=== PATIENT | male | born 1980 | race Caucasian/White ===

== ENCOUNTER → 2017-04-20 | Outpatient (CLI) | payer BC ==
--- NOTE | 2017-04-20 17:31 | ECHOCARDIOGRAM REPORT ---
*NOTICE TO RECEIVING [employer] This information is strictly Confidential and protected under [place] law. [place] law prohibits you from making any further disclosure of this information unless further disclosure is expressly permitted by the written consent of the person to whom it pertains or is authorized by law. A general authorization for the release of medical or other information is not sufficient for this purpose. Hospital accepts no responsibility if the information is made available to any other person, INCLUDING THE PATIENT. Interpretation Summary * Name: JOEL BLACKWELL Study Date: 04/20/2017 03:22 PM BP: 151/68 mmHg * Patient Location: [facility] HR: 88 * : 1980 (M/d/yyyy) Gender: Male Height: 72 in * Age: 37 yrs Ethnicity: CA Weight: 220 lb * Ordering Physician: Dawood Jones * Referring Physician: Dawood Jones * Performed By: Sirisha Brandon RCS * * Reason For Study: Chest Pain * BSA: 2.2 m2 * Normal biventricular systolic function. * Mild concentric left ventricular hypertrophy. * Left ventricular diastolic dysfunction. * Trace tricuspid regurgitation. Procedure Details * A complete two-dimensional transthoracic echocardiogram was performed (2D, M-mode, Doppler and color flow Doppler). Left Ventricle * The left ventricle is normal in size. * There is mild concentric left ventricular hypertrophy. * Left ventricular systolic function is normal. * Ejection Fraction = 65-70%. * Diastolic dysfunction, Grade II (pseudonormalization pattern). * No regional wall motion abnormalities noted. Right Ventricle * The right ventricle is normal in size and function. * The right ventricular systolic function is normal as assessed by tricuspid annular plane systolic excursion (TAPSE) (normal >1.5 cm). Atria * The left atrial size is normal. * Right atrial size is normal. * No ASD detected; PFO is not assessed. Mitral Valve * The mitral valve is normal. * There is no mitral valve stenosis. * There is no mitral regurgitation noted. Tricuspid Valve * The tricuspid valve is normal. * There is no tricuspid stenosis. * There is trace tricuspid regurgitation. * Right ventricular systolic pressure is normal. Aortic Valve * The aortic valve is trileaflet. * The aortic valve opens well. * Aortic stenosis is absent. * No aortic regurgitation is present. Pulmonic Valve * The pulmonic valve is not well visualized. * The pulmonary valve is inadequately visualized, but the Doppler data is adequate for interpretation. * There is no pulmonic valvular stenosis. * There is no pulmonic valvular regurgitation. Great Vessels * The aortic root is normal size. Pericardium/Pleural * There is no pericardial effusion. Great Vessels * Normal inferior vena cava diameter and respiratory variation suggests normal central venous pressure. MMode 2D Measurements and Calculations IVSd 1.4 cm IVSs 1.5 cm LVIDd 5.6 cm LVIDs 2.8 cm LVPWd 1.4 cm LVPWs 1.5 cm IVS/LVPW 0.96 FS 50.2 % EDV(Teich) 153.8 ml ESV(Teich) 29.3 ml EF(Teich) 81.0 % EDV(cubed) 175.8 ml ESV(cubed) 21.7 ml EF(cubed) 87.7 % % IVS thick 9.5 % % LVPW thick 5.6 % LV mass(C)d 346.1 grams LV mass(C)dI 156.0 grams/m\S\2 LV mass(C)s 143.9 grams LV mass(C)sI 64.9 grams/m\S\2 CO(Teich) 10.8 l/min CI(Teich) 4.9 l/min/m\S\2 SV(Teich) 124.5 ml SI(Teich) 56.1 ml/m\S\2 CO(cubed) 13.4 l/min CI(cubed) 6.0 l/min/m\S\2 SV(cubed) 154.1 ml SI(cubed) 69.5 ml/m\S\2 Ao root diam 3.7 cm Ao root area 10.7 cm\S\2 ACS 2.1 cm LA dimension 3.6 cm asc Aorta Diam 3.3 cm LA/Ao 0.97 LVAd ap4 40.5 cm\S\2 LVLd ap4 9.0 cm EDV(MOD-sp4) 151.0 ml LVAs ap4 22.5 cm\S\2 LVLs ap4 7.5 cm ESV(MOD-sp4) 56.0 ml EF(MOD-sp4) 62.9 % LVAd ap2 38.9 cm\S\2 LVLd ap2 9.5 cm EDV(MOD-sp2) 132.0 ml LVAs ap2 21.0 cm\S\2 LVLs ap2 7.4 cm ESV(MOD-sp2) 52.0 ml EF(MOD-sp2) 60.6 % CO(MOD-sp4) 8.3 l/min CI(MOD-sp4) 3.7 l/min/m\S\2 SV(MOD-sp4) 95.0 ml SI(MOD-sp4) 42.8 ml/m\S\2 CO(MOD-sp2) 7.0 l/min CI(MOD-sp2) 3.1 l/min/m\S\2 SV(MOD-sp2) 80.0 ml SI(MOD-sp2) 36.1 ml/m\S\2 Doppler Measurements and Calculations MV E max shoaib 92.2 cm/sec MV A max shoaib 74.0 cm/sec MV E/A 1.2 MV P1/2t max shoaib 111.0 cm/sec MV P1/2t 75.5 msec MVA(P1/2t) 2.9 cm\S\2 MV dec slope 430.5 cm/sec\S\2 MV dec time 0.22 sec Ao V2 max 143.5 cm/sec Ao max PG 8.2 mmHg Ao max PG (full) 0.64 mmHg LV V1 max PG 7.6 mmHg LV V1 max 137.8 cm/sec PA V2 max 118.8 cm/sec PA max PG 5.7 mmHg TR max shoaib 242.9 cm/sec
== END | disposition home or self-care (01) ==
LOC: C.CPL 14:58
PROVIDERS: ATTEND Family Medicine
DX: R07.9 Chest pain, unspecified (principal)

== ENCOUNTER 2020-07-29 10:49 | Inpatient (IN) ==
--- OUTSIDE RECORDS SUMMARY | 2020-07-29 10:52 | External Medical Summary | Continuity of Care Document ---
:1980 Author Name Gopi Bobo, Provider Address Unavailable Unavailable , Care Team Providers Name Role Phone Non[place] Jihan, Provider Unavailable [email or web address] Unavailable Unavailable Unavailable Unavailable Unavailable Problems Apnea, sleep (780.57) (G47.30) Asthma (493.90) (J45.909) Allergies and Adverse Reactions Codeine Derivatives (Allergy) Iodine Solution SOLN (Allergy) Medications PriLOSEC 20 MG CPDR; TAKE 1 CAPSULE TWICE DAILY. Refills: 0 Vyvanse 30 MG Oral Capsule; TAKE 1 CAPSULE DAILY IN THE MORN ING. Refills: 0 Qvar 80 MCG/ACT AERS; INHALE 1 PUFF TWICE DAILY. Refills: 0 Testosterone Cypionate 100 MG/ML OIL; INJECT ML WEEKLKY Refills: 0 Procedures Procedures not documented Immunizations Immunizations not documented Social History - Smoking Status Never smoked tobacco Plan of Treatment Planned Observations Planned Goals not documented Results No Known Results Results not documented
--- OUTSIDE RECORDS SUMMARY | 2020-07-29 10:52 | External Medical Summary | Continuity of Care Document ---
:1980 Author Name Gopi Bobo, Provider Address Unavailable Unavailable , Care Team Providers Name Role Phone Non[place] Jihan, Provider Unavailable [email or web address] Unavailable Unavailable Unavailable Unavailable Unavailable Problems Asthma (493.90) (J45.909) Apnea, sleep (780.57) (G47.30) Allergies and Adverse Reactions Codeine Derivatives (Allergy) Iodine Solution SOLN (Allergy) Medications Qvar 80 MCG/ACT AERS; INHALE 1 PUFF TWICE DAILY. Refills: 0 Testosterone Cypionate 100 MG/ML OIL; INJECT ML WEEKLKY Refills: 0 Vyvanse 30 MG Oral Capsule; TAKE 1 CAPSULE DAILY IN THE MORN ING. Refills: 0 PriLOSEC 20 MG CPDR; TAKE 1 CAPSULE TWICE DAILY. Refills: 0 Procedures Procedures not documented Immunizations Immunizations not documented Social History - Smoking Status Never smoked tobacco Plan of Treatment Planned Observations Planned Goals not documented Results No Known Results Results not documented
[2020-07-29] MEDS ORDERED: ACETAMINOPHEN 1,000 MG/100 ML VIAL IV STA (12:06)
[2020-07-29] MEDS ORDERED: SODIUM CHLORIDE 0.9% 1000ML 1,000 ML IV SCH ×2 (12:15→14:45)
--- NOTE | 2020-07-29 12:21 | Emergency Department Note ---
History of Present Illness General Chief complaint: Confusion Stated complaint: CONFUSION,NAUSEA,LETHARGIC Time Seen by Provider: 07/29/20 11:37 History of Present Illness This is a 40-year-old male presenting to the emergency department with multiple complaints. 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 The patient has had worsening confusion and fatigue over the past few days. The patient woke up this morning around 2 AM to look for his car keys, and was crawling around on the floor looking for them for greater than 30 minutes in the bedroom. The patient does assist in much of the story, and she is also a registered nurse. The is concerned as the patient has had some intermittent headaches today as well as difficulty finding appropriate words for things. The patient states that he is having difficulty with typing on his cell phone and text messages, and feels that his fingers and thumbs are not moving the way they should. The patient has had some COVID-19 exposures but no fevers or chills. He is not having neck pain, chest pain, chest tightness, s hortness of breath, or abdominal pain. He does have a history of ADHD and depression, but has not had any significant recent medication changes. He denies drug or alcohol use. He rates his current discomfort a 4/10. Last known well was 10 PM, greater than 12 hours prior to patient's arrival. Home Medications Medication Instructions Recorded Confirmed Type albuterol sulfate 1 puff INHALATION QID PRN 08/09/18 07/29/20 History omeprazole magnesium [Prilosec OTC] 20 mg PO BID 08/09/18 07/29/20 History bupropion HCl 200 mg PO BID 07/29/20 07/29/20 History dextroamphetamine 30 mg PO BID 07/29/20 07/29/20 History Allergies Allergy/AdvReac Type Severity Reaction Status Date / Time iodine Allergy Severe Anaphylaxis Verified 08/22/18 09:30 codeine Allergy Intermediate Rash Verified 08/22/18 09:30 Past Med/Surg History Medical History (Updated 07/29/20 @ 17:20 by Skyla Fitzgerald DO) ADHD Anxiety Asthma Congenital glaucoma Depression GERD (gastroesophageal reflux disease) Obesity (BMI 30.0-34.9) Sleep apnea CPAP Surgical History H/O wisdom tooth extraction History of adenoidectomy History of colonoscopy History of esophagogastroduodenoscopy (EGD) History of tonsillectomy Family History (Updated 07/29/20 @ 17:13 by Skyla Fitzgerald DO) Denies family history of Myocardial infarction Stroke Social History (Updated 07/29/20 @ 17:13 by Skyla Fitzgerald DO) Smoking Status: Never smoker Second Hand Exposure: No; Do You Dip or Chew Tobacco: No; Hx Alcohol Use: Yes Alcohol type: beer Alcohol Intake Frequency Comment: 2-3 beers or drinks a week Hx Substance Use: No Preferred Language: Surinamese Communication Ability: Effective 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 Beliefs That Will Affect Care: None Current Living Situation: Spouse Current Living Situation Comment: and 2 kids Feels Safe at Home: Yes Safety Concerns: Feels Safe At This Time Assistive Devices: CPAP and Glasses Review of Systems A total of 10 systems reviewed and were otherwise negative Physical Exam Vital Signs Vital Signs - 24 hr 07/29/20 10:55 07/29/20 11:37 07/29/20 11:47 Temperature Temperature Source Oral Pulse Rate 95 H 93 H 95 H Pulse Rate [Right Finger] Pulse Rate from SpO2 Sensor Pulse Rhythm Regular Pulse Rhythm [Right Finger] Pulse Strength Normal Pulse Strength [Right Finger] Respiratory Rate 20 Respiratory Effort / Characteristics Non-Labored Spontaneous Respiratory Depth Normal Respiratory Pattern Regular Blood Pressure 160/82 H 147/72 H Blood Pressure Mean 108 98 Blood Pressure Position Sitting Pulse Oximetry 97 Oxygen Delivery Method Room Air Sepsis Recent Fever Within 48 Hours No Sepsis New/Unexplained Change in Mental Status N/A Sepsis Action Taken by Nursing No Action Required 07/29/20 12:00 07/29/20 12:01 07/29/20 12:30 Temperature Temperature Source Pulse Rate 108 H 100 H 96 H Pulse Rate [Right Finger] Pulse Rate from SpO2 Sensor Pulse Rhythm Pulse Rhythm [Right Finger] Pulse Strength Pulse Strength [Right Finger] Respiratory Rate Respiratory Effort / Characteristics Respiratory Depth Respiratory Pattern Blood Pressure 150/80 H 145/78 H Blood Pressure Mean 96 94 Blood Pressure Position Pulse Oximetry Oxygen Delivery Method Sepsis Recent Fever Within 48 Hours Sepsis New/Unexplained Change in Mental Status Sepsis Action Taken by Nursing 07/29/20 12:55 07/29/20 13:00 07/29/20 13:01 Temperature Temperature Source Pulse Rate 95 H 96 H Pulse Rate [Right Finger] Pulse Rate from SpO2 Sensor 96 H 96 H Pulse Rhythm Pulse Rhythm [Right Finger] Pulse Strength Pulse Strength [Right Finger] Respiratory Rate 15 15 Respiratory Effort / Characteristics Respiratory Depth Respiratory Pattern Blood Pressure 145/69 H Blood Pressure Mean 97 Blood Pressure Position Pulse Oximetry 96 96 Oxygen Delivery Method Room Air Sepsis Recent Fever Within 48 Hours Sepsis New/Unexplained Change in Mental Status Sepsis Action Taken by Nursing 07/29/20 13:02 07/29/20 13:30 07/29/20 14:38 Temperature 37.1 C Temperature Source Pulse Rate 96 H 90 Pulse Rate [Right Finger] Pulse Rate from SpO2 Sensor 96 H 90 Pulse Rhythm Pulse Rhythm [Right Finger] Pulse Strength Pulse Strength [Right Finger] Respiratory Rate 18 Respiratory Effort / Characteristics Respiratory Depth Respiratory Pattern Blood Pressure 151/55 H 140/74 Blood Pressure Mean 98 90 Blood Pressure Position Pulse Oximetry 97 97 Oxygen Delivery Method Sepsis Recent Fever Within 48 Hours Sepsis New/Unexplained Change in Mental Status Sepsis Action Taken by Nursing 07/29/20 14:49 07/29/20 16:10 07/29/20 16:11 Temperature Temperature Source Pulse Rate Pulse Rate [Right Finger] 91 H Pulse Rate from SpO2 Sensor 91 H 91 H Pulse Rhythm Pulse Rhythm [Right Finger] Regular Pulse Strength Pulse Strength [Right Finger] Normal Respiratory Rate 18 Respiratory Effort / Characteristics Non-Labored Spontaneous Respiratory Depth Normal Respiratory Pattern Blood Pressure 147/64 H Blood Pressure Mean 91 Blood Pressure Position Pulse Oximetry 98 97 96 Oxygen Delivery Method Room Air Room Air Room Air Sepsis Recent Fever Within 48 Hours Sepsis New/Unexplained Change in Mental Status Sepsis Action Taken by Nursing 07/29/20 16:30 07/29/20 16:31 07/29/20 17:00 Temperature Temperature Source Pulse Rate Pulse Rate [Right Finger] Pulse Rate from SpO2 Sensor 91 H 89 Pulse Rhythm Pulse Rhythm [Right Finger] Pulse Strength Pulse Strength [Right Finger] Respiratory Rate Respiratory Effort / Characteristics Respiratory Depth Respiratory Pattern Blood Pressure 149/86 H 139/64 Blood Pressure Mean 103 83 Blood Pressure Position Pulse Oximetry 98 95 Oxygen Delivery Method Room Air Room Air Sepsis Recent Fever Within 48 Hours Sepsis New/Unexplained Change in Mental Status Sepsis Action Taken by Nursing 07/29/20 17:01 Temperature Temperature Source Pulse Rate Pulse Rate [Right Finger] Pulse Rate from SpO2 Sensor 87 Pulse Rhythm Pulse Rhythm [Right Finger] Pulse Strength Pulse Strength [Right Finger] Respiratory Rate Respiratory Effort / Characteristics Respiratory Depth Respiratory Pattern Blood Pressure Blood Pressure Mean Blood Pressure Position Pulse Oximetry 97 Oxygen Delivery Method Room Air Sepsis Recent Fever Within 48 Hours Sepsis New/Unexplained Change in Mental Status Sepsis Action Taken by Nursing VITALS: Vitals are noted on the nurse's note and reviewed by myself. Vital signs stable. GENERAL: Well-developed, well-nourished, white male who does stutter at baseline. He is diaphoretic and sweating profoundly. Patient is cooperative with the examination. HEAD: Normocephalic atraumatic. EARS: External ear normal. External auditory canals clear, tympanic membranes pearly hunter without erythema or effusion bilaterally. EYES: Pupils equal round and reactive to light and accommodation. Conjunctivae without injection, sclerae without icterus. Extraocular movements intact. NOSE: Patent, turbinates without inflammation or discharge. MOUTH: Mucous membranes moist. Tonsils are not enlarged. Pharynx without eryt bill, blood, or exudate. Uvula midline. Airway patent. NECK: Supple without nuchal rigidity. No lymphadenopathy. No thyromegaly. Cervical spine is nontender. HEART: Regular rate and rhythm without murmurs gallops or rubs. LUNGS: Clear to auscultation bilaterally without wheezes, rales or rhonchi. No retractions or accessory muscle use. ABDOMEN: Positive normal bowel sounds x 4. Soft, nontender, without masses or organomegaly. No guarding or rebound tenderness. MUSCULOSKELETAL: No muscle atrophy, erythema, or edema noted. Full range of motion in all extremities. No tenderness to palpation. Cra Officer strength 5/5. NEURO: Patient was alert and oriented to person place and time. CN II through XII grossly intact. No focal neurological deficits. GCS 15. Patellar reflex intact bilateral. SKIN: The skin was without rashes, erythema, edema, or bruising. Capillary refill less than 2 seconds. Course Administered Medications Bupropion HCl (Bupropion Sr 100 Mg Tabcr) 200 mg PO BID [facility] Stop: 08/28/20 20:59 Last Admin: 07/29/20 20:38 Dose: 200 mg Documented by: [id number] Sodium Chloride (Nss 1000ml) 1,000 mls @ 150 mls/hr IV .Q6H40M MATHEW Stop: 08/28/20 19:23 Last Admin: 07/30/20 03:30 Dose: 150 mls/hr Documented by: [id number] Infusion: 07/30/20 03:16 Dose: 150 mls/hr Documented by: [id number] Admin: 07/29/20 20:35 Dose: 150 mls/hr Documented by: [id number] Pantoprazole Sodium (Pantoprazole 40 Mg Tab) 40 mg PO BID MATHEW Stop: 08/28/20 20:59 Last Admin: 07/29/20 20:39 Dose: 40 mg Documented by: [id number] Discontinued Medications Sodium Chloride (Nss 1000ml) 1,000 mls @ 999 mls/hr IV .Q1H1M MATHEW Stop: 07/29/20 13:15 Last Infusion: 07/29/20 13:51 Dose: 0 mls/hr Documented by: [id number] Admin: 07/29/20 12:50 Dose: 999 mls/hr Documented by: [id number] Acetaminophen (Ofirmev) 1,000 mg in 100 mls @ 400 mls/hr IV NOW STA Stop: 07/29/20 12:20 Last Infusion: 07/29/20 13:05 Dose: 0 mls/hr Documented by: [id number] Admin: 07/29/20 12:50 Dose: 400 mls/hr Documented by: [id number] Sodium Chloride (Nss 1000ml) 1,000 mls @ 999 mls/hr IV .Q1H1M MATHEW Stop: 07/29/20 15:45 Last Infusion: 07/29/20 15:51 Dose: 0 mls/hr Documented by: [id number] Admin: 07/29/20 14:50 Dose: 999 mls/hr Documented by: [id number] Medical Decision Making Differential Diagnosis Differential includes infection, acute coronary syndrome, myocardial infarction, CVA, TIA, anemia, infection, pneumonia, UTI, pyelonephritis, poor nutrition, dehydration, electrolyte disturbance,hypoglycemia. Laboratory Data Result diagrams: 07/29/20 11:25 07/29/20 11:25 Lab Results 07/29/20 07/29/20 07/29/20 Range/Units 11:25 11:25 11:25 WBC 9.24 (4.8-10.8) K/uL RBC 6.71 H (4.7-6.1) M/uL Hgb 19.3 H (14.0-18.0) g/dL Hct 58.4 H (42-52) % MCV 87.0 (80-100) fL MCH 28.8 (25-34) pg MCHC 33.0 (32-36) g/dL RDW Std Deviation 51.8 H (36.4-46.3) fL RDW Coeff of Ron 16.3 H (11.5-14.5) % Plt Count 314 (130-400) K/uL MPV 9.6 (7.4-10.4) fL Immature Gran % (Auto) 0.4 % Neut % (Auto) 55.9 % Lymph % (Auto) 28.1 % [place] % (Auto) 13.6 % Eos % (Auto) 1.7 % Baso % (Auto) 0.3 % Neut # (Auto) 5.15 (1.4-6.5) K/uL Lymph # (Auto) 2.60 (1.2-3.4) K/uL [place] # (Auto) 1.26 H (0.11-0.59) K/uL Eos # (Auto) 0.16 (0-0.5) K/uL Baso # (Auto) 0.03 (0-0.2) K/uL Immature Gran # (Auto) 0.04 H (0.00-0.02) K/uL ESR 3 (0-14) mm/hr PT INR APTT PTT Ratio Sodium 140 (136-145) mmol/L Potassium 4.5 (3.5-5.1) mmol/L Chloride 109 H (98-107) mmol/L Carbon Dioxide 24 (21-32) mmol/L Anion Gap 7.0 (3-11) BUN 21 H (7-18) mg/dl Creatinine 1.44 H (0.6-1.4) mg/dl Est Cr Clr Drug Dosing Not Reportable Est GFR ( Amer) 70.9 Est GFR (Non-Af Amer) 61.2 BUN/Creatinine Ratio 14.2 (10-20) Glucose 107 H (70-99) mg/dl Lactate (0.4-2.0) mmol/L Calcium 9.6 (8.5-10.1) mg/dl Magnesium TNP Total Bilirubin 0.7 (0.2-1) mg/dl AST 40 H (15-37) U/L ALT 32 (12-78) U/L Alkaline Phosphatase 53 (45-117) U/L Total Creatine Kinase CK-MB (CK-2) CK/CKMB % Calc Troponin I < 0.015 (0-0.045) ng/ml C-Reactive Protein < 0.29 (0-0.29) mg/dl Total Protein 7.6 (6.4-8.2) gm/dl Albumin 3.4 (3.4-5.0) gm/dl Globulin 4.2 H (2.5-4.0) gm/dl Albumin/Globulin Ratio 0.8 L (0.9-2) Lipase 315 (73-393) U/L TSH 1.590 (0.300-4.500) uIu/ml Urine Color Urine Appearance (Clear) Urine pH (4.5-7.5) Ur Specific [place] (1.000-1.030) Urine Protein (Negative) Urine Glucose (UA) (Negative) Urine Ketones (Negative) Urine Blood (Negative) Urine Nitrite (Negative) Urine Bilirubin (Negative) Urine Urobilinogen (Negative) Ur Leukocyte Esterase (Negative) Urine WBC (Auto) (0-5) /hpf Urine RBC (Auto) (0-4) /hpf U Hyaline Cast (Auto) (0-5) /lpf U Epithel Cells (Auto) (0-5) /lpf Urine Bacteria (Auto) (Negative) Urine Opiates Screen (Neg) Ur Methadone, Qual (Neg) Urine Barbiturates (Neg) Ur Phencyclidine (PCP) (Neg) U Amphetamin/Meth Scrn (Neg) MDMA (Ecstasy) Screen (Neg) U Benzodiazepines Scrn (Neg) Ur Cocaine Metabolite (Neg) U Marijuana (THC) Screen (Neg) Ethyl Alcohol mg/dL (0-3) mg/dl Lyme Disease IgG Ab (Negative) Lyme Disease IgM Ab (Negative) 07/29/20 07/29/20 07/29/20 Range/Units 11:25 11:25 11:25 WBC (4.8-10.8) K/uL RBC (4.7-6.1) M/uL Hgb (14.0-18.0) g/dL Hct (42-52) % MCV (80-100) fL MCH (25-34) pg MCHC (32-36) g/dL RDW Std Deviation (36.4-46.3) fL RDW Coeff of Ron (11.5-14.5) % Plt Count (130-400) K/uL MPV (7.4-10.4) fL Immature Gran % (Auto) % Neut % (Auto) % Lymph % (Auto) % [place] % (Auto) % Eos % (Auto) % Baso % (Auto) % Neut # (Auto) (1.4-6.5) K/uL Lymph # (Auto) (1.2-3.4) K/uL [place] # (Auto) (0.11-0.59) K/uL Eos # (Auto) (0-0.5) K/uL Baso # (Auto) (0-0.2) K/uL Immature Gran # (Auto) (0.00-0.02) K/uL ESR (0-14) mm/hr PT Cancelled INR Cancelled APTT Cancelled PTT Ratio Cancelled Sodium (136-145) mmol/L Potassium (3.5-5.1) mmol/L Chloride (98-107) mmol/L Carbon Dioxide (21-32) mmol/L Anion Gap (3-11) BUN (7-18) mg/dl Creatinine (0.6-1.4) mg/dl Est Cr Clr Drug Dosing Est GFR ( Amer) Est GFR (Non-Af Amer) BUN/Creatinine Ratio (10-20) Glucose (70-99) mg/dl Lactate (0.4-2.0) mmol/L Calcium (8.5-10.1) mg/dl Magnesium Total Bilirubin (0.2-1) mg/dl AST (15-37) U/L ALT (12-78) U/L Alkaline Phosphatase (45-117) U/L Total Creatine Kinase Cancelled CK-MB (CK-2) Cancelled CK/CKMB % Calc Cancelled Troponin I (0-0.045) ng/ml C-Reactive Protein (0-0.29) mg/dl Total Protein (6.4-8.2) gm/dl Albumin (3.4-5.0) gm/dl Globulin (2.5-4.0) gm/dl Albumin/Globulin Ratio (0.9-2) Lipase (73-393) U/L TSH (0.300-4.500) uIu/ml Urine Color Urine Appearance (Clear) Urine pH (4.5-7.5) Ur Specific [place] (1.000-1.030) Urine Protein (Negative) Urine Glucose (UA) (Negative) Urine Ketones (Negative) Urine Blood (Negative) Urine Nitrite (Negative) Urine Bilirubin (Negative) Urine Urobilinogen (Negative) Ur Leukocyte Esterase (Negative) Urine WBC (Auto) (0-5) /hpf Urine RBC (Auto) (0-4) /hpf U Hyaline Cast (Auto) (0-5) /lpf U Epithel Cells (Auto) (0-5) /lpf Urine Bacteria (Auto) (Negative) Urine Opiates Screen (Neg) Ur Methadone, Qual (Neg) Urine Barbiturates (Neg) Ur Phencyclidine (PCP) (Neg) U Amphetamin/Meth Scrn (Neg) MDMA (Ecstasy) Screen (Neg) U Benzodiazepines Scrn (Neg) Ur Cocaine Metabolite (Neg) U Marijuana (THC) Screen (Neg) Ethyl Alcohol mg/dL (0-3) mg/dl Lyme Disease IgG Ab Negative (Negative) Lyme Disease IgM Ab Negative (Negative) 07/29/20 07/29/20 07/29/20 Range/Units 13:10 13:10 13:24 WBC (4.8-10.8) K/uL RBC (4.7-6.1) M/uL Hgb (14.0-18.0) g/dL Hct (42-52) % MCV (80-100) fL MCH (25-34) pg MCHC (32-36) g/dL RDW Std Deviation (36.4-46.3) fL RDW Coeff of Ron (11.5-14.5) % Plt Count (130-400) K/uL MPV (7.4-10.4) fL Immature Gran % (Auto) % Neut % (Auto) % Lymph % (Auto) % [place] % (Auto) % Eos % (Auto) % Baso % (Auto) % Neut # (Auto) (1.4-6.5) K/uL Lymph # (Auto) (1.2-3.4) K/uL [place] # (Auto) (0.11-0.59) K/uL Eos # (Auto) (0-0.5) K/uL Baso # (Auto) (0-0.2) K/uL Immature Gran # (Auto) (0.00-0.02) K/uL ESR (0-14) mm/hr PT 12.3 H INR 1.2 H APTT 24.2 PTT Ratio 0.9 Sodium (136-145) mmol/L Potassium (3.5-5.1) mmol/L Chloride (98-107) mmol/L Carbon Dioxide (21-32) mmol/L Anion Gap (3-11) BUN (7-18) mg/dl Creatinine (0.6-1.4) mg/dl Est Cr Clr Drug Dosing Est GFR ( Amer) Est GFR (Non-Af Amer) BUN/Creatinine Ratio (10-20) Glucose (70-99) mg/dl Lactate 0.7 (0.4-2.0) mmol/L Calcium (8.5-10.1) mg/dl Magnesium Total Bilirubin (0.2-1) mg/dl AST (15-37) U/L ALT (12-78) U/L Alkaline Phosphatase (45-117) U/L Total Creatine Kinase CK-MB (CK-2) CK/CKMB % Calc Troponin I (0-0.045) ng/ml C-Reactive Protein (0-0.29) mg/dl Total Protein (6.4-8.2) gm/dl Albumin (3.4-5.0) gm/dl Globulin (2.5-4.0) gm/dl Albumin/Globulin Ratio (0.9-2) Lipase (73-393) U/L TSH (0.300-4.500) uIu/ml Urine Color Urine Appearance (Clear) Urine pH (4.5-7.5) Ur Specific [place] (1.000-1.030) Urine Protein (Negative) Urine Glucose (UA) (Negative) Urine Ketones (Negative) Urine Blood (Negative) Urine Nitrite (Negative) Urine Bilirubin (Negative) Urine Urobilinogen (Negative) Ur Leukocyte Esterase (Negative) Urine WBC (Auto) (0-5) /hpf Urine RBC (Auto) (0-4) /hpf U Hyaline Cast (Auto) (0-5) /lpf U Epithel Cells (Auto) (0-5) /lpf Urine Bacteria (Auto) (Negative) Urine Opiates Screen (Neg) Ur Methadone, Qual (Neg) Urine Barbiturates (Neg) Ur Phencyclidine (PCP) (Neg) U Amphetamin/Meth Scrn (Neg) MDMA (Ecstasy) Screen (Neg) U Benzodiazepines Scrn (Neg) Ur Cocaine Metabolite (Neg) U Marijuana (THC) Screen (Neg) Ethyl Alcohol mg/dL < 3.0 (0-3) mg/dl Lyme Disease IgG Ab (Negative) Lyme Disease IgM Ab (Negative) 07/29/20 07/29/20 Range/Units 15:50 15:50 WBC (4.8-10.8) K/uL RBC (4.7-6.1) M/uL Hgb (14.0-18.0) g/dL Hct (42-52) % MCV (80-100) fL MCH (25-34) pg MCHC (32-36) g/dL RDW Std Deviation (36.4-46.3) fL RDW Coeff of Ron (11.5-14.5) % Plt Count (130-400) K/uL MPV (7.4-10.4) fL Immature Gran % (Auto) % Neut % (Auto) % Lymph % (Auto) % [place] % (Auto) % Eos % (Auto) % Baso % (Auto) % Neut # (Auto) (1.4-6.5) K/uL Lymph # (Auto) (1.2-3.4) K/uL [place] # (Auto) (0.11-0.59) K/uL Eos # (Auto) (0-0.5) K/uL Baso # (Auto) (0-0.2) K/uL Immature Gran # (Auto) (0.00-0.02) K/uL ESR (0-14) mm/hr PT INR APTT PTT Ratio Sodium (136-145) mmol/L Potassium (3.5-5.1) mmol/L Chloride (98-107) mmol/L Carbon Dioxide (21-32) mmol/L Anion Gap (3-11) BUN (7-18) mg/dl Creatinine (0.6-1.4) mg/dl Est Cr Clr Drug Dosing Est GFR ( Amer) Est GFR (Non-Af Amer) BUN/Creatinine Ratio (10-20) Glucose (70-99) mg/dl Lactate (0.4-2.0) mmol/L Calcium (8.5-10.1) mg/dl Magnesium Total Bilirubin (0.2-1) mg/dl AST (15-37) U/L ALT (12-78) U/L Alkaline Phosphatase (45-117) U/L Total Creatine Kinase CK-MB (CK-2) CK/CKMB % Calc Troponin I (0-0.045) ng/ml C-Reactive Protein (0-0.29) mg/dl Total Protein (6.4-8.2) gm/dl Albumin (3.4-5.0) gm/dl Globulin (2.5-4.0) gm/dl Albumin/Globulin Ratio (0.9-2) Lipase (73-393) U/L TSH (0.300-4.500) uIu/ml Urine Color Dark Yellow Urine Appearance Clear (Clear) Urine pH 6.5 (4.5-7.5) Ur Specific [place] 1.025 (1.000-1.030) Urine Protein Negative (Negative) Urine Glucose (UA) Negative (Negative) Urine Ketones Negative (Negative) Urine Blood Trace H (Negative) Urine Nitrite Negative (Negative) Urine Bilirubin Negative (Negative) Urine Urobilinogen Negative (Negative) Ur Leukocyte Esterase Negative (Negative) Urine WBC (Auto) 1-5 (0-5) /hpf Urine RBC (Auto) 0-4 (0-4) /hpf U Hyaline Cast (Auto) 0 (0-5) /lpf U Epithel Cells (Auto) 0-5 (0-5) /lpf Urine Bacteria (Auto) Negative (Negative) Urine Opiates Screen Neg (Neg) Ur Methadone, Qual Neg (Neg) Urine Barbiturates Neg (Neg) Ur Phencyclidine (PCP) Neg (Neg) U Amphetamin/Meth Scrn Neg (Neg) MDMA (Ecstasy) Screen Pos H (Neg) U Benzodiazepines Scrn Neg (Neg) Ur Cocaine Metabolite Neg (Neg) U Marijuana (THC) Screen Neg (Neg) Ethyl Alcohol mg/dL (0-3) mg/dl Lyme Disease IgG Ab (Negative) Lyme Disease IgM Ab (Negative) Imaging Data Radiologist's Impression: CT SCAN OF THE BRAIN WITHOUT IV CONTRAST CLINICAL HISTORY: Change in mental status. COMPARISON STUDY: No priors. TECHNIQUE: Unenhanced axial CT scan of the brain is performed from the vertex to the skull base. A dose lowering technique was utilized adhering to the principles of ALARA. CT DOSE: 669.45 mGycm FINDINGS: Brain parenchyma: The brain parenchyma is normal in appearance. There is no hemorrhage, mass effect, or evidence of acute territorial ischemia by CT criteria. Hunter-white matter differentiation is preserved. No extra-axial fluid collection is seen. Ventricles, sulci, cisterns: Normal in configuration. Intracranial vasculature: The visualized intracranial vasculature at the skull base is normal in appearance. Calvarium: Unremarkable. Sinuses and mastoids: The visualized paranasal sinuses are clear. The mastoid air cells are well pneumatized. Orbits: The bony orbits are grossly intact. IMPRESSION: No acute intracranial abnormality. XR chest 1V portable CLINICAL HISTORY: altered mental. covid exposure COMPARISON STUDY: No previous studies for comparison. FINDINGS: Lung volumes are normal. Lungs are clear. There is no pneumothorax or pleural effusion. Cardiac size is normal. Mediastinal contours are normal. There is no evidence for pulmonary edema. IMPRESSION: No acute cardiopulmonary findings. ECG Data Attestation: I personally reviewed and interpreted this ECG as follows: Indication: + altered mental status Additional Comments: Normal sinus rhythm @94 bpm Possible Left atrial enlargement Borderline ECG No previous ECGs available MDM Narrative Physical exam and history were performed. Nursing notes, EMR, and Medication List were personally reviewed. Patient appears to have confusion and altered mental status. The patient does have a stutter at baseline, but does have difficulty with finding his words today. Much of the history is provided by his , and both the and patient seem very reliable regarding the history. IV access was established and labs were obtained. The patient is very diaphoretic without fever here in the ER. He was given a total of 3 L IV fluids as well as IV Tylenol. Covid testing was performed. EKG as above. An order was placed for continuous cardiac monitoring. The monitor shows a rate of 78 with normal sinus rhythm. The patient's blood work is as above and was reviewed. He does not have an elevated white blood cell count. He does have an elevated hemoglobin of 19.3, however this is reported to be normal by the patient and his . Sed rate and CRP are normal. INR is 1.2. Creatinine is slightly elevated at 1.44. CK is 335. Troponin is nondetectable. Lipase and transaminases are nondiagnostic. Urine is very dark, however it is without significant evidence of infection or other findings. Drug abuse screen is positive for ecstasy, however this is likely a cross positive from his bupropion. Lyme and Covid were both negative. Chest x-ray and CT of the head were reviewed by myself and radiology showing no acute process. The patient was reevaluated multiple times at the course of his stay. The patient continues to appear unwell and altered. His case was discussed with my attending, Dr. Greenwood, who also independently evaluated the patient. We agree that his work-up in the ER is thankfully unremarkable, however his clinical course is still quite concerning. Because of his symptoms the case was discussed with the on-call hospitalist, who agreed to evaluate the patient here in the ER. Please see their dictation for further patient course, plan, and disposition. The chart was completed utilizing [employer] Speech Voice Recognition Software. Gram matical errors, random word insertions, pronoun errors, and incomplete sentences are an occasional consequence of this system due to software limitations, ambient noise, and hardware issues. Any formal questions or concerns about the content, text, or information contained within the body of this dictation should be directly addressed to the provider for clarification. . Impression & Plan Altered mental status, Confusion, Word finding difficulty, Dehydration Discharge Plan Visit Data Chief Complaint: Confusion Stated Complaint: CONFUSION,NAUSEA,LETHARGIC ED Provider: Dawood Greenwood ED Midlevel Provider: Dg Rebollar Discharge Problem: Altered mental status, Confusion, Word finding difficulty, Dehydration Patient Disposition: Admitted As Inpatient Discharge Instructions Interventions: ED Discharge Assessment Last Done: 07/29/20 18:49 Discharge Problem: Altered mental status Qualifiers: Altered mental status type: unspecified Qualified Code(s): R41.82 - Altered mental status, unspecified
[2020-07-29 12:34] LABS: Basophils # (auto) 0.03 K/uL (0-0.2); Basophils % (auto) 0.3 %; Eosinophils # (auto) 0.16 K/uL (0-0.5); Eosinophils % (auto) 1.7 %; Hematocrit (blood only) 58.4 % (42-52); Hemoglobin 19.3 g/dL (14.0-18.0); Immature Granulocytes # (auto) 0.04 K/uL (0.00-0.02); Immature Granulocytes % (auto) 0.4 %; Lymphocytes % (auto) 28.1 %; Mean Corpuscular Hemoglobin 28.8 pg (25-34); Mean Platelet Volume 9.6 fL (7.4-10.4); Monocytes # (auto) 1.26 K/uL (0.11-0.59); Monocytes % (auto) 13.6 %; Neutrophils # (auto) 5.15 K/uL (1.4-6.5); Neutrophils % (auto) 55.9 %; Platelet Count 314 K/uL (130-400); RDW Coefficient of Variation 16.3 % (11.5-14.5); RDW Standard Deviation 51.8 fL (36.4-46.3); Red Blood Count 6.71 M/uL (4.7-6.1); White Blood Count 9.24 K/uL (4.8-10.8)
--- NOTE | 2020-07-29 12:44 | XRay Report ---
XR chest 1V portable CLINICAL HISTORY: altered mental. covid exposure COMPARISON STUDY: No previous studies for comparison. FINDINGS: Lung volumes are normal. Lungs are clear. There is no pneumothorax or pleural effusion. Car diac size is normal. Mediastinal contours are normal. There is no evidence for pulmonary edema. IMPRESSION: No acute cardiopulmonary findings. ACT 112: Negative or not required by law. Electronically signed by: Chance Reid M.D. 07/29/2020 12:42 PM
[2020-07-29 12:59] LABS: Alanine Aminotransferase 32 U/L (12-78); Albumin Level 3.4 gm/dl (3.4-5.0); Aspartate Aminotransferase 40 U/L (15-37); BUN Creatinine Ratio 14.2 (10-20); Blood Urea Nitrogen 21 mg/dl (7-18); C Reactive Protein < 0.29 mg/dl (0-0.29); Calcium 9.6 mg/dl (8.5-10.1); Carbon Dioxide 24 mmol/L (21-32); Chloride 109 mmol/L (98-107); Est GFR (African American) 70.9; Est GFR (Non-African American) 61.2; Glucose 107 mg/dl (70-99); Lipase 315 U/L (73-393); Potassium 4.5 mmol/L (3.5-5.1); Sodium 140 mmol/L (136-145)
[2020-07-29 13:01] LABS: Albumin Globulin Ratio 0.8 (0.9-2); Alkaline Phosphatase 53 U/L (45-117); Bilirubin,Total 0.7 mg/dl (0.2-1); Globulin 4.2 gm/dl (2.5-4.0); Total Protein 7.6 gm/dl (6.4-8.2); Troponin I < 0.015 ng/ml (0-0.045)
[2020-07-29 13:42] LABS: INR 1.2 (0.9-1.1); Partial Thromboplastin Ratio 0.9; Partial Thromboplastin Time 24.2 Seconds (21.0-31.0); Prothrombin Time 12.3 Seconds (9.0-12.0)
[2020-07-29 13:47] LABS: Lyme Ab IgG w/WB Rflx Negative (Negative); Lyme Ab IgM w/WB Rflx Negative (Negative)
--- NOTE | 2020-07-29 13:57 | CT Scan Report ---
CT SCAN OF THE BRAIN WITHOUT IV CONTRAST CLINICAL HISTORY: Change in mental status. COMPARISON STUDY: No priors. TECHNIQUE: Unenhanced axial CT scan of the brain is performed from the vertex to the skull base. A d ose lowering technique was utilized adhering to the principles of ALARA. CT DOSE: 669.45 mGycm FINDINGS: Brain parenchyma: The brain parenchyma is normal in appearance. There is no hemorrhage, mass effect, or evidence of acute territorial ischemia by CT criteria. Hunter-white matter differentiation is preser fortino. No extra-axial fluid collection is seen. Ventricles, sulci, cisterns: Normal in configuration. Intracranial vasculature: The visualized intracranial vasculature at the skull base is normal in appe arance. Calvarium: Unremarkable. Sinuses and mastoids: The visualized paranasal sinuses are clear. The mastoid air cells are well pneu matized. Orbits: The bony orbits are grossly intact. IMPRESSION: No acute intracranial abnormality. ACT 112: Negative or not required by law. Electronically signed by: Sebas Quintana M.D. 07/29/2020 1:55 PM
--- NOTE | 2020-07-29 15:12 | Emergency Department Note ---
General (ED) Blank Date of Service July 29, 2020 This patient has had episodes where he has been confused and also having trouble getting words out for the last several days it got worse last night. He was looking for his keys under the bed apparently he also feels like he is having a hard time texting but has no focal numbness or weakness. He denies a fever or headache or neck pain or stiffness. No fall or trauma. He does have a baseline stutter and has a hard time with words at baseline but he says he is definitely different. We did extensive work-up and thus far his work-up was unremarkable Covid test was negative CAT scan of his head was negative electrolytes and Lyme testing were negative. On my exam, he has no meningeal signs or stiffness he is well-appearing and nontoxic. He has a normal neurologic exam he was complaining that he is some coordination issues with his hands bilaterally but has got good normal motor and sensation intact reflexes in the upper extremities therefore unlikely Guillian- Khan at this point. I do think that he would benefit from a further work-up including MRIs and neurologic work-up this could be some thing like a demyelinating disorder and less likely a stroke. 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 I did recommend that he stay in the hospital for further neurologic work-up and he is going to check with his .
[2020-07-29 16:11] LABS: Appearance Urine Clear (Clear); Bacteria Urine Automated Negative (Negative); Bilirubin Urine Negative (Negative); Blood Urine Trace (Negative); Cast Urine Automated 0 /lpf (0-5); Color Urine Dark Yellow; Epithelial Cell Urine Auto 0-5 /lpf (0-5); Glucose Urine UA Negative (Negative); Ketones Urine Negative (Negative); Leukocyte Esterase Urine Negative (Negative); Nitrite Urine Negative (Negative); Protein Urine Negative (Negative); RBC Urine Automated 0-4 /hpf (0-4); Specific Gravity Urine 1.025 (1.000-1.030); Urobilinogen Urine Negative (Negative); pH Urine 6.5 (4.5-7.5)
[2020-07-29 16:25] LABS: Amphetamines+Metham, Urine Neg (Neg); Barbiturates, Urine Neg (Neg); Benzodiazepine, Urine Neg (Neg); Cocaine, Urine Neg (Neg); MDMA (Ecstacy), Urine Pos (Neg); Methadone, Urine Neg (Neg); Opiate, Urine Neg (Neg); Phencyclidine, Urine Neg (Neg)
--- NOTE | 2020-07-29 17:18 | History & Physical Report ---
Date of Service July 29, 2020 Assessment & Plan (1) ENRRIQUE (acute kidney injury): Likely early rhabdo given diaphoresis, confusion, tea colored urine CK levels mildly elevated Possibly due to dextroamphetamine use in the setting of decreased water intake and intense weight lifting Denies other herbal or supplement use Monitor with IVF Hold dextroamphetamine for now (2) Altered mental status: Likely related to above Monitor with IVF Trop neg x1, EKG WNL CT head: neg for acute CXR: neg for acute Lyme neg CBC WNL Electrolytes WNL ESR, CRP, TSH, lactic acid WNL Utox + for MDMA, likely a cross over with wellbutrin use EtOH neg Blood cx, urine cx pending COVID neg (3) Hematuria: Likely related to above Urine cx pending Holding on abx for now given UTI less likely WBC WNL, afebrile (4) Sleep apnea: CPAP as at home (5) GERD (gastroesophageal reflux disease): continue home meds (6) Depression: continue wellbutrin (7) Anxiety: continue wellbutrin (8) ADHD: Holding dextroamphetamine as above (9) DVT prophylaxis: SCDs History of Present Illness Primary Care Provider: Dawood Jones 40 y/o M who came to the ED for worsening confusion and sweating. Pt states that he has felt intermittent confusion for the last 3 days. He has been very h ot and sweating, but no fevers. This was worse last night when he was found crawling around him bedroom looking for keys in the middle of the night. His had to talk him out of doing this and then when asked about it this morning, pt did not remember the episode. states that pt was not making sense and showing word salad this morning. Pt states he has been having burning with urination and very dark urine for a few days. describes urine as tea colored. Pt states he also noted that he could not use his fingers appropriately while texting "they wouldn't push the buttons". No inability to use extremities, but diminished fine motor with his hands overall. Pt states he feels incredibly fatigued the last few days. 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 Pt denies fever, SOB, chest pain, abd pain, n/v, LE pain or swelling. No coughing. Pt has noted mild diarrhea the last few days. 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 He states that he gets about 3-4 hours of sleep a night, but this is unchanged for the last year, especially with both he and his working as well as both attending [employer] school. They also have a 2 year old who doesn't really sleep much. Pt works out regularly, mostly heavy lifting, which he does 5 days a week and describes as intense workouts. No cardio workouts or HIIT workouts. He does drink water, but states that his intake "could be better". He does drink a lot of diet ice tea during the day and a diet Mountain Dew maybe once a day. states that pt is interacting like usual now s/p IVF. No further confusion or word salad. states pt's color is usual for him--generally more cleary. Pt takes dextropmphetamine and buproprion, but these are not new medications and no dosage changes. He and both deny increased use, either accidental due to work schedules or intentional. Denies supplement or herbal use. Denies energy drink use. Caffeine is noted as above. Allergies Allergy/AdvReac Type Severity Reaction Status Date / Time iodine Allergy Severe Anaphylaxis Verified 08/22/18 09:30 codeine Allergy Intermediate Rash Verified 08/22/18 09:30 Home Medications Medication Instructions Recorded Confirmed Type albuterol sulfate 1 puff INHALATION QID PRN 08/09/18 07/29/20 History omeprazole magnesium [Prilosec OTC] 20 mg PO BID 08/09/18 07/29/20 History bupropion HCl 200 mg PO BID 07/29/20 07/29/20 History dextroamphetamine 30 mg PO BID 07/29/20 07/29/20 History Past Med/Surg History Medical History (Updated 07/29/20 @ 17:20 by Skyla Fitzgerald DO) ADHD Anxiety Asthma Congenital glaucoma Depression GERD (gastroesophageal reflux disease) Obesity (BMI 30.0-34.9) Sleep apnea CPAP Surgical History H/O wisdom tooth extraction History of adenoidectomy History of colonoscopy History of esophagogastroduodenoscopy (EGD) History of tonsillectomy Family History (Updated 07/29/20 @ 17:13 by Skyla Fitzgerald DO) Denies family history of Myocardial infarction Stroke Social History (Updated 07/29/20 @ 17:13 by Skyla Fitzgerald DO) Smoking Status: Never smoker Second Hand Exposure: No; Do You Dip or Chew Tobacco: No; Hx Alcohol Use: Yes Alcohol type: beer Alcohol Intake Frequency Comment: 2-3 beers or drinks a week Hx Substance Use: No Preferred Language: Montenegrin Communication Ability: Effective 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 Beliefs That Will Affect Care: None Current Living Situation: Spouse Current Living Situation Comment: and 2 kids Feels Safe at Home: Yes Safety Concerns: Feels Safe At This Time Assistive Devices: CPAP and Glasses Review of Systems Review of Systems: Pertinent positives and negatives reviewed in HPI--all others negative Physical Exam Constitutional: WD/WN, vitals as above + diaphoretic Eyes: normal visual garcía by confrontation and + anicteric sclerae Neck: normal visual inspection and trachea midline Respiratory: normal respiratory effort, lungs clear to auscultation Cardiovascular: Rate/Rhythm: regular rate and regular rhythm Gastrointestinal (Abdomen): Inspection/Auscultation: abdomen not distended Percussion/Palpation: abdomen soft; abdomen nontender Musculoskeletal: Head/Neck/Chest: normocephalic and head atraumatic negative for edema, peripheral pulses intact Skin: no rashes, warm and dry Neurologic: awake; not confused Speech / Cognition: normal speech (although occasional stuttering) Psychiatric: A+Ox3, euthymic affect Results & Data Results & Data ([facility]) Vital Signs (Past 12 Hours) Vital Signs Temp Pulse Pulse Resp BP Pulse Ox 07/29/20 16:31 98 07/29/20 16:30 149/86 H 07/29/20 16:11 96 07/29/20 16:10 147/64 H 97 07/29/20 14:49 91 H 18 98 07/29/20 14:38 37.1 C 140/74 07/29/20 13:30 90 151/55 H 97 07/29/20 13:02 96 H 18 97 07/29/20 13:01 96 H 15 145/69 H 96 07/29/20 13:00 95 H 15 96 07/29/20 12:30 96 H 145/78 H 07/29/20 12:01 100 H 07/29/20 12:00 108 H 150/80 H 07/29/20 11:47 95 H 07/29/20 11:37 93 H 147/72 H 07/29/20 10:55 95 H 20 160/82 H 97 Diagnostic Findings CXR: neg for acute CT head: neg for acute ECG Rhythm: normal sinus PG Care Time/CCT Total # of Minutes Spent Total Time Spent with Patient: Total time spent is greater than 50% in coordination of care (as documented) at patient's floor/unit and/or counseling patient: Coding Level of Care Code 02291 Initial Inpt Care Lvl 3 Diagnoses ENRRIQUE (acute kidney injury) N17.9 Altered mental status R41.82 Altered mental status type: unspecified Hematuria R31.9 Sleep apnea G47.30 GERD (gastroesophageal reflux disease) K21.9 Depression F32.9 Anxiety F41.9 ADHD F90.9 DVT prophylaxis Z29.9 (1) Altered mental status Altered mental status type: unspecified Qualified Code(s): R41.82 - Altered mental status, unspecified
[2020-07-29 18:24] LABS: Creatine Kinase 335 U/L (39-308); Creatine Kinase MB 3.7 ng/ml (0.5-3.6)
[2020-07-29] MEDS ORDERED: ALBUTEROL HFA 8 GM INHALER INH PRN (19:24)
[2020-07-29] MEDS ORDERED: MAGNESIUM HYDROXIDE SUSP 30 ML UDC PO PRN (19:24)
[2020-07-29] MEDS ORDERED: ACETAMINOPHEN 325 MG TAB PO PRN (19:24)
[2020-07-29] MEDS ORDERED: ONDANSETRON INJ 2 MG/ML 2 ML VIAL IV PRN (19:24)
[2020-07-29] MEDS: SODIUM CHLORIDE 0.9% 1000ML 1,000 ML IV SCH (20:35)
[2020-07-29] MEDS: buPROPion SR 100 MG TABCR PO SCH (20:38)
[2020-07-29] MEDS: PANTOprazole 40 MG TAB PO SCH (20:39)
[2020-07-30] MEDS: SODIUM CHLORIDE 0.9% 1000ML 1,000 ML IV SCH ×4 (03:30→23:52)
--- NOTE | 2020-07-30 06:06 | Electrocardiogram Report ---
Test Reason : Blood Pressure : / mmHG Vent. Rate : 094 BPM Atrial Rate : 094 BPM P-R Int : 118 ms QRS Dur : 096 ms QT Int : 340 ms P-R-T Axes : 064 057 045 degrees QTc Int : 425 ms Normal sinus rhythm Possible Left atrial enlargement Borderline ECG No previous ECGs available Confirmed by Franklin Sanchez ([id number]) on 07/30/2020 6:06:11 AM Referred By: REFERRED SELF Confirmed By:Franklin Sanchez
[2020-07-30] MEDS: buPROPion SR 100 MG TABCR PO SCH ×2 (09:01→20:50)
[2020-07-30] MEDS: PANTOprazole 40 MG TAB PO SCH ×2 (09:01→20:50)
[2020-07-30 09:04] LABS: BUN Creatinine Ratio 12.4 (10-20); Calcium 8.6 mg/dl (8.5-10.1); Creatinine Clr Calc Pharmacy 100.2 ml/min; Est GFR (African American) 87.5; Est GFR (Non-African American) 75.5; Phosphorus 2.6 mg/dl (2.5-4.9)
[2020-07-30 09:09] LABS: Albumin Level 2.9 gm/dl (3.4-5.0); Bilirubin,Total 0.7 mg/dl (0.2-1); Total Protein 6.3 gm/dl (6.4-8.2)
[2020-07-30 10:34] LABS: Potassium 3.7 mmol/L (3.5-5.1)
[2020-07-30 10:37] LABS: Bilirubin Direct 0.3 mg/dl (0-0.2)
--- NOTE | 2020-07-30 11:25 | Hospitalist Progress Note ---
Date of Service July 30, 2020 Assessment & Plan (1) ENRRIQUE (acute kidney injury): Likely prerenal/dehydration. Continue IVF. Repeat BMP. (2) Encephalopathy acute: Etiology uncertain. Infectious? Toxic? Other metabolic? MDMA on tox screen is likely false + 2nd to wellbutrin use. MRI brain negative. Cultures negative. COVID x 2 negative. Lyme negative. Mental status improving - continue to monitor. Repeat labs in am. (3) Polycythemia: Per has had Hb >20 in the past. 19.5 at admission. Repeat CBC in am. Very concerning for PCV. Does have REBECCA but controlled w/ CPAP. Doubt secondary to such. Consider epo level. Consider MAL-2 mutation level. (4) Hematuria: Trace blood; no RBCs. Thus, likely from very, very mild rhabdo. Consider repeat as outpatient. (5) Sleep apnea: CPAP (6) GERD (gastroesophageal reflux disease): continue home meds (7) Depression: continue wellbutrin (8) Anxiety: continue wellbutrin (9) ADHD: Holding dextroamphetamine for now (10) Exposure to COVID-19 virus: Out of abundance of caution, despite negative initial COVID test, I repeated a COVID-19 PCR and again is negative. No fever while here. No pulmonary symptoms. Monitor. (11) DVT prophylaxis: SCDs for now cont IVF updated extensively Admission and Anticipated Discharge Date Admission Date: July 29, 2020 Subjective tele overnight wnl. patient feeling better today. however, c/o blurry vision in right eye (his good eye); has chronic visual loss left eye. also with headache and mild neck discomfort. some mild diarrhea. appetite improved. mentation improved. did have COVID exposure about 1 week ago and felt poorly starting 3-4 days ago. no tick bites. 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 no seizures per . Review of Systems Constitutional: + fatigue; no fever and no chills Respiratory: no cough and no dyspnea Cardiovascular: no chest pain Gastrointestinal: + diarrhea/loose stools; no abdominal pain and no vomiting Musculoskeletal: no myalgia Integumentary: no rash Physical Exam Constitutional: + ill appearing (mild); no acute distress and no altered mental status Eyes: PERRL; no nystagmus ENMT: external ear and nose normal, oropharynx normal Neck: trachea midline, no thyromegaly Respiratory: normal respiratory effort, lungs clear to auscultation Cardiovascular: Rate/Rhythm: regular rate and regular rhythm Heart Sounds: normal S1 and normal S2; no murmur Vessels: posterior tibial pulses present and dorsalis pedis pulses present; no JVD Extremities: no edema Gastrointestinal (Abdomen): normal bowel sounds, soft, nontender, no hepatosplenomegaly Musculoskeletal: no cyanosis or clubbing, extremities motor strength 5/5 Skin: no rashes, warm and dry Neurologic: deep tendon reflexes 2+ bilaterally and moves all extremities; no focal motor deficits Psychiatric: Orientation: alert and oriented x 3 Lymphatic: no cervical lymphadenopathy Results & Data Results & Data ([facility]) Vital Signs (Past 12 Hours) Vital Signs Temp Pulse Pulse Resp BP Pulse Ox 07/30/20 10:57 36.7 C 86 17 136/85 98 07/30/20 08:00 79 07/30/20 07:32 37.0 C 86 20 131/77 96 07/30/20 05:10 144/79 H 07/30/20 03:07 36.7 C 78 20 160/87 H 97 07/30/20 02:00 80 18 97 07/30/20 01:10 78 07/29/20 23:28 83 18 97 Laboratory Results Laboratory Results - last 24 hr 07/29/20 07/29/20 07/29/20 11:25 11:25 11:25 WBC 9.24 RBC 6.71 H Hgb 19.3 H Hct 58.4 H MCV 87.0 MCH 28.8 MCHC 33.0 RDW Std Deviation 51.8 H RDW Coeff of Ron 16.3 H Plt Count 314 MPV 9.6 Immature Gran % (Auto) 0.4 Neut % (Auto) 55.9 Lymph % (Auto) 28.1 [place] % (Auto) 13.6 Eos % (Auto) 1.7 Baso % (Auto) 0.3 Neut # (Auto) 5.15 Lymph # (Auto) 2.60 [place] # (Auto) 1.26 H Eos # (Auto) 0.16 Baso # (Auto) 0.03 Immature Gran # (Auto) 0.04 H ESR 3 PT INR APTT PTT Ratio Sodium 140 Potassium 4.5 Chloride 109 H Carbon Dioxide 24 Anion Gap 7.0 BUN 21 H Creatinine 1.44 H Est Cr Clr Drug Dosing Not Reportable Est GFR ( Amer) 70.9 Est GFR (Non-Af Amer) 61.2 BUN/Creatinine Ratio 14.2 Glucose 107 H Lactate Calcium 9.6 Phosphorus Magnesium TNP Total Bilirubin 0.7 Direct Bilirubin AST 40 H ALT 32 Alkaline Phosphatase 53 Total Creatine Kinase CK-MB (CK-2) CK/CKMB % Calc Troponin I < 0.015 C-Reactive Protein < 0.29 Total Protein 7.6 Albumin 3.4 Globulin 4.2 H Albumin/Globulin Ratio 0.8 L Lipase 315 TSH 1.590 Urine Color Urine Appearance Urine pH Ur Specific [place] Urine Protein Urine Glucose (UA) Urine Ketones Urine Blood Urine Nitrite Urine Bilirubin Urine Urobilinogen Ur Leukocyte Esterase Urine WBC (Auto) Urine RBC (Auto) U Hyaline Cast (Auto) U Epithel Cells (Auto) Urine Bacteria (Auto) Urine Opiates Screen Ur Methadone, Qual Urine Barbiturates Ur Phencyclidine (PCP) U Amphetamin/Meth Scrn Urine MDEA MDMA (Ecstasy) Screen MDMA Urine MDMA U Benzodiazepines Scrn Ur Cocaine Metabolite U Marijuana (THC) Screen Ethyl Alcohol mg/dL Lyme Disease IgG Ab Lyme Disease IgM Ab COVID-19 Eval Order SARS-CoV-2, RNA, NAAT 07/29/20 07/29/20 07/29/20 11:25 11:25 11:25 WBC RBC Hgb Hct MCV MCH MCHC RDW Std Deviation RDW Coeff of Ron Plt Count MPV Immature Gran % (Auto) Neut % (Auto) Lymph % (Auto) [place] % (Auto) Eos % (Auto) Baso % (Auto) Neut # (Auto) Lymph # (Auto) [place] # (Auto) Eos # (Auto) Baso # (Auto) Immature Gran # (Auto) ESR PT Cancelled INR Cancelled APTT Cancelled PTT Ratio Cancelled Sodium Potassium Chloride Carbon Dioxide Anion Gap BUN Creatinine Est Cr Clr Drug Dosing Est GFR ( Amer) Est GFR (Non-Af Amer) BUN/Creatinine Ratio Glucose Lactate Calcium Phosphorus Magnesium Total Bilirubin Direct Bilirubin AST ALT Alkaline Phosphatase Total Creatine Kinase Cancelled CK-MB (CK-2) Cancelled CK/CKMB % Calc Cancelled Troponin I C-Reactive Protein Total Protein Albumin Globulin Albumin/Globulin Ratio Lipase TSH Urine Color Urine Appearance Urine pH Ur Specific [place] Urine Protein Urine Glucose (UA) Urine Ketones Urine Blood Urine Nitrite Urine Bilirubin Urine Urobilinogen Ur Leukocyte Esterase Urine WBC (Auto) Urine RBC (Auto) U Hyaline Cast (Auto) U Epithel Cells (Auto) Urine Bacteria (Auto) Urine Opiates Screen Ur Methadone, Qual Urine Barbiturates Ur Phencyclidine (PCP) U Amphetamin/Meth Scrn Urine MDEA MDMA (Ecstasy) Screen MDMA Urine MDMA U Benzodiazepines Scrn Ur Cocaine Metabolite U Marijuana (THC) Screen Ethyl Alcohol mg/dL Lyme Disease IgG Ab Negative Lyme Disease IgM Ab Negative COVID-19 Eval Order SARS-CoV-2, RNA, NAAT 07/29/20 07/29/20 07/29/20 13:10 13:10 13:24 WBC RBC Hgb Hct MCV MCH MCHC RDW Std Deviation RDW Coeff of Ron Plt Count MPV Immature Gran % (Auto) Neut % (Auto) Lymph % (Auto) [place] % (Auto) Eos % (Auto) Baso % (Auto) Neut # (Auto) Lymph # (Auto) [place] # (Auto) Eos # (Auto) Baso # (Auto) Immature Gran # (Auto) ESR PT 12.3 H INR 1.2 H APTT 24.2 PTT Ratio 0.9 Sodium Potassium Chloride Carbon Dioxide Anion Gap BUN Creatinine Est Cr Clr Drug Dosing Est GFR ( Amer) Est GFR (Non-Af Amer) BUN/Creatinine Ratio Glucose Lactate 0.7 Calcium Phosphorus Magnesium Total Bilirubin Direct Bilirubin AST ALT Alkaline Phosphatase Total Creatine Kinase CK-MB (CK-2) CK/CKMB % Calc Troponin I C-Reactive Protein Total Protein Albumin Globulin Albumin/Globulin Ratio Lipase TSH Urine Color Urine Appearance Urine pH Ur Specific [place] Urine Protein Urine Glucose (UA) Urine Ketones Urine Blood Urine Nitrite Urine Bilirubin Urine Urobilinogen Ur Leukocyte Esterase Urine WBC (Auto) Urine RBC (Auto) U Hyaline Cast (Auto) U Epithel Cells (Auto) Urine Bacteria (Auto) Urine Opiates Screen Ur Methadone, Qual Urine Barbiturates Ur Phencyclidine (PCP) U Amphetamin/Meth Scrn Urine MDEA MDMA (Ecstasy) Screen MDMA Urine MDMA U Benzodiazepines Scrn Ur Cocaine Metabolite U Marijuana (THC) Screen Ethyl Alcohol mg/dL < 3.0 Lyme Disease IgG Ab Lyme Disease IgM Ab COVID-19 Eval Order SARS-CoV-2, RNA, NAAT 11/23/20 11/23/20 11/23/20 15:50 15:50 15:50 WBC RBC Hgb Hct MCV MCH MCHC RDW Std Deviation RDW Coeff of Ron Plt Count MPV Immature Gran % (Auto) Neut % (Auto) Lymph % (Auto) [place] % (Auto) Eos % (Auto) Baso % (Auto) Neut # (Auto) Lymph # (Auto) [place] # (Auto) Eos # (Auto) Baso # (Auto) Immature Gran # (Auto) ESR PT INR APTT PTT Ratio Sodium Potassium Chloride Carbon Dioxide Anion Gap BUN Creatinine Est Cr Clr Drug Dosing Est GFR ( Amer) Est GFR (Non-Af Amer) BUN/Creatinine Ratio Glucose Lactate Calcium Phosphorus Magnesium Total Bilirubin Direct Bilirubin AST ALT Alkaline Phosphatase Total Creatine Kinase CK-MB (CK-2) CK/CKMB % Calc Troponin I C-Reactive Protein Total Protein Albumin Globulin Albumin/Globulin Ratio Lipase TSH Urine Color Dark Yellow Urine Appearance Clear Urine pH 6.5 Ur Specific [place] 1.025 Urine Protein Negative Urine Glucose (UA) Negative Urine Ketones Negative Urine Blood Trace H Urine Nitrite Negative Urine Bilirubin Negative Urine Urobilinogen Negative Ur Leukocyte Esterase Negative Urine WBC (Auto) 1-5 Urine RBC (Auto) 0-4 U Hyaline Cast (Auto) 0 U Epithel Cells (Auto) 0-5 Urine Bacteria (Auto) Negative Urine Opiates Screen Neg Ur Methadone, Qual Neg Urine Barbiturates Neg Ur Phencyclidine (PCP) Neg U Amphetamin/Meth Scrn Neg Urine MDEA Pending MDMA (Ecstasy) Screen Pos H MDMA Pending Urine MDMA Pending U Benzodiazepines Scrn Neg Ur Cocaine Metabolite Neg U Marijuana (THC) Screen Neg Ethyl Alcohol mg/dL Lyme Disease IgG Ab Lyme Disease IgM Ab COVID-19 Eval Order SARS-CoV-2, RNA, NAAT 07/29/20 07/29/20 07/29/20 17:44 Unknown Unknown WBC RBC Hgb Hct MCV MCH MCHC RDW Std Deviation RDW Coeff of Ron Plt Count MPV Immature Gran % (Auto) Neut % (Auto) Lymph % (Auto) [place] % (Auto) Eos % (Auto) Baso % (Auto) Neut # (Auto) Lymph # (Auto) [place] # (Auto) Eos # (Auto) Baso # (Auto) Immature Gran # (Auto) ESR PT INR APTT PTT Ratio Sodium Potassium Chloride Carbon Dioxide Anion Gap BUN Creatinine Est Cr Clr Drug Dosing Est GFR ( Amer) Est GFR (Non-Af Amer) BUN/Creatinine Ratio Glucose Lactate Calcium Phosphorus Magnesium Total Bilirubin Direct Bilirubin AST ALT Alkaline Phosphatase Total Creatine Kinase 335 H CK-MB (CK-2) 3.7 H CK/CKMB % Calc Troponin I C-Reactive Protein Total Protein Albumin Globulin Albumin/Globulin Ratio Lipase TSH Urine Color Urine Appearance Urine pH Ur Specific [place] Urine Protein Urine Glucose (UA) Urine Ketones Urine Blood Urine Nitrite Urine Bilirubin Urine Urobilinogen Ur Leukocyte Esterase Urine WBC (Auto) Urine RBC (Auto) U Hyaline Cast (Auto) U Epithel Cells (Auto) Urine Bacteria (Auto) Urine Opiates Screen Ur Methadone, Qual Urine Barbiturates Ur Phencyclidine (PCP) U Amphetamin/Meth Scrn Urine MDEA MDMA (Ecstasy) Screen MDMA Urine MDMA U Benzodiazepines Scrn Ur Cocaine Metabolite U Marijuana (THC) Screen Ethyl Alcohol mg/dL Lyme Disease IgG Ab Lyme Disease IgM Ab COVID-19 [facility] SARS-CoV-2, RNA, NAAT NEGATIVE 07/30/20 07/30/20 07/30/20 07:22 07:22 09:39 WBC RBC Hgb Hct MCV MCH MCHC RDW Std Deviation RDW Coeff of Ron Plt Count MPV Immature Gran % (Auto) Neut % (Auto) Lymph % (Auto) [place] % (Auto) Eos % (Auto) Baso % (Auto) Neut # (Auto) Lymph # (Auto) [place] # (Auto) Eos # (Auto) Baso # (Auto) Immature Gran # (Auto) ESR PT INR APTT PTT Ratio Sodium 140 Potassium 3.7 D Chloride 111 H Carbon Dioxide 24 Anion Gap 5.0 BUN 15 Creatinine 1.21 Est Cr Clr Drug Dosing 100.2 Est GFR ( Amer) 87.5 Est GFR (Non-Af Amer) 75.5 BUN/Creatinine Ratio 12.4 Glucose 88 Lactate Calcium 8.6 Phosphorus 2.6 Magnesium Total Bilirubin 0.7 Direct Bilirubin 0.3 H AST 35 ALT 38 Alkaline Phosphatase 39 L Total Creatine Kinase Cancelled 229 CK-MB (CK-2) CK/CKMB % Calc Troponin I C-Reactive Protein Total Protein 6.3 L Albumin 2.9 L Globulin Albumin/Globulin Ratio Lipase TSH Urine Color Urine Appearance Urine pH Ur Specific [place] Urine Protein Urine Glucose (UA) Urine Ketones Urine Blood Urine Nitrite Urine Bilirubin Urine Urobilinogen Ur Leukocyte Esterase Urine WBC (Auto) Urine RBC (Auto) U Hyaline Cast (Auto) U Epithel Cells (Auto) Urine Bacteria (Auto) Urine Opiates Screen Ur Methadone, Qual Urine Barbiturates Ur Phencyclidine (PCP) U Amphetamin/Meth Scrn Urine MDEA MDMA (Ecstasy) Screen MDMA Urine MDMA U Benzodiazepines Scrn Ur Cocaine Metabolite U Marijuana (THC) Screen Ethyl Alcohol mg/dL Lyme Disease IgG Ab Lyme Disease IgM Ab COVID-19 Eval Order SARS-CoV-2, RNA, NAAT MRI brain neg blood/urine cx's neg PG Care Time/CCT Total # of Minutes Spent Total Time Spent with Patient: Total time spent is greater than 50% in coordination of care (as documented) at patient's floor/unit and/or counseling patient: Coding Level of Care Code 88481 Subseq Hosp Care Lvl 3 Diagnoses ENRRIQUE (acute kidney injury) N17.9 Encephalopathy acute G93.40 Polycythemia D75.1 Hematuria R31.9 Sleep apnea G47.30 GERD (gastroesophageal reflux disease) K21.9 Depression F32.9 Anxiety F41.9 ADHD F90.9 Exposure to COVID-19 virus Z20.828 DVT prophylaxis Z29.9
[2020-07-30 13:12] LABS: Influenza A virus by PCR Negative (Negative); Influenza B virus by PCR Negative (Negative)
[2020-07-30] MEDS ORDERED: LORazepam 0.5 MG TAB PO STA (16:13)
[2020-07-30] MEDS ORDERED: GADOBUTROL 65ML VIAL IV ONE (17:07)
--- NOTE | 2020-07-30 17:37 | Magnetic Resonance Report ---
Brain MRI WITH AND WITHOUT CONTRAST HISTORY: visual loss/changes, altered mental status; eval CVA, etc TECHNIQUE: Multiplanar multisequence MRI of the brain was performed both before and after the intrave nous administration of contrast. COMPARISON STUDY: Head CT 07/26/2020. FINDINGS: There are no areas of restricted diffusion to suggest acute infarction. The midline structu res are intact. Small retention cyst within the left maxillary sinus. Evidence for bilateral lens rep lacement. The mastoid air cells are clear. The ventricles and sulci are within normal limits for age. There is no mass, hematoma, midline shift. The major vascular flow-voids at the skull base are well maintained. Postcontrast sequences show no areas of abnormal enhancement. IMPRESSION: No acute intracranial abnormality. ACT 112: Negative or not required by law. Electronically signed by: Harvey Bro M.D. 07/30/2020 5:35 PM
[2020-07-31] MEDS: SODIUM CHLORIDE 0.9% 1000ML 1,000 ML IV SCH (05:52)
[2020-07-31] MEDS: PANTOprazole 40 MG TAB PO SCH (07:42)
[2020-07-31] MEDS: buPROPion SR 100 MG TABCR PO SCH (07:42)
[2020-07-31 08:45] LABS: Basophils # (auto) 0.01 K/uL (0-0.2); Basophils % (auto) 0.1 %; Eosinophils # (auto) 0.17 K/uL (0-0.5); Eosinophils % (auto) 2.2 %; Hematocrit (blood only) 54.3 % (42-52); Immature Granulocytes # (auto) 0.02 K/uL (0.00-0.02); Immature Granulocytes % (auto) 0.3 %; Lymphocytes # (auto) 1.52 K/uL (1.2-3.4); Lymphocytes % (auto) 19.3 %; Mean Corpuscular Hemoglobin 28.9 pg (25-34); Mean Corpuscular Hgb Conc 33.1 g/dL (32-36); Mean Corpuscular Volume 87.2 fL (80-100); Mean Platelet Volume 9.7 fL (7.4-10.4); Monocytes # (auto) 0.68 K/uL (0.11-0.59); Monocytes % (auto) 8.7 %; Neutrophils # (auto) 5.46 K/uL (1.4-6.5); Neutrophils % (auto) 69.4 %; Platelet Count 279 K/uL (130-400); RDW Coefficient of Variation 16.2 % (11.5-14.5); RDW Standard Deviation 51.2 fL (36.4-46.3); Red Blood Count 6.23 M/uL (4.7-6.1); White Blood Count 7.86 K/uL (4.8-10.8)
[2020-07-31 09:26] LABS: BUN Creatinine Ratio 11.1 (10-20); Calcium 8.8 mg/dl (8.5-10.1); Creatinine Clr Calc Pharmacy 111.4 ml/min; Est GFR (African American) 100.4; Est GFR (Non-African American) 86.6; Potassium 3.9 mmol/L (3.5-5.1)
[2020-07-31] MEDS ORDERED: LORazepam 0.5 MG TAB PO STA (10:07)
[2020-07-31] MEDS ORDERED: GADOBUTROL 65ML VIAL IV ONE ×2 (12:26→13:35)
[2020-07-31] MEDS ORDERED: LORazepam 0.5 MG TAB ONE (12:26)
--- NOTE | 2020-07-31 13:45 | Magnetic Resonance Report ---
NECK MRA HISTORY: Altered mental status possible cerebrovascular accident TECHNIQUE: Affx-xj-spcepa and gadolinium-enhanced MRA of the neck was performed both before and after the intravenous administration of contrast. All measurements were calculated based on NASCET criteri a. The patient received 9.5 cc of intravenous Gadavist COMPARISON STUDY: None. FINDINGS: The aortic arch and proximal great vessels are widely patent. There is no significant sten osis, occlusion, or dissection identified within the bilateral common carotid, internal carotid, or v ertebral arteries. IMPRESSION: No significant stenosis, occlusion, or dissection identified within the carotid or vertebral arteries . ACT 112: Negative or not required by law. Electronically signed by: Wilner Parikh M.D. 07/31/2020 1:43 PM
--- NOTE | 2020-07-31 13:46 | Magnetic Resonance Report ---
MRA OF THE INTRACRANIAL CIRCULATION WITHOUT CONTRAST CLINICAL HISTORY: Confusion. Altered mental status. COMPARISON STUDY: Head CT July 29, 2020. MRI of the brain July 30, 2020. TECHNIQUE: Utilizing a 1.5 Belle magnet and 3-D [id number] technique, unenhanced MRA of the intra cranial circulation was obtained. FINDINGS: The bilateral M1, M2, A1 and A2 segments are patent. There is no intracranial aneurysm. The re is no dissection within the intracranial vessels. No central vessel occlusion is noted. No stenosi s is identified on this examination. Anterior communicating artery is present. Posterior circulation is intact. IMPRESSION: Normal MRA of the head. ACT 112: Negative or not required by law. Electronically signed by: Chance Reid M.D. 07/31/2020 1:44 PM
--- NOTE | 2020-07-31 15:40 | Discharge Summary ---
Date of Service date of admission - July 29, 2020 date of discharge - July 31, 2020 Admission HPI Per Admitting Provider 40 y/o M who came to the ED for worsening confusion and sweating. Pt states that he has felt intermittent confusion for the last 3 days. He has been very hot and sweating, but no fevers. This was worse last night when he was found crawling around him bedroom looking for keys in the middle of the night. His had to talk him out of doing this and then when asked about it this morning, pt did not remember the episode. states that pt was not making sense and showing word salad this morning. Pt states he has been having burning with urination and very dark urine for a few days. describes urine as tea colored. Pt states he also noted that he could not use his fingers appropriately while texting "they wouldn't push the buttons". No inability to use extremities, but diminished fine motor with his hands overall. Pt states he feels incredibly fatigued the last few days. 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 Pt denies fever, SOB, chest pain, abd pain, n/v, LE pain or swelling. No coughing. Pt has noted mild diarrhea the last few days. 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 He states that he gets about 3-4 hours of sleep a night, but this is unchanged for the last year, especially with both he and his working as well as both attending [employer] school. They also have a 2 year old who doesn't really sleep much. Pt works out regularly, mostly heavy lifting, which he does 5 days a week and describes as intense workouts. No cardio workouts or HIIT workouts. He does drink water, but states that his intake "could be better". He does drink a lot of diet ice tea during the day and a diet Mountain Dew maybe once a day. states that pt is interacting like usual now s/p IVF. No further confusion or word salad. states pt's color is usual for him--generally more cleary. Pt takes dextropmphetamine and buproprion, but these are not new medications and no dosage changes. He and both deny increased use, either accidental due to work schedules or intentional. Denies supplement or herbal use. Denies energy drink use. Caffeine is noted as above. Principal Diagnosis 1. encephalopathy - exact etiology uncertain but resolved. 2. polycythemia - work-up in progress. Discharge Exam Constitutional well developed and well nourished; no acute distress and no altered mental status ENMT external ear and nose normal, oropharynx normal Respiratory normal respiratory effort, lungs clear to auscultation Cardiovascular Rate/Rhythm: regular rate and regular rhythm Heart Sounds: normal S1 and normal S2; no murmur Vessels: posterior tibial pulses present and dorsalis pedis pulses present; no JVD Extremities: no edema Gastrointestinal (Abdomen) normal bowel sounds, soft, nontender, no hepatosplenomegaly Skin no rashes, warm and dry Neurologic deep tendon reflexes 2+ bilaterally and moves all extremities; no focal motor deficits Psychiatric Orientation: alert and oriented x 3 Discharge Data Allergies Allergy/AdvReac Type Severity Reaction Status Date / Time iodine Allergy Severe Anaphylaxis Verified 08/22/18 09:30 codeine Allergy Intermediate Rash Verified 08/22/18 09:30 Ordered Studies 07/29/20 12:06 CT head/brain wo con Stat - no acute intracranial abnormality. 07/30/20 13:51 MR brain wo/w con Routine - no acute or chronic intracranial abnormality. 07/31/20 10:06 MR angio head wo con Routine - normal MRA head. MR angio neck wo/w con Routine IMPRESSION: No significant stenosis, occlusion, or dissection identified within the carotid or vertebral arteries. COVID testing NEGATIVE x 2 Hospital Course (1) Encephalopathy acute: Exact etiology uncertain despite very large work-up. Unidentified transient infectious process? Toxic cause? Other metabolic? MDMA on tox screen was likely falsely positive 2nd to wellbutrin use. MRI brain negative. MRA head/neck normal. CT head negative. Blood and urine cultures negative. COVID x 2 negative. Lyme screen negative. Telemetry failed to show any arrhythmia. Although he takes wellbutrin he has been on such for many years and thus I doubt he had any seizure. Additionally his never noted any seizure activity. Mental status improved with supportive care measures and time. I dispatched an anaplasmosis DNA at time of discharge and gave him a 14-day course of doxycycline while awaiting this lab. I checked him for this tick-borne infection due to the infectious symptoms he had had (sweats, diarrhea, etc). (2) ENRRIQUE (acute kidney injury): Likely prerenal/dehydration as cause. Peak Cr 1.4, improving to 1 at discharge s/p IV fluids. Eating/drinking well at discharge. (3) Visual disturbance: Patient c/o right eye visual disturbance/blurry vision during his stay. 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 MRI brain failed to show any abnormalities in the occipital lobe. Visual garcía were full by direct confrontation on physical exam. It is possible that his polycythemia contributed to his visual disturbance as his hemoglobin was 19.3 at presentation. I recommended that he see his ophthamologist reena after discharge for eye exam to exclude any retinal issues, etc. (4) Polycythemia: Per has had Hb >20 in the past. Hemoglobin was 19.3 at admission. Only improved to 18 after 48 hours of IV hydration. Very concerning for PCV. Does have REBECCA but controlled w/ CPAP. Doubt secondary to such. He will obtain a erythropoetin level shortly after discharge as well as MAL-2 mutation to exclude PCV. I recommended once daily aspirin 81mg until work-up is complete. He will likely need outpatient referral to hematology. (5) Hematuria: Trace blood on u/a; no RBCs on microscopy. Thus, likely from very, very mild rhabdomyolysis. Consider repeat u/a as outpatient. (6) Sleep apnea: Continue CPAP at home. (7) GERD (gastroesophageal reflux disease): continue home meds (8) Depression: continue wellbutrin (9) Anxiety: continue wellbutrin (10) ADHD: Continue dextroamphetamine (has been on such for several years) and wellbutrin (11) Exposure to COVID-19 virus: Out of abundance of caution, despite negative initial COVID test, I repeated a COVID-19 PCR and again it was negative. No fever while here. No pulmonary symptoms. Total Time Total Time Spent Total Time Spent (In Minutes): 45 Total Time Includes: Examination of the Patient, Discharge Planning and Medication Reconciliation Discharge Plan Discharge Items Patient Disposition: Home - Self-Care Reason For Visit: CONFUSION Discharge Diagnosis: Confusion/illness - resolved; exact cause uncertain. No evidence of pneumonia, COVID-19 infection, urinary infection, stroke, brain aneurysm, lyme disease, etc. Concern for polycythemia (elevated red cells in the blood) but this appears to be chronic. Activity: As commented below Activity Comment: gradually increase your activities over the next 1-2 days Driving/Machine Use: Resume 1 day after discharge Non-emergency contact: Primary Care Provider Call non-emergency contact if: you have any medication questions, your symptoms worsen and you have a fever Follow-up/Referrals: Dawood Jones [Primary Care Provider] - 08/08/20 3:00 pm (You have been scheduled for a follow up appt on August 08, at 3pm. This visit will be an E Visit. Please call the office at [phone] with any questions regarding this appt. ) Diet: Regular Ambulatory Orders: ISAIAS JAK2 Mut Exon 12 Molecular (Routine) Timeframe: 20200802 Location: Determined by Patient Ordered By: Blake Llanos Erythropoietin (Routine) Timeframe: 20200802 Location: None Selected Ordered By: Blake Llanos Addtl Attending Provider Instructions: Darrick You were seen and treated for confusion noted at home. It was suspected you had an infection but none was found. There was no evidence of pneumonia, COVID-19 (testing x 2 were negative), influenza, urinary infection, lyme disease, etc. Your MRI brain was normal. Your MRA head/neck were both normal. Telemetry did not show abnormal hearth rhythms. Blood cultures were negative. We sent off blood work for anaplasmosis (tickborne illness) but I am not highly suspicious you have this. The exact cause of your confusion & illness is uncertain. What stood out during your stay was that your labs suggested dehydration AND your CBC showed a very high hemoglobin level. Lastly, a seizure is theoretically possible with your wellbutrin use but would be unusual given that you have been taking it for several years. Recommendations - 1. if you develop fever, chills, cough, loss of taste/smell, sore throat, body aches - any other symptoms of COVID-19 - please obtain repeat testing. 2. I have called in doxycycline for you. if your anaplasmosis testing returns positive please obtain the prescription and start on it. 3. please report to [facility] this Wednesday am for blood work to rule out polycythemia. Please bring the lab slips with you. 4. you can resume driving tomorrow if feeling well and back to normal. 5. you can resume your previous medications.. Follow-up - see separate section Return to [facility] if - * you develop symptoms of COVID-19 * you have fever over 100 degrees * you have change in thinking / confusion * you have seizures * you have chest pain or shortness of breath * any other concerns Feel better and happy ThanksBlake soto Pending Studies at Discharge: Yes Studies:: anaplasmosis test Stand-Alone Forms: My [facility], Smoking Cessation Medications and DC Order Prescriptions: New doxycycline hyclate 100 mg tablet 100 mg PO BID 14 Days Qty: 28 RF: 0 aspirin 81 mg tablet,delayed release (DR/EC) 81 mg PO DAILY Qty: 90 RF: 3 Continued omeprazole magnesium [Prilosec OTC] 20 mg Tablet,Delayed Release (Dr/Ec) 20 mg PO BID RF: 0 albuterol sulfate 90 mcg/actuation Hfa Aerosol Inhaler 1 puff INHALATION QID PRN (Reason: SOB) RF: 0 dextroamphetamine 15 mg capsule, extended release 30 mg PO BID RF: 0 bupropion HCl 200 mg tablet sustained-release 12 hr 200 mg PO BID RF: 0 Discharge Orders: Discharge Order (Routine); Ordered 07/31/20 Ordered By: Blake Llanos Admission Data Admit Date/Time: 07/29/20 17:05 Attending Provider: Blake Llanos Admit Provider: Skyla Fitzgerald Primary Care Provider: Dawood Jones Other Providers: Blake Rubio Other Interventions: Discharge Summary Assessment (RN) Last Done: 07/31/20 15:34 Coding Level of Care Code D/C Day Management >30 mins Diagnoses Encephalopathy acute G93.40 ENRRIQUE (acute kidney injury) N17.9 Visual disturbance H53.9 Polycythemia D75.1 Hematuria R31.9 Sleep apnea G47.30 GERD (gastroesophageal reflux disease) K21.9 Depression F32.9 Anxiety F41.9 ADHD F90.9 Exposure to COVID-19 virus Z20.828
[2020-08-03 21:21] LABS: MDA negative; MDEA negative; MDMA (Ecstasy) Urine, Confirm negative
== END 2020-07-31 17:18 | disposition home or self-care (01) | DRG 71 ==
LOC: ED 10:49 → 2N 17:05 → SUATTDRO 17:05 → 2N 18:49

== ENCOUNTER 2022-08-10 19:01 | Inpatient (IN) ==
[2022-08-10] MEDS ORDERED: CALCIUM GLUCONATE 1000 MG/60 ML NSS IV ONE (19:18)
[2022-08-10] MEDS ORDERED: CALCIUM GLUCONATE 10% 1,000 MG in DEXTROSE 5% 50 ML IV STA (19:20)
[2022-08-10] MEDS ORDERED: STAT IV STA (19:20)
[2022-08-10] MEDS ORDERED: SODIUM CHLORIDE 0.9% 1000ML 1,000 ML IV ONE ×3 (19:22→20:35)
[2022-08-10 19:28] LABS: iSTAT Creatinine 2.8 mg/dl (0.6-1.3); iSTAT Hemoglobin 21.4 g/dl (14.0-18.0); iSTAT Ionized Calcium 0.77 mmol/l (1.12-1.32); iSTAT Potassium 6.2 mmol/L (3.3-5.0)
[2022-08-10 19:31] LABS: Basophils # (auto) 0.08 K/uL (0-0.2); Basophils % (auto) 0.5 %; Eosinophils # (auto) 0.01 K/uL (0-0.50); Eosinophils % (auto) 0.1 %; Hematocrit (blood only) 58.3 % (40.1-51.0); Hemoglobin 19.9 g/dl (14.0-18.0); Immature Granulocytes % (auto) 0.6 %; Lymphocytes # (auto) 2.33 K/uL (1.2-3.4); Lymphocytes % (auto) 13.8 %; Mean Corpuscular Hemoglobin 28.5 pg (25.0-34.0); Mean Corpuscular Hgb Conc 34.1 g/dL (32.0-36.0); Mean Corpuscular Volume 83.5 fL (80.0-100.0); Mean Platelet Volume 9.3 fL (9.4-12.4); Monocytes % (auto) 8.3 %; Neutrophils # (auto) 12.99 K/uL (1.4-6.5); Neutrophils % (auto) 76.7 %; Platelet Count 510 K/uL (130-400); RDW Coefficient of Variation 18.7 % (11.5-14.5); RDW Standard Deviation 50.4 fL (36.4-46.3); Red Blood Count 6.98 M/uL (4.63-6.08); White Blood Count 16.91 K/ul (4.8-10.8)
--- NOTE | 2022-08-10 19:40 | Emergency Department Note ---
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 Patient reports he started having headache approximately 1 hour ago. He states he started vomiting and feeling near syncopal. Patient states his vomitus looked like it had some coff ee-ground emesis in it. Reports no hematemesis. No chest pain or difficulty breathing. No fever. Home Medications Medication Instructions Recorded Confirmed Type albuterol sulfate 90 mcg/actuation 1 puff inhalation QID PRN SOB 08/09/18 07/29/20 History aerosol inhaler omeprazole magnesium 20 mg 20 mg PO BID 08/09/18 07/29/20 History tablet,delayed release (Prilosec OTC) bupropion HCl 200 mg tablet,12 hr 200 mg PO BID 07/29/20 07/29/20 History sustained-release dextroamphetamine sulfate 15 mg 30 mg PO BID 07/29/20 07/29/20 History capsule,extended release aspirin 81 mg tablet,delayed 81 mg PO DAILY #90 tabs 07/31/20 Rx release Allergies Allergy/AdvReac Type Severity Reaction Status Date / Time iodine Allergy Severe Anaphylaxis Verified 08/22/18 09:30 codeine Allergy Intermediate Rash Verified 08/22/18 09:30 Past Med/Surg History Medical History (Updated 08/11/22 @ 02:03 by Mani De La Cruz) Asthma Congenital glaucoma Obesity (BMI 30.0-34.9) Surgical History H/O wisdom tooth extraction History of adenoidectomy History of colonoscopy History of esophagogastroduodenoscopy (EGD) History of tonsillectomy Family History Denies family history of Myocardial infarction Stroke Social History Smoking Status: Never smoker Second Hand Exposure: No; Hx Alcohol Use: Yes Alcohol type: beer, wine and hard liquor Alcohol Intake Frequency Comment: 2-3 beers or drinks a week Hx Substance Use: No Preferred Language: Slovenian Communication Ability: Effective [employer] Required: No Beliefs That Will Affect Care: None Current Living Situation: Spouse and Family Current Living Situation Comment: Pt lives at home with spouse and son Other Information That Helps Us Care for You: No Feels Safe at Home: Yes Safety Concerns: Feels Safe At This Time Assistive Devices: Glasses Review of Systems A total of 10 systems reviewed and were otherwise negative Physical Exam Vital Signs Vital Signs - 24 hr 08/10/22 19:22 08/10/22 19:49 08/10/22 19:56 Temperature 36.9 C 36.9 C Temperature Source Oral Oral Pulse Rate 117 H Pulse Rate [Apical] 126 H 122 H Pulse Rhythm Regular Pulse Rhythm [Apical] Regular Regular Pulse Strength Normal Pulse Strength [Apical] Normal Respiratory Rate 30 H 28 H 38 H Respiratory Effort / Characteristics Labored Respiratory Depth Deep Deep Respiratory Pattern Rapid/Deep Blood Pressure 138/60 Blood Pressure [Right Arm] 126/70 126/70 Blood Pressure Mean 86 Blood Pressure Mean [Right Arm] 88 88 Pulse Oximetry 99 97 96 Oxygen Delivery Method Room Air Room Air Sepsis Recent Fever Within 48 Hours No Sepsis New/Unexplained Change in Mental Status No Sepsis Action Taken by Nursing Physician Notified 08/10/22 19:56 08/10/22 20:41 08/10/22 21:19 Temperature Temperature Source Pulse Rate Pulse Rate [Apical] 115 H 116 H Pulse Rhythm Pulse Rhythm [Apical] Pulse Strength Pulse Strength [Apical] Respiratory Rate 32 H 34 H Respiratory Effort / Characteristics Respiratory Depth Deep Respiratory Pattern Blood Pressure Blood Pressure [Right Arm] 112/71 108/63 Blood Pressure Mean Blood Pressure Mean [Right Arm] 84 78 Pulse Oximetry 96 97 95 Oxygen Delivery Method Room Air Room Air Sepsis Recent Fever Within 48 Hours Sepsis New/Unexplained Change in Mental Status Sepsis Action Taken by Nursing Physical Exam GENERAL: Patient is ill-appearing. HENT: Exam performed. - Head: Normocephalic and atraumatic. EYES: Conjunctivae and EOM are normal. Right eye exhibits no discharge. Left eye exhibits no discharge. No scleral icterus. NECK: Normal range of motion. No JVD present. CV: Tachycardic rate, regular rhythm, normal heart sounds and intact distal pulses. There is no peripheral edema. Palpable radial pulses bue. PULM/CHEST: Effort normal and breath sounds normal. No respiratory distress. No stridor. He has no wheezes. He has no rales. ABD: The abdomen is soft. There is no tenderness. NEURO: He is alert and oriented to person, place, and time. He has normal strength. No cranial nerve deficit or sensory deficit. GCS eye subscore is 4. GCS verbal subscore is 5. GCS motor subscore is 6. Cerebellar tests wnl. SKIN: Diaphoretic. PSYCH: He has a normal mood and affect. Behavior is normal. Judgment and thought content normal. Course Course 1912: The patient was evaluated in room B4. A complete history and physical exam was performed Cardiac monitoring: An order was placed for continuous cardiac monitoring. The monitor shows a rate of 120 with sinus tachycardia rhythm Called to bedside by nursing. EKG showed peaked T waves. I-STAT was performed. Patient's glucose on the i-STAT was 147. Potassium on the i-STAT was 6.2. Creatinine 2.8. Patient will be treated with calcium gluconate 1 g IV piggyback given the patient's potassium is 6.2 and peaked T waves on EKG. Patient reporting a anaphylactic reaction to iodine. Patient will be taken for stat CT of the head and CT abdomen pelvis without contrast. 2054: Patient remains tachycardic. His heart rate is improved with IV fluids. Chest x-ray CT of the head and CT of the abdomen pelvis are within normal limits. CT of the head was conducted within 6 hours of headache onset effectively ruling out SAH. Labs show a white blood cell count of 16.91. Hem oglobin 19.9, patient does have a history of polycythemia. Coags are within normal limits. Potassium 6.5. Creatinine 2.64. Lactic acid 3.7. Ionized calcium 0.77. Total bilirubin 1.8 direct bilirubin 0.9. Troponin 61.1. Patient reporting no chest pain or difficulty breathing. Given the patient's leukocytosis and lactic acidemia the patient will be treated for any bacterial infection with cefepime 2 g IV piggyback. Influenza is still a very large possibility and is still pending as well as COVID swab. Discussed the case with [facility] hospitalist Dr. Duarte who also recommends obtaining ABG. Medical alcohol and drug screen are pending. Dr. Duarte team will admit the patient to their service. Administered Medications Lactated Ringer's (Lr) 1,000 mls @ 125 mls/hr IV .Q8H MATHEW Stop: 09/09/22 23:18 Last Admin: 08/11/22 00:29 Dose: 125 mls/hr Documented By: MARICRUZ Discontinued Medications Calcium Gluconate (Calcium Gluconate 1000 Mg/60 Ml Nss) Confirm Administered Dos e 1,000 mg IV .STK-MED ONE Stop: 08/10/22 19:19 Last Admin: 08/10/22 20:09 Dose: 1,000 mg Documented By: LESLY Dextrose (Dextrose 50% 50 Ml Syringe) 50 ml IV NOW STA Stop: 08/10/22 20:45 Last Admin: 08/10/22 21:07 Dose: 50 ml Documented By: LESLY Sodium Chloride (Nss 1000ml) 1,000 mls @ 999 mls/hr IV .Q1H1M ONE Stop: 08/10/22 20:22 Last Infusion: 08/10/22 20:26 Dose: 0 mls/hr Documented By: Admin: 08/10/22 19:26 Dose: 999 mls/hr Documented By: LESLY Sodium Chloride (Nss 1000ml) 1,000 mls @ 999 mls/hr IV .Q1H1M ONE Stop: 08/10/22 21:29 Last Infusion: 08/10/22 21:05 Dose: 999 mls/hr Documented By: Admin: 08/10/22 20:38 Dose: 999 mls/hr Documented By: LESLY Sodium Chloride (Nss 1000ml) 1,000 mls @ 999 mls/hr IV .Q1H1M ONE Stop: 08/10/22 21:35 Last Infusion: 08/10/22 22:13 Dose: 0 mls/hr Documented By: Admin: 08/10/22 21:08 Dose: 999 mls/hr Documented By: LESLY Cefepime HCl (Maxipime) 2,000 mg in 20 mls @ 5 mls/min IV NOW STA; Protocol Stop: 08/10/22 20:57 Last Admin: 08/10/22 21:08 Dose: 5 mls/min Documented By: LESLY Sodium Chloride (Nss 1000ml) 500 mls @ 999 mls/hr IV .Q31M ONE Stop: 08/10/22 21:31 Last Infusion: 08/10/22 22:14 Dose: 0 mls/hr Documented By: Admin: 08/10/22 21:06 Dose: 999 mls/hr Documented By: LESLY Sodium Chloride (Nss 1000ml) 1,000 mls @ 125 mls/hr IV .Q8H MATHEW Stop: 09/09/22 21:14 Last Admin: 08/10/22 21:06 Dose: 125 mls/hr Documented By: LESLY Insulin Human Regular (Novolin-R Insulin Per Unit Charge) 10 units IV ONE ONE Stop: 08/10/22 21:01 Last Admin: 08/10/22 21:07 Dose: 10 units Documented By: LESLY Co-signed By: NICKI Miscellaneous (Stat Iv) 1 each N/A NOW STA Stop: 08/10/22 19:21 Last Admin: 08/10/22 20:10 Dose: 1 each Documented By: LESLY Ondansetron HCl (Ondansetron Inj 2 Mg/Ml 2 Ml Vial) 4 mg IV NOW STA Stop: 08/10/22 20:45 Last Admin: 08/10/22 21:08 Dose: 4 mg Documented By: LESLY Medical Decision Making Laboratory Data Result diagrams: 08/10/22 19:07 08/10/22 23:40 Lab Results 08/10/22 08/10/22 08/10/22 Range/Units 19:07 19:07 19:07 WBC 16.91 H (4.8-10.8) K/ul RBC 6.98 H (4.63-6.08) M/uL Hgb 19.9 H (14.0-18.0) g/dl POC Hgb (14.0-18.0) g/dl Hct 58.3 H (40.1-51.0) % POC Hct (42-52) % MCV 83.5 (80.0-100.0) fL MCH 28.5 (25.0-34.0) pg MCHC 34.1 (32.0-36.0) g/dL RDW Std Deviation 50.4 H (36.4-46.3) fL RDW Coeff of Ron 18.7 H (11.5-14.5) % Plt Count 510 H (130-400) K/uL MPV 9.3 L (9.4-12.4) fL Immature Gran % (Auto) 0.6 % Neut % (Auto) 76.7 % Lymph % (Auto) 13.8 % [place] % (Auto) 8.3 % Eos % (Auto) 0.1 % Baso % (Auto) 0.5 % Neut # (Auto) 12.99 H (1.4-6.5) K/uL Lymph # (Auto) 2.33 (1.2-3.4) K/uL [place] # (Auto) 1.40 H (0.24-0.82) K/uL Eos # (Auto) 0.01 (0-0.50) K/uL Baso # (Auto) 0.08 (0-0.2) K/uL Immature Gran # (Auto) 0.10 H (0.00-0.02) K/uL ESR (0-15) mm/hr PT (9.0-12.0) Seconds INR (0.9-1.1) APTT (21.0-31.0) Seconds PTT Ratio VBG pH (7.36-7.41) VBG pCO2 (38-50) mmHg VBG pO2 mmHg VBG HCO3 mmol/L VBG O2 Saturation % VBG Base Excess mEq/L POC Sodium (135-144) mmol/L Sodium 138 (136-145) mmol/L POC Potassium (3.3-5.0) mmol/L Potassium 6.5 H* (3.5-5.1) mmol/L POC Chloride (101-112) mmol/L Chloride 101 (98-107) mmol/L Carbon Dioxide 21 (21-32) mmol/L POC Total CO2 (24-31) mmol/L Anion Gap 16 H (3-11) POC Anion Gap (16-25) mmol/L POC BUN (7-18) mg/dl BUN 33 H (6-23) mg/dl Creatinine 2.64 H (0.6-1.4) mg/dl POC Creatinine (0.6-1.3) mg/dl Est Cr Clr Drug Dosing 40.8 ml/min Est GFR ( Amer) 33.6 ml/min Est GFR (Non-Af Amer) 29.0 ml/min BUN/Creatinine Ratio 12.5 (10-20) Glucose 142 H (70-99(Fasting)) mg/dl POC Glucose (other) (70-99) mg/dl Lactate (0.4-2.0) mmol/L Calcium 10.1 (8.5-10.1) mg/dl POC Ioniz Calcium Avelina (1.12-1.32) mmol/l Magnesium 1.9 (1.7-2.4) mg/dl Total Bilirubin 1.8 H (0.2-1.0) mg/dl Direct Bilirubin 0.9 H (0-0.2) mg/dl AST 28 (13-39) U/L ALT 27 (7-52) U/L Alkaline Phosphatase 52 (34-104) U/L Total Creatine Kinase 288 H (30-223) U/L Troponin I High Sens 61.1 H* (0-20) pg/ml C-Reactive Protein (0-0.5) mg/dl Total Protein 7.4 (6.0-8.3) gm/dl Albumin 4.2 (3.4-5.0) gm/dl Lipase 72 (11-82) U/L Procalcitonin (0-0.5) ng/ml Urine Color Urine Appearance (Clear) Urine pH (4.5-7.5) Ur Specific [place] (1.000-1.030) Urine Protein (Negative) Urine Glucose (UA) (Negative) Urine Ketones (Negative) Urine Blood (Negative) Urine Nitrite (Negative) Urine Bilirubin (Negative) Urine Urobilinogen (Negative) Ur Leukocyte Esterase (Negative) Urine WBC (Auto) (0-5) /hpf Urine RBC (Auto) (0-4) /hpf U Hyaline Cast (Auto) (0-5) /lpf U Epithel Cells (Auto) (0-5) /lpf Urine Bacteria (Auto) (Negative) Ur Renal Epithelial Cell Urine Yeast Urine Opiates Screen (Neg) Ur Methadone, Qual (Neg) Urine Barbiturates (Neg) Ur Phencyclidine (PCP) (Neg) U Amphetamin/Meth Scrn (Neg) MDMA (Ecstasy) Screen (Neg) U Benzodiazepines Scrn (Neg) Ur Cocaine Metabolite (Neg) U Marijuana (THC) Screen (Neg) Ethyl Alcohol mg/dL < 10.0 (<10.0) mg/dl Anaplasma Smear Babesia Smear Lyme Disease IgG Ab (Negative) Lyme Disease IgM Ab (Negative) SARS-CoV-2 (PCR) (Negative) Influenza Type A (PCR) (Neg) Influenza Type B (PCR) (Neg) RSV (RT-PCR) (Neg) 08/10/22 08/10/22 08/10/22 Range/Units 19:15 20:02 20:05 WBC (4.8-10.8) K/ul RBC (4.63-6.08) M/uL Hgb (14.0-18.0) g/dl POC Hgb 21.4 H* (14.0-18.0) g/dl Hct (40.1-51.0) % POC Hct 63 H* (42-52) % MCV (80.0-100.0) fL MCH (25.0-34.0) pg MCHC (32.0-36.0) g/dL RDW Std Deviation (36.4-46.3) fL RDW Coeff of Ron (11.5-14.5) % Plt Count (130-400) K/uL MPV (9.4-12.4) fL Immature Gran % (Auto) % Neut % (Auto) % Lymph % (Auto) % [place] % (Auto) % Eos % (Auto) % Baso % (Auto) % Neut # (Auto) (1.4-6.5) K/uL Lymph # (Auto) (1.2-3.4) K/uL [place] # (Auto) (0.24-0.82) K/uL Eos # (Auto) (0-0.50) K/uL Baso # (Auto) (0-0.2) K/uL Immature Gran # (Auto) (0.00-0.02) K/uL ESR (0-15) mm/hr PT (9.0-12.0) Seconds INR (0.9-1.1) APTT (21.0-31.0) Seconds PTT Ratio VBG pH (7.36-7.41) VBG pCO2 (38-50) mmHg VBG pO2 mmHg VBG HCO3 mmol/L VBG O2 Saturation % VBG Base Excess mEq/L POC Sodium 137 (135-144) mmol/L Sodium (136-145) mmol/L POC Potassium 6.2 H* (3.3-5.0) mmol/L Potassium (3.5-5.1) mmol/L POC Chloride 105 (101-112) mmol/L Chloride (98-107) mmol/L Carbon Dioxide (21-32) mmol/L POC Total CO2 21 L (24-31) mmol/L Anion Gap (3-11) POC Anion Gap 18.0 (16-25) mmol/L POC BUN 35 H (7-18) mg/dl BUN (6-23) mg/dl Creatinine (0.6-1.4) mg/dl POC Creatinine 2.8 H (0.6-1.3) mg/dl Est Cr Clr Drug Dosing ml/min Est GFR ( Amer) ml/min Est GFR (Non-Af Amer) ml/min BUN/Creatinine Ratio (10-20) Glucose (70-99(Fasting)) mg/dl POC Glucose (other) 147 H (70-99) mg/dl Lactate 3.7 H* (0.4-2.0) mmol/L Calcium (8.5-10.1) mg/dl POC Ioniz Calcium Avelina 0.77 L* (1.12-1.32) mmol/l Magnesium (1.7-2.4) mg/dl Total Bilirubin (0.2-1.0) mg/dl Direct Bilirubin (0-0.2) mg/dl AST (13-39) U/L ALT (7-52) U/L Alkaline Phosphatase (34-104) U/L Total Creatine Kinase (30-223) U/L Troponin I High Sens (0-20) pg/ml C-Reactive Protein (0-0.5) mg/dl Total Protein (6.0-8.3) gm/dl Albumin (3.4-5.0) gm/dl Lipase (11-82) U/L Procalcitonin (0-0.5) ng/ml Urine Color Urine Appearance (Clear) Urine pH (4.5-7.5) Ur Specific [place] (1.000-1.030) Urine Protein (Negative) Urine Glucose (UA) (Negative) Urine Ketones (Negative) Urine Blood (Negative) Urine Nitrite (Negative) Urine Bilirubin (Negative) Urine Urobilinogen (Negative) Ur Leukocyte Esterase (Negative) Urine WBC (Auto) (0-5) /hpf Urine RBC (Auto) (0-4) /hpf U Hyaline Cast (Auto) (0-5) /lpf U Epithel Cells (Auto) (0-5) /lpf Urine Bacteria (Auto) (Negative) Ur Renal Epithelial Cell Urine Yeast Urine Opiates Screen (Neg) Ur Methadone, Qual (Neg) Urine Barbiturates (Neg) Ur Phencyclidine (PCP) (Neg) U Amphetamin/Meth Scrn (Neg) MDMA (Ecstasy) Screen (Neg) U Benzodiazepines Scrn (Neg) Ur Cocaine Metabolite (Neg) U Marijuana (THC) Screen (Neg) Ethyl Alcohol mg/dL (<10.0) mg/dl Anaplasma Smear Babesia Smear Lyme Disease IgG Ab (Negative) Lyme Disease IgM Ab (Negative) SARS-CoV-2 (PCR) NEGATIVE (Negative) Influenza Type A (PCR) Negative (Neg) Influenza Type B (PCR) Negative (Neg) RSV (RT-PCR) Negative (Neg) 08/10/22 08/10/22 08/10/22 Range/Units 20:26 20:35 21:18 WBC (4.8-10.8) K/ul RBC (4.63-6.08) M/uL Hgb (14.0-18.0) g/dl POC Hgb (14.0-18.0) g/dl Hct (40.1-51.0) % POC Hct (42-52) % MCV (80.0-100.0) fL MCH (25.0-34.0) pg MCHC (32.0-36.0) g/dL RDW Std Deviation (36.4-46.3) fL RDW Coeff of Ron (11.5-14.5) % Plt Count (130-400) K/uL MPV (9.4-12.4) fL Immature Gran % (Auto) % Neut % (Auto) % Lymph % (Auto) % [place] % (Auto) % Eos % (Auto) % Baso % (Auto) % Neut # (Auto) (1.4-6.5) K/uL Lymph # (Auto) (1.2-3.4) K/uL [place] # (Auto) (0.24-0.82) K/uL Eos # (Auto) (0-0.50) K/uL Baso # (Auto) (0-0.2) K/uL Immature Gran # (Auto) (0.00-0.02) K/uL ESR (0-15) mm/hr PT 13.7 H (9.0-12.0) Seconds INR 1.3 H (0.9-1.1) APTT 20.7 L (21.0-31.0) Seconds PTT Ratio 0.8 VBG pH 7.45 H (7.36-7.41) VBG pCO2 35 L (38-50) mmHg VBG pO2 49 mmHg VBG HCO3 24 mmol/L VBG O2 Saturation 78.5 % VBG Base Excess 0.7 mEq/L POC Sodium (135-144) mmol/L Sodium (136-145) mmol/L POC Potassium (3.3-5.0) mmol/L Potassium (3.5-5.1) mmol/L POC Chloride (101-112) mmol/L Chloride (98-107) mmol/L Carbon Dioxide (21-32) mmol/L POC Total CO2 (24-31) mmol/L Anion Gap (3-11) POC Anion Gap (16-25) mmol/L POC BUN (7-18) mg/dl BUN (6-23) mg/dl Creatinine (0.6-1.4) mg/dl POC Creatinine (0.6-1.3) mg/dl Est Cr Clr Drug Dosing ml/min Est GFR ( Amer) ml/min Est GFR (Non-Af Amer) ml/min BUN/Creatinine Ratio (10-20) Glucose (70-99(Fasting)) mg/dl POC Glucose (other) (70-99) mg/dl Lactate (0.4-2.0) mmol/L Calcium (8.5-10.1) mg/dl POC Ioniz Calcium Avelina (1.12-1.32) mmol/l Magnesium (1.7-2.4) mg/dl Total Bilirubin (0.2-1.0) mg/dl Direct Bilirubin (0-0.2) mg/dl AST (13-39) U/L ALT (7-52) U/L Alkaline Phosphatase (34-104) U/L Total Creatine Kinase (30-223) U/L Troponin I High Sens (0-20) pg/ml C-Reactive Protein (0-0.5) mg/dl Total Protein (6.0-8.3) gm/dl Albumin (3.4-5.0) gm/dl Lipase (11-82) U/L Procalcitonin (0-0.5) ng/ml Urine Color Dark Yellow Urine Appearance Turbid A (Clear) Urine pH 5.0 (4.5-7.5) Ur Specific [place] 1.029 (1.000-1.030) Urine Protein 1+ H (Negative) Urine Glucose (UA) 1+ H (Negative) Urine Ketones Trace H (Negative) Urine Blood Trace H (Negative) Urine Nitrite Positive A (Negative) Urine Bilirubin 2+ H (Negative) Urine Urobilinogen Negative (Negative) Ur Leukocyte Esterase 1+ H (Negative) Urine WBC (Auto) 10-30 H (0-5) /hpf Urine RBC (Auto) 0-4 (0-4) /hpf U Hyaline Cast (Auto) >30 H (0-5) /lpf U Epithel Cells (Auto) >30 H (0-5) /lpf Urine Bacteria (Auto) Negative (Negative) Ur Renal Epithelial Cell Not Reportable Urine Yeast Not Reportable Urine Opiates Screen (Neg) Ur Methadone, Qual (Neg) Urine Barbiturates (Neg) Ur Phencyclidine (PCP) (Neg) U Amphetamin/Meth Scrn (Neg) MDMA (Ecstasy) Screen (Neg) U Benzodiazepines Scrn (Neg) Ur Cocaine Metabolite (Neg) U Marijuana (THC) Screen (Neg) Ethyl Alcohol mg/dL (<10.0) mg/dl Anaplasma Smear Babesia Smear Lyme Disease IgG Ab (Negative) Lyme Disease IgM Ab (Negative) SARS-CoV-2 (PCR) (Negative) Influenza Type A (PCR) (Neg) Influenza Type B (PCR) (Neg) RSV (RT-PCR) (Neg) 08/10/22 08/10/22 08/10/22 Range/Units 21:18 21:29 21:29 WBC (4.8-10.8) K/ul RBC (4.63-6.08) M/uL Hgb (14.0-18.0) g/dl POC Hgb (14.0-18.0) g/dl Hct (40.1-51.0) % POC Hct (42-52) % MCV (80.0-100.0) fL MCH (25.0-34.0) pg MCHC (32.0-36.0) g/dL RDW Std Deviation (36.4-46.3) fL RDW Coeff of Ron (11.5-14.5) % Plt Count (130-400) K/uL MPV (9.4-12.4) fL Immature Gran % (Auto) % Neut % (Auto) % Lymph % (Auto) % [place] % (Auto) % Eos % (Auto) % Baso % (Auto) % Neut # (Auto) (1.4-6.5) K/uL Lymph # (Auto) (1.2-3.4) K/uL [place] # (Auto) (0.24-0.82) K/uL Eos # (Auto) (0-0.50) K/uL Baso # (Auto) (0-0.2) K/uL Immature Gran # (Auto) (0.00-0.02) K/uL ESR < 1 (0-15) mm/hr PT (9.0-12.0) Seconds INR (0.9-1.1) APTT (21.0-31.0) Seconds PTT Ratio VBG pH (7.36-7.41) VBG pCO2 (38-50) mmHg VBG pO2 mmHg VBG HCO3 mmol/L VBG O2 Saturation % VBG Base Excess mEq/L POC Sodium (135-144) mmol/L Sodium (136-145) mmol/L POC Potassium (3.3-5.0) mmol/L Potassium (3.5-5.1) mmol/L POC Chloride (101-112) mmol/L Chloride (98-107) mmol/L Carbon Dioxide (21-32) mmol/L POC Total CO2 (24-31) mmol/L Anion Gap (3-11) POC Anion Gap (16-25) mmol/L POC BUN (7-18) mg/dl BUN (6-23) mg/dl Creatinine (0.6-1.4) mg/dl POC Creatinine (0.6-1.3) mg/dl Est Cr Clr Drug Dosing ml/min Est GFR ( Amer) ml/min Est GFR (Non-Af Amer) ml/min BUN/Creatinine Ratio (10-20) Glucose (70-99(Fasting)) mg/dl POC Glucose (other) (70-99) mg/dl Lactate (0.4-2.0) mmol/L Calcium (8.5-10.1) mg/dl POC Ioniz Calcium Avelina (1.12-1.32) mmol/l Magnesium (1.7-2.4) mg/dl Total Bilirubin (0.2-1.0) mg/dl Direct Bilirubin (0-0.2) mg/dl AST (13-39) U/L ALT (7-52) U/L Alkaline Phosphatase (34-104) U/L Total Creatine Kinase (30-223) U/L Troponin I High Sens (0-20) pg/ml C-Reactive Protein < 0.50 (0-0.5) mg/dl Total Protein (6.0-8.3) gm/dl Albumin (3.4-5.0) gm/dl Lipase (11-82) U/L Procalcitonin (0-0.5) ng/ml Urine Color Urine Appearance (Clear) Urine pH (4.5-7.5) Ur Specific [facility] [place] (1.000-1.030) Urine Protein (Negative) Urine Glucose (UA) (Negative) Urine Ketones (Negative) Urine Blood (Negative) Urine Nitrite (Negative) Urine Bilirubin (Negative) Urine Urobilinogen (Negative) Ur Leukocyte Esterase (Negative) Urine WBC (Auto) (0-5) /hpf Urine RBC (Auto) (0-4) /hpf U Hyaline Cast (Auto) (0-5) /lpf U Epithel Cells (Auto) (0-5) /lpf Urine Bacteria (Auto) (Negative) Ur Renal Epithelial Cell Urine Yeast Urine Opiates Screen Neg (Neg) Ur Methadone, Qual Neg (Neg) Urine Barbiturates Neg (Neg) Ur Phencyclidine (PCP) Neg (Neg) U Amphetamin/Meth Scrn Pos H (Neg) MDMA (Ecstasy) Screen Neg (Neg) U Benzodiazepines Scrn Neg (Neg) Ur Cocaine Metabolite Neg (Neg) U Marijuana (THC) Screen Neg (Neg) Ethyl Alcohol mg/dL (<10.0) mg/dl Anaplasma Smear Babesia Smear Lyme Disease IgG Ab (Negative) Lyme Disease IgM Ab (Negative) SARS-CoV-2 (PCR) (Negative) Influenza Type A (PCR) (Neg) Influenza Type B (PCR) (Neg) RSV (RT-PCR) (Neg) 08/10/22 08/10/22 08/10/22 Range/Units 21:29 21:29 21:29 WBC (4.8-10.8) K/ul RBC (4.63-6.08) M/uL Hgb (14.0-18.0) g/dl POC Hgb (14.0-18.0) g/dl Hct (40.1-51.0) % POC Hct (42-52) % MCV (80.0-100.0) fL MCH (25.0-34.0) pg MCHC (32.0-36.0) g/dL RDW Std Deviation (36.4-46.3) fL RDW Coeff of Ron (11.5-14.5) % Plt Count (130-400) K/uL MPV (9.4-12.4) fL Immature Gran % (Auto) % Neut % (Auto) % Lymph % (Auto) % [place] % (Auto) % Eos % (Auto) % Baso % (Auto) % Neut # (Auto) (1.4-6.5) K/uL Lymph # (Auto) (1.2-3.4) K/uL [place] # (Auto) (0.24-0.82) K/uL Eos # (Auto) (0-0.50) K/uL Baso # (Auto) (0-0.2) K/uL Immature Gran # (Auto) (0.00-0.02) K/uL ESR (0-15) mm/hr PT (9.0-12.0) Seconds INR (0.9-1.1) APTT (21.0-31.0) Seconds PTT Ratio VBG pH (7.36-7.41) VBG pCO2 (38-50) mmHg VBG pO2 mmHg VBG HCO3 mmol/L VBG O2 Saturation % VBG Base Excess mEq/L POC Sodium (135-144) mmol/L Sodium 141 (136-145) mmol/L POC Potassium (3.3-5.0) mmol/L Potassium TNP (3.5-5.1) mmol/L POC Chloride (101-112) mmol/L Chloride 110 H (98-107) mmol/L Carbon Dioxide 21 (21-32) mmol/L POC Total CO2 (24-31) mmol/L Anion Gap 10 (3-11) POC Anion Gap (16-25) mmol/L POC BUN (7-18) mg/dl BUN 34 H (6-23) mg/dl Creatinine 2.46 H (0.6-1.4) mg/dl POC Creatinine (0.6-1.3) mg/dl Est Cr Clr Drug Dosing 43.8 ml/min Est GFR ( Amer) 36.6 ml/min Est GFR (Non-Af Amer) 31.6 ml/min BUN/Creatinine Ratio 13.8 (10-20) Glucose 121 H (70-99(Fasting)) mg/dl POC Glucose (other) (70-99) mg/dl Lactate (0.4-2.0) mmol/L Calcium 8.1 L D (8.5-10.1) mg/dl POC Ioniz Calcium Avelina (1.12-1.32) mmol/l Magnesium (1.7-2.4) mg/dl Total Bilirubin (0.2-1.0) mg/dl Direct Bilirubin (0-0.2) mg/dl AST (13-39) U/L ALT (7-52) U/L Alkaline Phosphatase (34-104) U/L Total Creatine Kinase (30-223) U/L Troponin I High Sens (0-20) pg/ml C-Reactive Protein (0-0.5) mg/dl Total Protein (6.0-8.3) gm/dl Albumin (3.4-5.0) gm/dl Lipase (11-82) U/L Procalcitonin < 0.05 (0-0.5) ng/ml Urine Color Urine Appearance (Clear) Urine pH (4.5-7.5) Ur Specific [place] (1.000-1.030) Urine Protein (Negative) Urine Glucose (UA) (Negative) Urine Ketones (Negative) Urine Blood (Negative) Urine Nitrite (Negative) Urine Bilirubin (Negative) Urine Urobilinogen (Negative) Ur Leukocyte Esterase (Negative) Urine WBC (Auto) (0-5) /hpf Urine RBC (Auto) (0-4) /hpf U Hyaline Cast (Auto) (0-5) /lpf U Epithel Cells (Auto) (0-5) /lpf Urine Bacteria (Auto) (Negative) Ur Renal Epithelial Cell Urine Yeast Urine Opiates Screen (Neg) Ur Methadone, Qual (Neg) Urine Barbiturates (Neg) Ur Phencyclidine (PCP) (Neg) U Amphetamin/Meth Scrn (Neg) MDMA (Ecstasy) Screen (Neg) U Benzodiazepines Scrn (Neg) Ur Cocaine Metabolite (Neg) U Marijuana (THC) Screen (Neg) Ethyl Alcohol mg/dL (<10.0) mg/dl Anaplasma Smear See Comment Babesia Smear See Comment Lyme Disease IgG Ab Negative (Negative) Lyme Disease IgM Ab Negative (Negative) SARS-CoV-2 (PCR) (Negative) Influenza Type A (PCR) (Neg) Influenza Type B (PCR) (Neg) RSV (RT-PCR) (Neg) Imaging Data Radiologist's Impression: Abdomen/Pelvis CT 08/10/22 19:[address] WITHOUT CONTRAST HISTORY: Acute generalized abdominal pain with nausea and vomiting abd nv TECHNIQUE: Multiaxial CT images of the abdomen and pelvis were performed without contrast. A dose lowering technique was utilized adhering to the principles of ALARA. COMPARISON STUDY: Chest radiograph of same day FINDINGS: Study is degraded by respiratory motion artifact and limited by respiratory motion. The lung bases. No pneumatosis or pneumoperitoneum. Unremarkable spleen, pancreas, gallbladder and adrenal glands. Hepatic steatosis with hepatomegaly. 1.5 cm cyst of the hepatic dome. Unremarkable kidneys. No urolith or hydronephrosis identified. Circumferential urinary bladder wall thickening with partial distention. No abdominal aortic aneurysm. No lymphadenopathy identified. No bowel obstruction or bowel wall thickening. No ascites or mesenteric inflammation. Noninflamed appendix. Unremarkable soft tissues. No acute fracture identified. IMPRESSION: 1. No acute intra-abdominal or intrapelvic abnormality identified. 2. No bowel obstruction or bowel wall thickening. Normal appendix. ACT 112: Negative or not required by law. The above report was generated using voice recognition software. It may contain grammatical, syntax or spelling errors. Electronically signed by: Feroz Elliott M.D. 08/10/2022 8:46 PM Chest X-Ray 08/10/22 19:19 XR chest 1V portable HISTORY: 42 years-old Male nv acute nausea and vomiting COMPARISON: Chest radiograph 07/29/2020 TECHNIQUE: AP view of the chest FINDINGS: Cardiomediastinal and hilar silhouettes are within normal limits. No pneumothorax, pleural effusion, airspace consolidation or overt pulmonary edema. Bones of the chest appear grossly intact. IMPRESSION: No acute process. ACT 112: Negative or not required by law. The above report was generated using voice recognition software. It may contain grammatical, syntax or spelling errors. Electronically signed by: Feroz Elliott M.D. 08/10/2022 8:[address] 08/10/22 19:19 CT head/brain wo con CLINICAL HISTORY: 42 years-old Male with long onset 1800. Acutely altered mental status TECHNIQUE: Multiple axial CT images of the head were obtained without contrast. A dose lowering technique was utilized adhering to the principles of ALARA. CT DOSE: 1353.56 mGy.cm COMPARISON: Head CT 07/29/2020. FINDINGS: No acute intracranial hemorrhage, midline shift, intracranial mass, hydrocephalus, territorial ischemia or abnormal extra-axial collection. Slightly increased attenuation of the left middle cerebral artery is likely artifactual. The calvarium is intact. The paranasal sinuses, mastoid air cells, and middle ear cavities are clear. IMPRESSION: No acute intracranial abnormality. ACT 112: Negative or not required by law. The above report was generated using voice recognition software. It may contain grammatical, syntax or spelling errors. Electronically signed by: Feroz Elliott M.D. 08/10/2022 8:36 PM ECG Data Indication: + weakness Rate (beats per minute): 132 Rhythm: + sinus tachycardia ECG Intervals/blocks: + Normal QRS, + Normal DC and + Normal QT-c ECG ST segments: + Normal ST segments ECG Findings: + Peaked T waves (V2 through V6) [facility] Narrative 1913: The patient was evaluated in room B4. A complete history and physical exam was performed Cardiac monitoring: An order was placed for continuous cardiac monitoring. The monitor shows a rate of 120 with sinus tachycardia rhythm Called to bedside by nursing. EKG showed peaked T waves. I-STAT was performed. Patient's glucose on the i-STAT was 147. Potassium on the i-STAT was 6.2. Creatinine 2.8. Patient will be treated with calcium gluconate 1 g IV piggyback given the patient's potassium is 6.2 and peaked T waves on EKG. Patient reporting a anaphylactic reaction to iodine. Patient will be taken for stat CT of the head and CT abdomen pelvis without contrast. 2054: Patient remains tachycardic. His heart rate is improved with IV fluids. Chest x-ray CT of the head and CT of the abdomen pelvis are within normal limits. CT of the head was conducted within 6 hours of headache onset effe ctively ruling out SAH. Labs show a white blood cell count of 16.91. Hemoglobin 19.9, patient does have a history of polycythemia. Coags are within normal limits. Potassium 6.5. Creatinine 2.64. Lactic acid 3.7. Ionized calcium 0.77. Total bilirubin 1.8 direct bilirubin 0.9. Troponin 61.1. Patient reporting no chest pain or difficulty breathing. Given the patient's leukocytosis and lactic acidemia the patient will be treated for any bacterial infection with cefepime 2 g IV piggyback. Influenza is still a very large possibility and is still pending as well as COVID swab. Discussed the case with [facility] hospitalist Dr. Duarte who also recommends obtaining ABG. Medical alcohol and drug screen are pending. Dr. Duarte team will admit the patient to their service. Impression & Plan Hyperkalemia, ENRRIQUE (acute kidney injury), Polycythemia, Sepsis, Elevated troponin Discharge Plan Visit Data Chief Complaint: TIA Symptoms Stated Complaint: WEAK, ASPHAGIA ED Provider: Mani De La Cruz Discharge Problem: Hyperkalemia, ENRRIQUE (acute kidney injury), Polycythemia, Sepsis, Elevated troponin Patient Disposition: Admitted As Inpatient Discharge Instructions Interventions: ED Discharge Assessment Last Done: 08/10/22 22:57
[2022-08-10 20:14] LABS: Bilirubin Direct 0.9 mg/dl (0-0.2)
[2022-08-10 20:32] LABS: Potassium 6.5 mmol/L (3.5-5.1)
[2022-08-10 20:33] LABS: Albumin Level 4.2 gm/dl (3.4-5.0); BUN Creatinine Ratio 12.5 (10-20); Bilirubin,Total 1.8 mg/dl (0.2-1.0); Calcium 10.1 mg/dl (8.5-10.1); Creatinine Clr Calc Pharmacy 40.8 ml/min; Est GFR (African American) 33.6 ml/min; Magnesium 1.9 mg/dl (1.7-2.4); Total Protein 7.4 gm/dl (6.0-8.3); Troponin I High Sensitivity 61.1 pg/ml (0-20)
--- NOTE | 2022-08-10 20:37 | CT Scan Report ---
CT head/brain wo con CLINICAL HISTORY: 42 years-old Male with long onset 1800. Acutely altered mental status TECHNIQUE: Multiple axial CT images of the head were obtained without contrast. A dose lowering tech nique was utilized adhering to the principles of ALARA. CT DOSE: 1353.56 mGy.cm COMPARISON: Head CT 07/29/2020. FINDINGS: No acute intracranial hemorrhage, midline shift, intracranial mass, hydrocephalus, territorial ischem ia or abnormal extra-axial collection. Slightly increased attenuation of the left middle cerebral art minerva is likely artifactual. The calvarium is intact. The paranasal sinuses, mastoid air cells, and middle ear cavities are clear . IMPRESSION: No acute intracranial abnormality. ACT 112: Negative or not required by law. The above report was generated using voice recognition software. It may contain grammatical, syntax o r spelling errors. Electronically signed by: Feroz Elliott M.D. 08/10/2022 8:36 PM
--- NOTE | 2022-08-10 20:40 | XRay Report ---
XR chest 1V portable HISTORY: 42 years-old Male nv acute nausea and vomiting COMPARISON: Chest radiograph 07/29/2020 TECHNIQUE: AP view of the chest FINDINGS: Cardiomediastinal and hilar silhouettes are within normal limits. No pneumothorax, pleural effusion, airspace consolidation or overt pulmonary edema. Bones of the chest appear grossly intact. IMPRESSION: No acute process. ACT 112: Negative or not required by law. The above report was generated using voice recognition software. It may contain grammatical, syntax o r spelling errors. Electronically signed by: Feroz Elliott M.D. 08/10/2022 8:39 PM
[2022-08-10] MEDS ORDERED: DEXTROSE 50% 50 ML SYRINGE IV STA (20:44)
[2022-08-10] MEDS ORDERED: INSULIN HUMAN REGULAR PER UNIT 10 UNITS in SYRINGE 9.9 ML IV STA (20:44)
[2022-08-10] MEDS ORDERED: ONDANSETRON INJ 2 MG/ML 2 ML VIAL IV STA (20:44)
--- NOTE | 2022-08-10 20:48 | CT Scan Report ---
ABDOMEN AND PELVIS CT WITHOUT CONTRAST HISTORY: Acute generalized abdominal pain with nausea and vomiting abd nv TECHNIQUE: Multiaxial CT images of the abdomen and pelvis were performed without contrast. A dose lo wering technique was utilized adhering to the principles of ALARA. COMPARISON STUDY: Chest radiograph of same day FINDINGS: Study is degraded by respiratory motion artifact and limited by respiratory motion. The alie g bases. No pneumatosis or pneumoperitoneum. Unremarkable spleen, pancreas, gallbladder and adrenal g lands. Hepatic steatosis with hepatomegaly. 1.5 cm cyst of the hepatic dome. Unremarkable kidneys. No urolith or hydronephrosis identified. Circumferential urinary bladder wall thickening with partial d istention. No abdominal aortic aneurysm. No lymphadenopathy identified. No bowel obstruction or bowel wall thickening. No ascites or mesenteric inflammation. Noninflamed dakota endix. Unremarkable soft tissues. No acute fracture identified. IMPRESSION: 1. No acute intra-abdominal or intrapelvic abnormality identified. 2. No bowel obstruction or bowel wall thickening. Normal appendix. ACT 112: Negative or not required by law. The above report was generated using voice recognition software. It may contain grammatical, syntax o r spelling errors. Electronically signed by: Feroz Elliott M.D. 08/10/2022 8:46 PM
[2022-08-10] MEDS ORDERED: CEFEPIME 2,000 MG/20 ML VIAL IV STA (20:54)
[2022-08-10 20:59] LABS: INR 1.3 (0.9-1.1); Partial Thromboplastin Ratio 0.8; Partial Thromboplastin Time 20.7 Seconds (21.0-31.0); Prothrombin Time 13.7 Seconds (9.0-12.0)
[2022-08-10] MEDS ORDERED: NovoLIN-R INSULIN PER UNIT CHARGE IV ONE (21:00)
[2022-08-10 21:01] LABS: Influenza A virus by PCR Negative (Neg); Influenza B virus by PCR Negative (Neg); RSV by PCR Negative (Neg); SARS CoV2 RNA(COVID-19) Ceph NEGATIVE (Negative)
[2022-08-10] MEDS ORDERED: SODIUM CHLORIDE 0.9% 1000ML 500 ML IV ONE (21:01)
--- NOTE | 2022-08-10 21:04 | History & Physical Report ---
Date of Service August 10, 2022 Assessment & Plan (1) Sepsis: Plan: - Unknown source at this time, but with WBC 16, lactate 3.7, tachycardia, tachypnea, ENRRIQUE--suspect there may be an underlying infection, urinary being most likely but also considering tick borne illness. - Blood cultures collected in ED. - Received 3.5 L IVF in ED, will continue mIVF on floor. - He was given an initial dose of cefepime in ED. Will hold off on further abx for now, will see how he responds to IVF, repeat labs in AM and can add on abx tomorrow if warranted. - UA, UDS pending. Tickborne labs, peripheral smear pending. (2) ENRRIQUE (acute kidney injury): Plan: - BUN 35, Cr 2.6, K 6.5. - Cr baseline 1-1.2. - CK 288. - Unknown etiology but given his polycythemia with no consistent treatment, there is concern for renal infarct, as well as possible UTI. - He has an iodine allergy therefore imaging was done without contrast but CT A/P shows unremarkable kidneys. (3) Hyperkalemia: Plan: - K 6.5 in setting of ENRRIQUE, unknown source, UTI? - Insulin, dextrose, calcium gluconate given in ED. - Will recheck BMP in 4 hours and in AM to monitor for improvement. (4) Elevated troponin: Plan: - trop 61, EKG with peaked T waves in setting of hyperkalemia--management of this as above. - Patient without prem chest pain, palpitations, SOB, syncope, so suspect this is second to illness/infection/dehydration and nto ACS. - Will trend overnight and obtain an echo in the morning. (5) Polycythemia: Plan: - Hgb 19.9, elevated WBC and PLTs suggest a degree of dehydration, however he also had an elevation to this degree from admission 2 years ago. - It was recommended he be checked for a MAL mutation, do not have records of testing but based on conversation with patient and , it seems he was tested, unknown results, but has had phlebotomy treatments previously, though has not been consistent with them. - It is reassuring that his head CT does not show evidence of a stroke but he certainly is at risk given polycythemia and is nonspecific neuro changes (word salad, mental fog) - Will place consult for hematology to see patient while admitted. (6) REBECCA on CPAP: Plan: - CPAP at night. (7) GERD (gastroesophageal reflux disease): Plan: - Continue PPI, switch omeprazole to Protonix per hospital formulary. (8) Anxiety and depression: Plan: - Continue Wellbutrin. (9) ADHD: Plan: - Hold dextroamphetamine during hospitalization. 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 Plan - Admit to PCU. - SCDs for VTE ppx. - Full Code. History of Present Illness Chief Complaint: nausea, vomiting, headache x1 day Primary Care Provider: Thien Keller Darrick Valdez is a 42 y/o male with a PMH significant for REBECCA, GERD, depression, ADD, glaucoma, chronic left eye vision loss at baseline, and possible PCV who presents today with multiple concerns. One hour prior to presentation he developed a headache with associated vomiting and felt as though he might pass out. Prior to the headache, he had already been vomiting frequently and has been nauseous, diaphoretic, and breathing rapidly. HE also noted feeling a little mentally foggy and at bedside reports intermittent "word salad". He describes that the vomit looked dark brown, no obvious blood noted. The vomiting has been spontaneous. He has not had any fever, chills, body aches, SOB, cough, or other URI symptoms. No chest pain, palpitations, abdominal pain, diarrhea, hematochezia, melena, dysuria, or change in urinary frequency. He has no known tick bites or sick contact exposures of patients or family/friend with similar symptoms. He denies tobacco, drug, or regular alcohol use. He had a similar presentation as today two years ago, at that time he had more behavioral changes it was suspected he had polycythemia but his encephalopathy had resolved by discharge at that time without an exact cause determined. On presentation is tachycardic with HR 120s, slightly tachypneic, otherwise VS wnl, afebrile and normotensive, > 95% on RA. WBC 16.9, Hgb 19.9, PLT 510. PT 13.7, INR 1.3. BUN 35, Cr 2.6, K 6.5, lactate 3.7, t bili 1.8, d bili 0.9. Trop 61. ABG pending. EtOH and UDS pending. Blood cultures collected, pending. Imaging, including CXR, head CT, and CT A/P are without any acute findings. Allergies Allergy/AdvReac Type Severity Reaction Status Date / Time iodine Allergy Severe Anaphylaxis Verified 08/22/18 09:30 codeine Allergy Intermediate Rash Verified 08/22/18 09:30 Home Medications Medication Instructions Recorded Confirmed Type albuterol sulfate 90 mcg/actuation 1 puff inhalation QID PRN SOB 08/09/18 07/29/20 History aerosol inhaler omeprazole magnesium 20 mg 20 mg PO BID 08/09/18 07/29/20 History tablet,delayed release (Prilosec OTC) bupropion HCl 200 mg tablet,12 hr 200 mg PO BID 07/29/20 07/29/20 History sustained-release dextroamphetamine sulfate 15 mg 30 mg PO BID 07/29/20 07/29/20 History capsule,extended release aspirin 81 mg tablet,delayed 81 mg PO DAILY #90 tabs 07/31/20 Rx release Past Med/Surg History Medical History (Updated 08/11/22 @ 21:41 by Vance Valladares MD) Asthma Congenital glaucoma Obesity (BMI 30.0-34.9) Surgical History H/O wisdom tooth extraction History of adenoidectomy History of colonoscopy History of esophagogastroduodenoscopy (EGD) History of tonsillectomy Family History Denies family history of Myocardial infarction Stroke Social History Smoking Status: Never smoker Second Hand Exposure: No; Hx Alcohol Use: Yes Alcohol type: beer, wine and hard liquor Alcohol Intake Frequency Comment: 2-3 beers or drinks a week Hx Substance Use: No Preferred Language: Greenlandic 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 Beliefs That Will Affect Care: None Current Living Situation: Spouse and Family Current Living Situation Comment: Pt lives at home with spouse and son Other Information That Helps Us Care for You: No Feels Safe at Home: Yes Safety Concerns: Feels Safe At This Time Assistive Devices: CPAP and Glasses Review of Systems Review of Systems: Constitutional: No fever/chills, weakness, fatigue, myalgias, anorexia, night sweats Eyes: No diplopia, no worsening or blurred vision ENT: normal hearing, no trouble swallowing Respiratory: No cough, sputum, dyspnea at rest or on exertion Cardiovascular: No chest pain, tightness or palpitations Abdomen: No pain, nausea, vomiting, diarrhea or constipation : Denies dysuria, hematuria, increased urgency/frequency, urinary retention Musculoskeletal: No joint pain, calf pain, swelling Neurologic: No weakness, numbness/tingling, or balance problems Psychiatric: No anxiety or depression Skin: No rash or itch Physical Exam Physical Exam: General: awake, alert, no apparent distress, diaphoretic and mildly tachypneic Head: Normocephalic, atraumatic ENT: PERRL, EOMI, no pharyngeal exudate, mucous membranes moist Chest: Clear to auscultation, on room air, no adventitious breath sounds Cardiac: tachycardic rate and rhythm, no murmur, no JVD, normal peripheral pulses, good capillary refill Abdominal: NABS x 4 quadrants, soft, nontender to palpation, no rebound, guarding or tenderness Extremities: Normal inspection, no peripheral edema or erythema, calfs nontender to palpation Psych: Normal mood and affect Neuro: AAO x 3, strength intact bilaterally and rated 5/5, no motor deficits, speech is clear, no peripheral sensory deficits Skin: no rash or erythema Results & Data Results & Data ([facility]) Vital Signs (Past 12 Hours) Vital Signs Temp Pulse Pulse Resp BP BP Pulse Ox 08/10/22 20:41 115 H 32 H 112/71 97 08/10/22 19:56 96 08/10/22 19:56 36.9 C 117 H 38 H 138/60 96 08/10/22 19:49 36.9 C 122 H 28 H 126/70 97 08/10/22 19:22 126 H 30 H 126/70 99 O2 Del Method 08/10/22 20:41 Room Air 08/10/22 19:56 Room Air 08/10/22 19:56 Room Air 08/10/22 19:49 Room Air 08/10/22 19:22 Laboratory Results Abnormal lab results 08/10/22 08/10/22 08/10/22 Range/Units 19:07 19:07 19:15 WBC 16.91 H (4.8-10.8) K/ul RBC 6.98 H (4.63-6.08) M/uL Hgb 19.9 H (14.0-18.0) g/dl POC Hgb 21.4 H* (14.0-18.0) g/dl Hct 58.3 H (40.1-51.0) % POC Hct 63 H* (42-52) % RDW Std Deviation 50.4 H (36.4-46.3) fL RDW Coeff of Ron 18.7 H (11.5-14.5) % Plt Count 510 H (130-400) K/uL MPV 9.3 L (9.4-12.4) fL Neut # (Auto) 12.99 H (1.4-6.5) K/uL Coleman # (Auto) 1.40 H (0.24-0.82) K/uL Immature Gran # (Auto) 0.10 H (0.00-0.02) K/uL PT (9.0-12.0) Seconds INR (0.9-1.1) APTT (21.0-31.0) Seconds VBG pH (7.36-7.41) VBG pCO2 (38-50) mmHg POC Potassium 6.2 H* (3.3-5.0) mmol/L Potassium 6.5 H* (3.5-5.1) mmol/L POC Total CO2 21 L (24-31) mmol/L Anion Gap 16 H (3-11) POC BUN 35 H (7-18) mg/dl BUN 33 H (6-23) mg/dl Creatinine 2.64 H (0.6-1.4) mg/dl POC Creatinine 2.8 H (0.6-1.3) mg/dl Glucose 142 H (70-99(Fasting)) mg/dl POC Glucose (other) 147 H (70-99) mg/dl Lactate (0.4-2.0) mmol/L POC Ioniz Calcium Avelina 0.77 L* (1.12-1.32) mmol/l Total Bilirubin 1.8 H (0.2-1.0) mg/dl Direct Bilirubin 0.9 H (0-0.2) mg/dl Total Creatine Kinase 288 H (30-223) U/L Troponin I High Sens 61.1 H* (0-20) pg/ml 08/10/22 08/10/22 08/10/22 Range/Units 20:02 20:26 20:35 WBC (4.8-10.8) K/ul RBC (4.63-6.08) M/uL Hgb (14.0-18.0) g/dl POC Hgb (14.0-18.0) g/dl Hct (40.1-51.0) % POC Hct (42-52) % RDW Std Deviation (36.4-46.3) fL RDW Coeff of Ron (11.5-14.5) % Plt Count (130-400) K/uL MPV (9.4-12.4) fL Neut # (Auto) (1.4-6.5) K/uL Coleman # (Auto) (0.24-0.82) K/uL Immature Gran # (Auto) (0.00-0.02) K/uL PT 13.7 H (9.0-12.0) Seconds INR 1.3 H (0.9-1.1) APTT 20.7 L (21.0-31.0) Seconds VBG pH 7.45 H (7.36-7.41) VBG pCO2 35 L (38-50) mmHg POC Potassium (3.3-5.0) mmol/L Potassium (3.5-5.1) mmol/L POC Total CO2 (24-31) mmol/L Anion Gap (3-11) POC BUN (7-18) mg/dl BUN (6-23) mg/dl Creatinine (0.6-1.4) mg/dl POC Creatinine (0.6-1.3) mg/dl Glucose (70-99(Fasting)) mg/dl POC Glucose (other) (70-99) mg/dl Lactate 3.7 H* (0.4-2.0) mmol/L POC Ioniz Calcium Avelina (1.12-1.32) mmol/l Total Bilirubin (0.2-1.0) mg/dl Direct Bilirubin (0-0.2) mg/dl Total Creatine Kinase (30-223) U/L Troponin I High Sens (0-20) pg/ml Diagnostic Findings Abdomen/Pelvis CT 08/10/22 19:[address] WITHOUT CONTRAST HISTORY: Acute generalized abdominal pain with nausea and vomiting abd nv TECHNIQUE: Multiaxial CT images of the abdomen and pelvis were performed without contrast. A dose lowering technique was utilized adhering to the principles of ALARA. COMPARISON STUDY: Chest radiograph of same day FINDINGS: Study is degraded by respiratory motion artifact and limited by respiratory motion. The lung bases. No pneumatosis or pneumoperitoneum. Unremarkable spleen, pancreas, gallbladder and adrenal glands. Hepatic steatosis with hepatomegaly. 1.5 cm cyst of the hepatic dome. Unremarkable kidneys. No urolith or hydronephrosis identified. Circumferential urinary bladder wall thick ening with partial distention. No abdominal aortic aneurysm. No lymphadenopathy identified. No bowel obstruction or bowel wall thickening. No ascites or mesenteric inflammation. Noninflamed appendix. Unremarkable soft tissues. No acute fracture identified. IMPRESSION: 1. No acute intra-abdominal or intrapelvic abnormality identified. 2. No bowel obstruction or bowel wall thickening. Normal appendix. ACT 112: Negative or not required by law. The above report was generated using voice recognition software. It may contain grammatical, syntax or spelling errors. Electronically signed by: Feroz Elliott M.D. 08/10/2022 8:46 PM Chest X-Ray 08/10/22 19:19 XR chest 1V portable HISTORY: 42 years-old Male nv acute nausea and vomiting COMPARISON: Chest radiograph 07/29/2020 TECHNIQUE: AP view of the chest FINDINGS: Cardiomediastinal and hilar silhouettes are within normal limits. No pneumothorax, pleural effusion, airspace consolidation or overt pulmonary edema. Bones of the chest appear grossly intact. IMPRESSION: No acute process. ACT 112: Negative or not required by law. The above report was generated using voice recognition software. It may contain grammatical, syntax or spelling errors. Electronically signed by: Feroz Elliott M.D. 08/10/2022 8:[address] 08/10/22 19:19 CT head/brain wo con CLINICAL HISTORY: 42 years-old Male with long onset 1800. Acutely altered mental status TECHNIQUE: Multiple axial CT images of the head were obtained without contrast. A dose lowering technique was utilized adhering to the principles of ALARA. CT DOSE: 1353.56 mGy.cm COMPARISON: Head CT 07/29/2020. FINDINGS: No acute intracranial hemorrhage, midline shift, intracranial mass, hydrocephalus, territorial ischemia or abnormal extra-axial collection. Slightly increased attenuation of the left middle cerebral artery is likely artifactual. The calvarium is intact. The paranasal sinuses, mastoid air cells, and middle ear cavities are clear. IMPRESSION: No acute intracranial abnormality. ACT 112: Negative or not required by law. The above report was generated using voice recognition software. It may contain grammatical, syntax or spelling errors. Electronically signed by: Feroz Elliott M.D. 08/10/2022 8:36 PM Code Status & VTE Plan Code Status Full Code. Supervising Physician Co-Signing Physician Notes Attending addendum: I have physically seen this patient, have supervised the NILDA's activities, and agree with the H&P unless as otherwise noted. Assessment and Plan: Sepsis of unknown source- Follow blood culture and sensitivity Status post 3.5 L IV fluid in ED Continue rehydration with IV fluids Status post cefepime 2 g IV from the ED, and will hold on any further antibiotics at this time UA, urine culture sensitivity, UDS, tickborne labs labs and peripheral smear pending Acute kidney injury/hyperkalemia- Creatinine 2.6 with baseline 1.2 Received 3.5 L of IV fluids in ED, D50 and 10 regular insulin IV, and calcium gluconate 1 g IV Repeat laboratories determine further treatment Polycythemia- Hemoglobin 19.9, likely elevated in part due to dehydration, as there is increased WBCs and platelet levels as well. Repeat laboratories after above hydration Reportedly has been phlebotomized in the past, but has not been consistently treated He is at risk for potential infarct issues of brain and kidneys. Consult hematology for further recommendations Remaining orders and notations as noted PG Care Time/CCT Total # of Minutes Spent Total Time Spent with Patient: Total time spent is greater than 50% in coordination of care (as documented) at patient's floor/unit and/or counseling patient: Coding Level of Care Code 52789 Initial Inpt Care Lvl 3 Diagnoses Sepsis A41.9 ENRRIQUE (acute kidney injury) N17.9 Hyperkalemia E87.5 Elevated troponin R77.8 Polycythemia D75.1 REBECCA on CPAP G47.33; Z99.89 GERD (gastroesophageal reflux disease) K21.9 Anxiety and depression F41.9; F32.A ADHD F90.9 Congenital glaucoma Q15.0
[2022-08-10 21:06] LABS: Base Excess VBG 0.7 mEq/L; HCO3 VBG 24 mmol/L; Oxygen Saturation VBG 78.5 %; PCO2 VBG 35 mmHg (38-50); PO2 VBG 49 mmHg; pH VBG 7.45 (7.36-7.41)
[2022-08-10] MEDS ORDERED: SODIUM CHLORIDE 0.9% 1000ML 1,000 ML IV SCH (21:15)
[2022-08-10 22:09] LABS: Appearance Urine Turbid (Clear); Bacteria Urine Automated Negative (Negative); Blood Urine Trace (Negative); Color Urine Dark Yellow; Epithelial Cell Urine Auto >30 /lpf (0-5); Glucose Urine UA 1+ (Negative); Ketones Urine Trace (Negative); Leukocyte Esterase Urine 1+ (Negative); Nitrite Urine Positive (Negative); Protein Urine 1+ (Negative); RBC Urine Automated 0-4 /hpf (0-4); Specific Gravity Urine 1.029 (1.000-1.030); Urobilinogen Urine Negative (Negative)
[2022-08-10 22:11] LABS: Bilirubin Urine 2+ (Negative)
[2022-08-10 22:24] LABS: Cast Urine Automated >30 /lpf (0-5)
[2022-08-10 22:25] LABS: Amphetamines+Metham, Urine Pos (Neg); Barbiturates, Urine Neg (Neg); Benzodiazepine, Urine Neg (Neg); Cocaine, Urine Neg (Neg); MDMA (Ecstacy), Urine Neg (Neg); Methadone, Urine Neg (Neg); Opiate, Urine Neg (Neg); Phencyclidine, Urine Neg (Neg)
[2022-08-10 22:32] LABS: Procalcitonin < 0.05 ng/ml (0-0.5)
[2022-08-10 22:34] LABS: Base Excess ABG -0.4 mEq/L (-9-1.8); HCO3 ABG 23 mmol/L (19-24); Oxygen Saturation ABG 98.6 % (90-95); PCO2 ABG 33 mmHg (35-46); PO2 ABG 96 mmHg (80-95); pH ABG 7.45 (7.35-7.45)
[2022-08-10 22:38] LABS: Lyme Ab IgG w/WB Rflx Negative (Negative); Lyme Ab IgM w/WB Rflx Negative (Negative)
[2022-08-10 22:55] LABS: Allen Test POS (Pos)
[2022-08-10] MEDS ORDERED: ACETAMINOPHEN 325 MG TAB PO PRN (23:19)
[2022-08-10] MEDS ORDERED: ALBUTEROL HFA 8 GM INHALER INH PRN (23:19)
[2022-08-10] MEDS ORDERED: POLYETHYLENE (MIRALAX) 17 GM PACK PO PRN (23:19)
[2022-08-10] MEDS ORDERED: ONDANSETRON INJ 2 MG/ML 2 ML VIAL IV PRN (23:19)
[2022-08-10] MEDS ORDERED: ALUMINUM/MAGNESIUM SUSP 30 ML UDC PO PRN (23:19)
[2022-08-11 00:22] LABS: BUN Creatinine Ratio 15.1 (10-20); Calcium 8.4 mg/dl (8.5-10.1); Creatinine Clr Calc Pharmacy 50.8 ml/min; Est GFR (African American) 43.8 ml/min; Est GFR (Non-African American) 37.8 ml/min; Potassium 5.1 mmol/L (3.5-5.1)
[2022-08-11 00:28] LABS: Anion Gap 10 (3-11); BUN Creatinine Ratio 13.8 (10-20); Blood Urea Nitrogen 34 mg/dl (6-23); Calcium 8.1 mg/dl (8.5-10.1); Carbon Dioxide 21 mmol/L (21-32); Chloride 110 mmol/L (98-107); Creatinine Clr Calc Pharmacy 43.8 ml/min; Est GFR (African American) 36.6 ml/min; Est GFR (Non-African American) 31.6 ml/min; Glucose 121 mg/dl (70-99(Fasting)); Sodium 141 mmol/L (136-145)
[2022-08-11] MEDS: LACTATED RINGER'S 1,000 ML IV SCH ×3 (00:29→17:17)
--- NOTE | 2022-08-11 05:50 | Consultation ---
Date of Consultation August 11, 2022 Assessment & Plan (1) Polycythemia: This is a preliminary consultation, a full consultation will follow later this evening. Combination of elevated hemoglobin and platelets certainly suggest the possibility for myeloproliferative disorder there is a likely exacerbation with his dehydration. Would be most helpful if we can track down status JAK2 mutation assessment but I would avoid immediate phlebotomy and cytotoxic therapy to not compromise him in his acute situation. We will see how his hemoglobin stabilizes after hydration. Would give vigorous DVT prophylaxis since that would be the greatest immediate risk from his erythrocytosis if this is indeed related to polycythemia vera Plan I will be able to more fully assess the patient at the end of the day and will provide a more complete consultation at that time History of Present Illness Reason for Consultation: Patient with erythrocytosis in the context of sepsis and dehydration but who has had a chronic history of erythrocytosis prior to this Attending Physician: Shiraz Mclaughlin MD Allergies Allergy/AdvReac Type Severity Reaction Status Date / Time iodine Allergy Severe Anaphylaxis Verified 08/22/18 09:30 codeine Allergy Intermediate Rash Verified 08/22/18 09:30 Home Medications Medication Instructions Recorded Confirmed Type albuterol sulfate 90 mcg/actuation 1 puff inhalation QID PRN SOB 08/09/18 07/29/20 History aerosol inhaler omeprazole magnesium 20 mg 20 mg PO BID 08/09/18 07/29/20 History tablet,delayed release (Prilosec OTC) bupropion HCl 200 mg tablet,12 hr 200 mg PO BID 07/29/20 07/29/20 History sustained-release dextroamphetamine sulfate 15 mg 30 mg PO BID 07/29/20 07/29/20 History capsule,extended release aspirin 81 mg tablet,delayed 81 mg PO DAILY #90 tabs 07/31/20 Rx release Patient History Medical History (Updated 08/11/22 @ 02:03 by Mani De La Cruz) Asthma Congenital glaucoma Obesity (BMI 30.0-34.9) Surgical History H/O wisdom tooth extraction History of adenoidectomy History of colonoscopy History of esophagogastroduodenoscopy (EGD) History of tonsillectomy Family History Denies family history of Myocardial infarction Stroke Social History Smoking Status: Never smoker Second Hand Exposure: No; Hx Alcohol Use: Yes Alcohol type: beer, wine and hard liquor Alcohol Intake Frequency Comment: 2-3 beers or drinks a week Hx Substance Use: No Preferred Language: Japanese Communication Ability: Effective Shop Fitter Required: No Beliefs That Will Affect Care: None Current Living Situation: Spouse and Family Current Living Situation Comment: Pt lives at home with spouse and son Other Information That Helps Us Care for You: No Feels Safe at Home: Yes Safety Concerns: Feels Safe At This Time Assistive Devices: Glasses Results & Data ([facility]) Vital Signs (Past 12 Hours) Vital Signs Temp Pulse Pulse Resp BP BP Pulse Ox 08/11/22 04:10 25 H 08/11/22 02:39 36.8 C 122 H 22 125/67 97 08/11/22 00:37 110 H 28 H 96 08/11/22 00:16 08/10/22 23:52 111 H 17 96 08/10/22 23:33 36.7 C 106 H 24 135/68 96 08/10/22 22:57 110 H 36 H 104/66 99 08/10/22 22:00 117 H 30 H 110/45 L 99 08/10/22 21:19 116 H 34 H 108/63 95 08/10/22 20:41 115 H 32 H 112/71 97 08/10/22 19:56 96 08/10/22 19:56 36.9 C 117 H 38 H 138/60 96 08/10/22 19:49 36.9 C 122 H 28 H 126/70 97 08/10/22 19:22 126 H 30 H 126/70 99 O2 Del Method FiO2 08/11/22 04:10 21 08/11/22 02:39 CPAP 08/11/22 00:37 21 08/11/22 00:16 Room Air 08/10/22 23:52 21 08/10/22 23:33 Room Air 08/10/22 22:57 Room Air 08/10/22 22:00 Room Air 08/10/22 21:19 08/10/22 20:41 Room Air 08/10/22 19:56 Room Air 08/10/22 19:56 Room Air 08/10/22 19:49 Room Air 08/10/22 19:22 PG Care Time/CCT Total # of Minutes Spent Total Time Spent with Patient: Total time spent is greater than 50% in coordination of care (as documented) at patient's floor/unit and/or counseling patient: Coding Level of Care Code None Diagnoses Polycythemia D75.1
[2022-08-11 06:37] LABS: Basophils # (auto) 0.06 K/uL (0-0.2); Basophils % (auto) 0.4 %; Hematocrit (blood only) 51.3 % (40.1-51.0); Hemoglobin 17.3 g/dl (14.0-18.0); Immature Granulocytes # (auto) 0.09 K/uL (0.00-0.02); Immature Granulocytes % (auto) 0.6 %; Lymphocytes # (auto) 1.68 K/uL (1.2-3.4); Lymphocytes % (auto) 11.1 %; Mean Corpuscular Hgb Conc 33.7 g/dL (32.0-36.0); Mean Platelet Volume 9.4 fL (9.4-12.4); Monocytes # (auto) 1.45 K/uL (0.24-0.82); Monocytes % (auto) 9.6 %; Neutrophils # (auto) 11.79 K/uL (1.4-6.5); Neutrophils % (auto) 78.3 %; Platelet Count 442 K/uL (130-400); RDW Coefficient of Variation 18.6 % (11.5-14.5); RDW Standard Deviation 50.6 fL (36.4-46.3); Red Blood Count 6.18 M/uL (4.63-6.08); White Blood Count 15.07 K/ul (4.8-10.8)
[2022-08-11 06:46] LABS: INR 1.4 (0.9-1.1); Prothrombin Time 14.5 Seconds (9.0-12.0)
[2022-08-11 07:18] LABS: Albumin Globulin Ratio 1.3 (0.9-2); Albumin Level 3.3 gm/dl (3.4-5.0); BUN Creatinine Ratio 17.9 (10-20); Bilirubin,Total 1.7 mg/dl (0.2-1.0); Calcium 8.3 mg/dl (8.5-10.1); Creatinine Clr Calc Pharmacy 56.7 ml/min; Est GFR (Non-African American) 43.1 ml/min; Globulin 2.6 gm/dl (2.5-4.0); Magnesium 1.8 mg/dl (1.7-2.4); Potassium 4.9 mmol/L (3.5-5.1); Total Protein 5.9 gm/dl (6.0-8.3)
[2022-08-11] MEDS: ASPIRIN 81 MG ECTAB PO SCH (09:24)
[2022-08-11] MEDS: buPROPion SR 100 MG TABCR PO SCH ×2 (09:25→20:27)
[2022-08-11] MEDS: PANTOprazole 40 MG TAB PO SCH ×2 (09:25→20:28)
[2022-08-11] MEDS: cefTRIAXone SODIUM 2,000 MG in DEXTROSE 5% 50 ML IV SCH (11:40)
--- NOTE | 2022-08-11 12:49 | Hospitalist Progress Note ---
Date of Service August 11, 2022 Assessment & Plan (1) SIRS (systemic inflammatory response syndrome): Plan: patient presented with tachycardia, tachypnea, elevated lactate, elevated WBC count, etc. infectious source not identified, however COVID/RSV/flu negative u/a dirty but urine culture thus far negative no obvious tick bite RUQ u/s obtained due to abnormal LFTs - no biliary tract disease I am unclear what caused his presentation and his SIRS see below follow cultures (2) Acute metabolic encephalopathy: Plan: improving 2nd to ENRRIQUE/hyperkalemia/lactic acidosis? given his headache, word finding difficulties, etc I obtained MRI brain, MRA brain, and MRV. neg for acute CVA, aneurysm, dural thrombosis tox screen + for amphetamines but he takes such for ADD nothing else on tox screen check cortisol and TSH/FT4 in am ammonia level today wnl lactate has normalized (3) Lactic acidosis: Plan: severely volume contracted at time of presentation cause of copious vomiting very uncertain but has resolved with supportive care only lactate has normalized (4) Elevated INR: Plan: INR 1.2 in 2019 now 1.4 RUQ u/s - mildly enlared liver/fatty liver but that doesn't explain the INR platelets not low thus no TTP, etc vit K deficiency? other? vit K 5mg PO x 1 repeat INR am (5) Elevated bilirubin: Plan: etiology? Gilbert's? no evidence of hemolysis RUQ u/s without biliary tract disease cont supportive care LFTs in am (6) ENRRIQUE (acute kidney injury): Plan: improved s/p copious IV fluids. prerenal etioogy -- volume contraction from emesis likely led to ENRRIQUE. cont IV fluids. serial BMP. no obstruction on CT a/p. (7) Hyperkalemia: Plan: 2nd to ENRRIQUE K level now normal (8) Elevated troponin: Plan: myocardial demand ischemia in setting of tachycardia, ENRRIQUE, etc. no symptoms to suggest ACS. echo with nl LV Fx and normal wall motion. (9) Polycythemia: Plan: Hgb 19.9 at presentation does have chronic polycythemia and has had negative work-up for PCV in the past including a negative Jak2 mutation in September 2020 per 's report Hb improved s/p IV fluids overnight thus, did have an element of hemoconcentration on top of chronic polycythemia heme/onc consult appreciated -- polycythemia 2nd REBECCA?? (10) REBECCA on CPAP: Plan: cont CPAP at night. compliant w/ such at home. (11) GERD (gastroesophageal reflux disease): Plan: Continue PPI (12) Anxiety and depression: Plan: Continue Wellbutrin. (13) ADHD: Plan: Hold dextroamphetamine during hospitalization. Tox screen shows evidence of this med. PDMP confirms chronic usage of this med. 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 (15) Weight loss: Plan: etiology?? check TSH/FT4 in am. May need outpatient EGD/colonoscopy for additional w/u. Plan very complicated presentation without clear-cut diagnosis that ties together all presenting symptoms & issues will continue w/u complex care coordination today 65 minutes Admission and Anticipated Discharge Date Admission Date: August 10, 2022 Subjective tele - sinus tach overnight per nurses - this am was somewhat sleepy/somnolent; by lunch-time was much more awake, alert, able to carry a conversation I saw patient right before lunch His was present he feels better today but still feels confused reports ongoing word finding difficulties but improved from prior he complains of occipital headache he does not typically have headaches denies any recent illness denies recent travel denies any recent chemical exposures, tick bites, sick contacts he and his report several weeks of excessive fatigue despite good compliance with CPAP at home states that all symptoms started abruptly yesterday while at work had copious episodes of vomiting no emesis since then Review of Systems Review of Systems: gen - no fevers or chills/rigors; fatigue; has had weight loss recently HENT - no sinus congestion, no sore throat cv - no cp pulm - no dyspnea GI - nausea/emesis resolved; no abd pain - no LUTs musculo - no myalgias Physical Exam Physical Exam: gen - mild thought blocking/stuttering but able to talk in complete sentences; no dysarthria; no aphasia; looks tired skin - dejan complexion of face; darkly tanned elsewhere mouth - MMM neck - no JVD; no meningismus or nuccal rigidity CV - tachy, s1 s2, no murmur lungs - CTA b/l abd - soft, NT, ND, BS+, no HSM ext - no edema, pulses 2+ b/l neuro - CN 3-12 intact; strength 5/5 x 4 exts; no asterixis or tremor; finger/nose/finger w/o ataxia b/l; sensation intact to light touch x 4 exts; DTRs brisk, 3+ b/l psych - a/o x 3 this am Results & Data Results & Data ([facility]) Vital Signs (Past 12 Hours) Vital Signs Temp Pulse Pulse Resp BP Pulse Ox O2 Del Method 08/11/22 12:11 117 H 08/11/22 12:06 36.7 C 103 H 18 113/56 L 95 Room Air 08/11/22 08:08 37.1 C 111 H 20 125/69 97 Room Air 08/11/22 04:10 25 H 08/11/22 02:39 36.8 C 122 H 22 125/67 97 CPAP FiO2 08/11/22 12:11 08/11/22 12:06 08/11/22 08:08 08/11/22 04:10 21 08/11/22 02:39 Laboratory Results Laboratory Results - last 24 hr 08/10/22 08/10/22 08/10/22 19:07 19:07 19:07 WBC 16.91 H RBC 6.98 H Hgb 19.9 H POC Hgb Hct 58.3 H POC Hct MCV 83.5 MCH 28.5 MCHC 34.1 RDW Std Deviation 50.4 H RDW Coeff of Ron 18.7 H Plt Count 510 H MPV 9.3 L Immature Gran % (Auto) 0.6 Neut % (Auto) 76.7 Lymph % (Auto) 13.8 [place] % (Auto) 8.3 Eos % (Auto) 0.1 Baso % (Auto) 0.5 Neut # (Auto) 12.99 H Lymph # (Auto) 2.33 [place] # (Auto) 1.40 H Eos # (Auto) 0.01 Baso # (Auto) 0.08 Immature Gran # (Auto) 0.10 H ESR PT INR APTT PTT Ratio ABG pH ABG pCO2 ABG pO2 ABG HCO3 ABG O2 Saturation ABG Base Excess Navneet Test VBG pH VBG pCO2 VBG pO2 VBG HCO3 VBG O2 Saturation VBG Base Excess Oxygen Given POC Sodium Sodium 138 POC Potassium Potassium 6.5 H* POC Chloride Chloride 101 Carbon Dioxide 21 POC Total CO2 Anion Gap 16 H POC Anion Gap POC BUN BUN 33 H Creatinine 2.64 H POC Creatinine Est Cr Clr Drug Dosing 40.8 Est GFR ( Amer) 33.6 Est GFR (Non-Af Amer) 29.0 BUN/Creatinine Ratio 12.5 Glucose 142 H POC Glucose (other) Lactate Calcium 10.1 POC Ioniz Calcium Avelina Magnesium 1.9 Total Bilirubin 1.8 H Direct Bilirubin 0.9 H AST 28 ALT 27 Alkaline Phosphatase 52 Total Creatine Kinase 288 H Troponin I High Sens 61.1 H* C-Reactive Protein Total Protein 7.4 Albumin 4.2 Globulin Albumin/Globulin Ratio Lipase 72 Procalcitonin Urine Color Urine Appearance Urine pH Ur Specific [place] Urine Protein Urine Glucose (UA) Urine Ketones Urine Blood Urine Nitrite Urine Bilirubin Urine Urobilinogen Ur Leukocyte Esterase Urine WBC (Auto) Urine RBC (Auto) U Hyaline Cast (Auto) U Epithel Cells (Auto) Urine Bacteria (Auto) Ur Renal Epithelial Cell Urine Yeast Urine Opiates Screen Ur Methadone, Qual Urine Barbiturates Ur Phencyclidine (PCP) U Amphetamines Confirm U Amphetamin/Meth Scrn U Methamphetamin Confrm MDMA (Ecstasy) Screen U Benzodiazepines Scrn Ur Cocaine Metabolite U Marijuana (THC) Screen Drug Screen Comment Ethyl Alcohol mg/dL < 10.0 Anaplasma Smear A. phagocytophilum DNA Babesia Smear Babesia microti DNA PCR Lyme Disease IgG Ab Lyme Disease IgM Ab SARS-CoV-2 (PCR) Influenza Type A (PCR) Influenza Type B (PCR) RSV (RT-PCR) 08/10/22 08/10/22 08/10/22 19:15 20:02 20:05 WBC RBC Hgb POC Hgb 21.4 H* Hct POC Hct 63 H* MCV MCH MCHC RDW Std Deviation RDW Coeff of Ron Plt Count MPV Immature Gran % (Auto) Neut % (Auto) Lymph % (Auto) [place] % (Auto) Eos % (Auto) Baso % (Auto) Neut # (Auto) Lymph # (Auto) [place] # (Auto) Eos # (Auto) Baso # (Auto) Immature Gran # (Auto) ESR PT INR APTT PTT Ratio ABG pH ABG pCO2 ABG pO2 ABG HCO3 ABG O2 Saturation ABG Base Excess Navneet Test VBG pH VBG pCO2 VBG pO2 VBG HCO3 VBG O2 Saturation VBG Base Excess Oxygen Given POC Sodium 137 Sodium POC Potassium 6.2 H* Potassium POC Chloride 105 Chloride Carbon Dioxide POC Total CO2 21 L Anion Gap POC Anion Gap 18.0 POC BUN 35 H BUN Creatinine POC Creatinine 2.8 H Est Cr Clr Drug Dosing Est GFR ( Amer) Est GFR (Non-Af Amer) BUN/Creatinine Ratio Glucose POC Glucose (other) 147 H Lactate 3.7 H* Calcium POC Ioniz Calcium Avelina 0.77 L* Magnesium Total Bilirubin Direct Bilirubin AST ALT Alkaline Phosphatase Total Creatine Kinase Troponin I High Sens C-Reactive Protein Total Protein Albumin Globulin Albumin/Globulin Ratio Lipase Procalcitonin Urine Color Urine Appearance Urine pH Ur Specific [place] Urine Protein Urine Glucose (UA) Urine Ketones Urine Blood Urine Nitrite Urine Bilirubin Urine Urobilinogen Ur Leukocyte Esterase Urine WBC (Auto) Urine RBC (Auto) U Hyaline Cast (Auto) U Epithel Cells (Auto) Urine Bacteria (Auto) Ur Renal Epithelial Cell Urine Yeast Urine Opiates Screen Ur Methadone, Qual Urine Barbiturates Ur Phencyclidine (PCP) U Amphetamines Confirm U Amphetamin/Meth Scrn U Methamphetamin Confrm MDMA (Ecstasy) Screen U Benzodiazepines Scrn Ur Cocaine Metabolite U Marijuana (THC) Screen Drug Screen Comment Ethyl Alcohol mg/dL Anaplasma Smear A. phagocytophilum DNA Babesia Smear Babesia microti DNA PCR Lyme Disease IgG Ab Lyme Disease IgM Ab SARS-CoV-2 (PCR) NEGATIVE Influenza Type A (PCR) Negative Influenza Type B (PCR) Negative RSV (RT-PCR) Negative 08/10/22 08/10/22 08/10/22 20:26 20:35 21:18 WBC RBC Hgb POC Hgb Hct POC Hct MCV MCH MCHC RDW Std Deviation RDW Coeff of Ron Plt Count MPV Immature Gran % (Auto) Neut % (Auto) Lymph % (Auto) [place] % (Auto) Eos % (Auto) Baso % (Auto) Neut # (Auto) Lymph # (Auto) [place] # (Auto) Eos # (Auto) Baso # (Auto) Immature Gran # (Auto) ESR PT 13.7 H INR 1.3 H APTT 20.7 L PTT Ratio 0.8 ABG pH ABG pCO2 ABG pO2 ABG HCO3 ABG O2 Saturation ABG Base Excess Navneet Test VBG pH 7.45 H VBG pCO2 35 L VBG pO2 49 VBG HCO3 24 VBG O2 Saturation 78.5 VBG Base Excess 0.7 Oxygen Given POC Sodium Sodium POC Potassium Potassium POC Chloride Chloride Carbon Dioxide POC Total CO2 Anion Gap POC Anion Gap POC BUN BUN Creatinine POC Creatinine Est Cr Clr Drug Dosing Est GFR ( Amer) Est GFR (Non-Af Amer) BUN/Creatinine Ratio Glucose POC Glucose (other) Lactate Calcium POC Ioniz Calcium Avelina Magnesium Total Bilirubin Direct Bilirubin AST ALT Alkaline Phosphatase Total Creatine Kinase Troponin I High Sens C-Reactive Protein Total Protein Albumin Globulin Albumin/Globulin Ratio Lipase Procalcitonin Urine Color Dark Yellow Urine Appearance Turbid A Urine pH 5.0 Ur Specific [place] 1.029 Urine Protein 1+ H Urine Glucose (UA) 1+ H Urine Ketones Trace H Urine Blood Trace H Urine Nitrite Positive A Urine Bilirubin 2+ H Urine Urobilinogen Negative Ur Leukocyte Esterase 1+ H Urine WBC (Auto) 10-30 H Urine RBC (Auto) 0-4 U Hyaline Cast (Auto) >30 H U Epithel Cells (Auto) >30 H Urine Bacteria (Auto) Negative Ur Renal Epithelial Cell Not Reportable Urine Yeast Not Reportable Urine Opiates Screen Ur Methadone, Qual Urine Barbiturates Ur Phencyclidine (PCP) U Amphetamines Confirm U Amphetamin/Meth Scrn U Methamphetamin Confrm MDMA (Ecstasy) Screen U Benzodiazepines Scrn Ur Cocaine Metabolite U Marijuana (THC) Screen Drug Screen Comment Ethyl Alcohol mg/dL Anaplasma Smear A. phagocytophilum DNA Babesia Smear Babesia microti DNA PCR Lyme Disease IgG Ab Lyme Disease IgM Ab SARS-CoV-2 (PCR) Influenza Type A (PCR) Influenza Type B (PCR) RSV (RT-PCR) 08/10/22 08/10/22 08/10/22 21:18 21:18 21:29 WBC RBC Hgb POC Hgb Hct POC Hct MCV MCH MCHC RDW Std Deviation RDW Coeff of Ron Plt Count MPV Immature Gran % (Auto) Neut % (Auto) Lymph % (Auto) [place] % (Auto) Eos % (Auto) Baso % (Auto) Neut # (Auto) Lymph # (Auto) [place] # (Auto) Eos # (Auto) Baso # (Auto) Immature Gran # (Auto) ESR < 1 PT INR APTT PTT Ratio ABG pH ABG pCO2 ABG pO2 ABG HCO3 ABG O2 Saturation ABG Base Excess Navneet Test VBG pH VBG pCO2 VBG pO2 VBG HCO3 VBG O2 Saturation VBG Base Excess Oxygen Given POC Sodium Sodium POC Potassium Potassium POC Chloride Chloride Carbon Dioxide POC Total CO2 Anion Gap POC Anion Gap POC BUN BUN Creatinine POC Creatinine Est Cr Clr Drug Dosing Est GFR ( Amer) Est GFR (Non-Af Amer) BUN/Creatinine Ratio Glucose POC Glucose (other) Lactate Calcium POC Ioniz Calcium Avelina Magnesium Total Bilirubin Direct Bilirubin AST ALT Alkaline Phosphatase Total Creatine Kinase Troponin I High Sens C-Reactive Protein Total Protein Albumin Globulin Albumin/Globulin Ratio Lipase Procalcitonin Urine Color Urine Appearance Urine pH Ur Specific [place] Urine Protein Urine Glucose (UA) Urine Ketones Urine Blood Urine Nitrite Urine Bilirubin Urine Urobilinogen Ur Leukocyte Esterase Urine WBC (Auto) Urine RBC (Auto) U Hyaline Cast (Auto) U Epithel Cells (Auto) Urine Bacteria (Auto) Ur Renal Epithelial Cell Urine Yeast Urine Opiates Screen Neg Ur Methadone, Qual Neg Urine Barbiturates Neg Ur Phencyclidine (PCP) Neg U Amphetamines Confirm Pending U Amphetamin/Meth Scrn Pos H U Methamphetamin Confrm Pending MDMA (Ecstasy) Screen Neg U Benzodiazepines Scrn Neg Ur Cocaine Metabolite Neg U Marijuana (THC) Screen Neg Drug Screen Comment Pending Ethyl Alcohol mg/dL Anaplasma Smear A. phagocytophilum DNA Babesia Smear Babesia microti DNA PCR Lyme Disease IgG Ab Lyme Disease IgM Ab SARS-CoV-2 (PCR) Influenza Type A (PCR) Influenza Type B (PCR) RSV (RT-PCR) 08/10/22 08/10/22 08/10/22 21:29 21:29 21:29 WBC RBC Hgb POC Hgb Hct POC Hct MCV MCH MCHC RDW Std Deviation RDW Coeff of Ron Plt Count MPV Immature Gran % (Auto) Neut % (Auto) Lymph % (Auto) [place] % (Auto) Eos % (Auto) Baso % (Auto) Neut # (Auto) Lymph # (Auto) [place] # (Auto) Eos # (Auto) Baso # (Auto) Immature Gran # (Auto) ESR PT INR APTT PTT Ratio ABG pH ABG pCO2 ABG pO2 ABG HCO3 ABG O2 Saturation ABG Base Excess Navneet Test VBG pH VBG pCO2 VBG pO2 VBG HCO3 VBG O2 Saturation VBG Base Excess Oxygen Given POC Sodium Sodium POC Potassium Potassium POC Chloride Chloride Carbon Dioxide POC Total CO2 Anion Gap POC Anion Gap POC BUN BUN Creatinine POC Creatinine Est Cr Clr Drug Dosing Est GFR ( Amer) Est GFR (Non-Af Amer) BUN/Creatinine Ratio Glucose POC Glucose (other) Lactate Calcium POC Ioniz Calcium Avelina Magnesium Total Bilirubin Direct Bilirubin AST ALT Alkaline Phosphatase Total Creatine Kinase Troponin I High Sens C-Reactive Protein < 0.50 Total Protein Albumin Globulin Albumin/Globulin Ratio Lipase Procalcitonin < 0.05 Urine Color Urine Appearance Urine pH Ur Specific [place] Urine Protein Urine Glucose (UA) Urine Ketones Urine Blood Urine Nitrite Urine Bilirubin Urine Urobilinogen Ur Leukocyte Esterase Urine WBC (Auto) Urine RBC (Auto) U Hyaline Cast (Auto) U Epithel Cells (Auto) Urine Bacteria (Auto) Ur Renal Epithelial Cell Urine Yeast Urine Opiates Screen Ur Methadone, Qual Urine Barbiturates Ur Phencyclidine (PCP) U Amphetamines Confirm U Amphetamin/Meth Scrn U Methamphetamin Confrm MDMA (Ecstasy) Screen U Benzodiazepines Scrn Ur Cocaine Metabolite U Marijuana (THC) Screen Drug Screen Comment Ethyl Alcohol mg/dL Anaplasma Smear See Comment A. phagocytophilum DNA Babesia Smear See Comment Babesia microti DNA PCR Lyme Disease IgG Ab Negative Lyme Disease IgM Ab Negative SARS-CoV-2 (PCR) Influenza Type A (PCR) Influenza Type B (PCR) RSV (RT-PCR) 08/10/22 08/10/22 08/10/22 21:29 21:29 21:29 WBC RBC Hgb POC Hgb Hct POC Hct MCV MCH MCHC RDW Std Deviation RDW Coeff of Ron Plt Count MPV Immature Gran % (Auto) Neut % (Auto) Lymph % (Auto) [place] % (Auto) Eos % (Auto) Baso % (Auto) Neut # (Auto) Lymph # (Auto) [place] # (Auto) Eos # (Auto) Baso # (Auto) Immature Gran # (Auto) ESR PT INR APTT PTT Ratio ABG pH ABG pCO2 ABG pO2 ABG HCO3 ABG O2 Saturation ABG Base Excess Navneet Test VBG pH VBG pCO2 VBG pO2 VBG HCO3 VBG O2 Saturation VBG Base Excess Oxygen Given POC Sodium Sodium 141 POC Potassium Potassium TNP POC Chloride Chloride 110 H Carbon Dioxide 21 POC Total CO2 Anion Gap 10 POC Anion Gap POC BUN BUN 34 H Creatinine 2.46 H POC Creatinine Est Cr Clr Drug Dosing 43.8 Est GFR ( Amer) 36.6 Est GFR (Non-Af Amer) 31.6 BUN/Creatinine Ratio 13.8 Glucose 121 H POC Glucose (other) Lactate Calcium 8.1 L D POC Ioniz Calcium Avelina Magnesium Total Bilirubin Direct Bilirubin AST ALT Alkaline Phosphatase Total Creatine Kinase Troponin I High Sens C-Reactive Protein Total Protein Albumin Globulin Albumin/Globulin Ratio Lipase Procalcitonin Urine Color Urine Appearance Urine pH Ur Specific [place] Urine Protein Urine Glucose (UA) Urine Ketones Urine Blood Urine Nitrite Urine Bilirubin Urine Urobilinogen Ur Leukocyte Esterase Urine WBC (Auto) Urine RBC (Auto) U Hyaline Cast (Auto) U Epithel Cells (Auto) Urine Bacteria (Auto) Ur Renal Epithelial Cell Urine Yeast Urine Opiates Screen Ur Methadone, Qual Urine Barbiturates Ur Phencyclidine (PCP) U Amphetamines Confirm U Amphetamin/Meth Scrn U Methamphetamin Confrm MDMA (Ecstasy) Screen U Benzodiazepines Scrn Ur Cocaine Metabolite U Marijuana (THC) Screen Drug Screen Comment Ethyl Alcohol mg/dL Anaplasma Smear A. phagocytophilum DNA Pending Babesia Smear Babesia microti DNA PCR Pending Lyme Disease IgG Ab Lyme Disease IgM Ab SARS-CoV-2 (PCR) Influenza Type A (PCR) Influenza Type B (PCR) RSV (RT-PCR) 08/10/22 08/10/22 08/10/22 22:20 22:26 23:40 WBC RBC Hgb POC Hgb Hct POC Hct MCV MCH MCHC RDW Std Deviation RDW Coeff of Ron Plt Count MPV Immature Gran % (Auto) Neut % (Auto) Lymph % (Auto) [place] % (Auto) Eos % (Auto) Baso % (Auto) Neut # (Auto) Lymph # (Auto) [place] # (Auto) Eos # (Auto) Baso # (Auto) Immature Gran # (Auto) ESR PT INR APTT PTT Ratio ABG pH 7.45 ABG pCO2 33 L ABG pO2 96 H ABG HCO3 23 ABG O2 Saturation 98.6 H ABG Base Excess -0.4 Navneet Test POS VBG pH VBG pCO2 VBG pO2 VBG HCO3 VBG O2 Saturation VBG Base Excess Oxygen Given ROOM AIR POC Sodium Sodium 140 POC Potassium Potassium 5.1 D POC Chloride Chloride 107 Carbon Dioxide 23 POC Total CO2 Anion Gap 10 POC Anion Gap POC BUN BUN 32 H Creatinine 2.12 H D POC Creatinine Est Cr Clr Drug Dosing 50.8 Est GFR ( Amer) 43.8 Est GFR (Non-Af Amer) 37.8 BUN/Creatinine Ratio 15.1 Glucose 93 POC Glucose (other) Lactate 2.7 H* Calcium 8.4 L POC Ioniz Calcium Avelina Magnesium Total Bilirubin Direct Bilirubin AST ALT Alkaline Phosphatase Total Creatine Kinase Troponin I High Sens C-Reactive Protein Total Protein Albumin Globulin Albumin/Globulin Ratio Lipase Procalcitonin Urine Color Urine Appearance Urine pH Ur Specific [place] Urine Protein Urine Glucose (UA) Urine Ketones Urine Blood Urine Nitrite Urine Bilirubin Urine Urobilinogen Ur Leukocyte Esterase Urine WBC (Auto) Urine RBC (Auto) U Hyaline Cast (Auto) U Epithel Cells (Auto) Urine Bacteria (Auto) Ur Renal Epithelial Cell Urine Yeast Urine Opiates Screen Ur Methadone, Qual Urine Barbiturates Ur Phencyclidine (PCP) U Amphetamines Confirm U Amphetamin/Meth Scrn U Methamphetamin Confrm MDMA (Ecstasy) Screen U Benzodiazepines Scrn Ur Cocaine Metabolite U Marijuana (THC) Screen Drug Screen Comment Ethyl Alcohol mg/dL Anaplasma Smear A. phagocytophilum DNA Babesia Smear Babesia microti DNA PCR Lyme Disease IgG Ab Lyme Disease IgM Ab SARS-CoV-2 (PCR) Influenza Type A (PCR) Influenza Type B (PCR) RSV (RT-PCR) 08/11/22 08/11/22 08/11/22 06:01 06:01 06:01 WBC 15.07 H RBC 6.18 H Hgb 17.3 POC Hgb Hct 51.3 H POC Hct MCV 83.0 MCH 28.0 MCHC 33.7 RDW Std Deviation 50.6 H RDW Coeff of Ron 18.6 H Plt Count 442 H MPV 9.4 Immature Gran % (Auto) 0.6 Neut % (Auto) 78.3 Lymph % (Auto) 11.1 [place] % (Auto) 9.6 Eos % (Auto) 0.0 Baso % (Auto) 0.4 Neut # (Auto) 11.79 H Lymph # (Auto) 1.68 [place] # (Auto) 1.45 H Eos # (Auto) 0.00 Baso # (Auto) 0.06 Immature Gran # (Auto) 0.09 H ESR PT 14.5 H INR 1.4 H APTT PTT Ratio ABG pH ABG pCO2 ABG pO2 ABG HCO3 ABG O2 Saturation ABG Base Excess Navneet Test VBG pH VBG pCO2 VBG pO2 VBG HCO3 VBG O2 Saturation VBG Base Excess Oxygen Given POC Sodium Sodium 138 POC Potassium Potassium 4.9 POC Chloride Chloride 106 Carbon Dioxide 21 POC Total CO2 Anion Gap 11 POC Anion Gap POC BUN BUN 34 H Creatinine 1.90 H POC Creatinine Est Cr Clr Drug Dosing 56.7 Est GFR ( Amer) 50.0 Est GFR (Non-Af Amer) 43.1 BUN/Creatinine Ratio 17.9 Glucose 143 H POC Glucose (other) Lactate Calcium 8.3 L POC Ioniz Calcium Avelina Magnesium 1.8 Total Bilirubin 1.7 H Direct Bilirubin AST 30 ALT 21 Alkaline Phosphatase 38 Total Creatine Kinase 441 H Troponin I High Sens C-Reactive Protein Total Protein 5.9 L D Albumin 3.3 L Globulin 2.6 Albumin/Globulin Ratio 1.3 Lipase Procalcitonin Urine Color Urine Appearance Urine pH Ur Specific [place] Urine Protein Urine Glucose (UA) Urine Ketones Urine Blood Urine Nitrite Urine Bilirubin Urine Urobilinogen Ur Leukocyte Esterase Urine WBC (Auto) Urine RBC (Auto) U Hyaline Cast (Auto) U Epithel Cells (Auto) Urine Bacteria (Auto) Ur Renal Epithelial Cell Urine Yeast Urine Opiates Screen Ur Methadone, Qual Urine Barbiturates Ur Phencyclidine (PCP) U Amphetamines Confirm U Amphetamin/Meth Scrn U Methamphetamin Confrm MDMA (Ecstasy) Screen U Benzodiazepines Scrn Ur Cocaine Metabolite U Marijuana (THC) Screen Drug Screen Comment Ethyl Alcohol mg/dL Anaplasma Smear A. phagocytophilum DNA Babesia Smear Babesia microti DNA PCR Lyme Disease IgG Ab Lyme Disease IgM Ab SARS-CoV-2 (PCR) Influenza Type A (PCR) Influenza Type B (PCR) RSV (RT-PCR) 08/11/22 08/11/22 06:01 11:50 WBC RBC Hgb POC Hgb Hct POC Hct MCV MCH MCHC RDW Std Deviation RDW Coeff of Ron Plt Count MPV Immature Gran % (Auto) Neut % (Auto) Lymph % (Auto) [place] % (Auto) Eos % (Auto) Baso % (Auto) Neut # (Auto) Lymph # (Auto) [place] # (Auto) Eos # (Auto) Baso # (Auto) Immature Gran # (Auto) ESR PT INR APTT PTT Ratio ABG pH ABG pCO2 ABG pO2 ABG HCO3 ABG O2 Saturation ABG Base Excess Navneet Test VBG pH VBG pCO2 VBG pO2 VBG HCO3 VBG O2 Saturation VBG Base Excess Oxygen Given POC Sodium Sodium POC Potassium Potassium POC Chloride Chloride Carbon Dioxide POC Total CO2 Anion Gap POC Anion Gap POC BUN BUN Creatinine POC Creatinine Est Cr Clr Drug Dosing Est GFR ( Amer) Est GFR (Non-Af Amer) BUN/Creatinine Ratio Glucose POC Glucose (other) Lactate Calcium POC Ioniz Calcium Avelina Magnesium Total Bilirubin Direct Bilirubin AST ALT Alkaline Phosphatase Total Creatine Kinase Troponin I High Sens 73.3 H* D Pending C-Reactive Protein Total Protein Albumin Globulin Albumin/Globulin Ratio Lipase Procalcitonin Urine Color Urine Appearance Urine pH Ur Specific [place] Urine Protein Urine Glucose (UA) Urine Ketones Urine Blood Urine Nitrite Urine Bilirubin Urine Urobilinogen Ur Leukocyte Esterase Urine WBC (Auto) Urine RBC (Auto) U Hyaline Cast (Auto) U Epithel Cells (Auto) Urine Bacteria (Auto) Ur Renal Epithelial Cell Urine Yeast Urine Opiates Screen Ur Methadone, Qual Urine Barbiturates Ur Phencyclidine (PCP) U Amphetamines Confirm U Amphetamin/Meth Scrn U Methamphetamin Confrm MDMA (Ecstasy) Screen U Benzodiazepines Scrn Ur Cocaine Metabolite U Marijuana (THC) Screen Drug Screen Comment Ethyl Alcohol mg/dL Anaplasma Smear A. phagocytophilum DNA Babesia Smear Babesia microti DNA PCR Lyme Disease IgG Ab Lyme Disease IgM Ab SARS-CoV-2 (PCR) Influenza Type A (PCR) Influenza Type B (PCR) RSV (RT-PCR) PG Care Time/CCT Total # of Minutes Spent Total Time Spent with Patient: Total time spent is greater than 50% in coordination of care (as documented) at patient's floor/unit and/or counseling patient: Prolonged Care Time Prolonged Care Time: Yes Total Prolonged Care Time: 65 Coding Level of Care Code 07887 Subseq Hosp Care Lvl 3 (25 - SIGNIFICANT, SEPARATELY IDENTIFIABLE ) Diagnoses SIRS (systemic inflammatory response syndrome) R65.10 Acute metabolic encephalopathy G93.41 Lactic acidosis E87.20 Elevated INR R79.1 Elevated bilirubin R17 ENRRIQUE (acute kidney injury) N17.9 Hyperkalemia E87.5 Elevated troponin R77.8 Polycythemia D75.1 REBECCA on CPAP G47.33; Z99.89 GERD (gastroesophageal reflux disease) K21.9 Anxiety and depression F41.9; F32.A ADHD F90.9 Congenital glaucoma Q15.0 Weight loss R63.4 Additional Codes Prolonged Care Time - Prolonged Care Time: Yes ([id number])
--- NOTE | 2022-08-11 13:21 | XCELERA ---
[id number] [id number]
[2022-08-11] MEDS ORDERED: LORazepam 0.5 MG TAB PO STA (14:19)
[2022-08-11 15:29] LABS: INR 1.4 (0.9-1.1); Partial Thromboplastin Ratio 0.9; Partial Thromboplastin Time 25.6 Seconds (21.0-31.0); Prothrombin Time 14.8 Seconds (9.0-12.0)
--- NOTE | 2022-08-11 16:34 | Magnetic Resonance Report ---
MR venography head wo con HISTORY: Altered mental status. Headache. TECHNIQUE: MRV of the brain was performed without contrast according to standard departmental protoco l. COMPARISON STUDY: Head CT 08/10/2022. FINDINGS: The visualized internal jugular veins, sigmoid sinuses, transverse sinuses, straight sinus, vein of Sel[place], internal cerebral veins, and superior sagittal sinus appear patent. IMPRESSION: No evidence for dural venous sinus thrombosis. ACT 112: Negative or not required by law. Electronically signed by: Harvey Bro M.D. 08/11/2022 4:32 PM
--- NOTE | 2022-08-11 16:34 | Electrocardiogram Report ---
Test Reason : Blood Pressure : / mmHG Vent. Rate : 132 BPM Atrial Rate : 132 BPM P-R Int : 096 ms QRS Dur : 090 ms QT Int : 280 ms P-R-T Axes : 070 142 032 degrees QTc Int : 414 ms Sinus tachycardia with short DC Biatrial enlargement Right axis deviation Abnormal ECG When compared with ECG of 29-JUL-2020 11:36, QRS axis Shifted right Confirmed by Saud Bird ([id number]) on 08/11/2022 4:34:45 PM Referred By: REFERRED SELF Confirmed By:Saud Bird
--- NOTE | 2022-08-11 17:04 | Magnetic Resonance Report ---
MR angio head wo con, MR brain wo con HISTORY: 42 years-old Male altered MS, headache acutely altered mental status with headache COMPARISON: MRV of same day, head CT 08/10/2022, MRA of the head 07/31/2020 TECHNIQUE: MRA of the head was obtained without the use of IV contrast utilizing 3-D [id number]-jh-wnzehy s equencing with reformats. All measurements were obtained according to NASCET criteria. Noncontrast ra in MRI also obtained. FINDINGS: MRA: The imaged distal internal carotid arteries, middle and anterior cerebral arteries are widely patent. The imaged distal vertebral arteries, basilar and posterior cerebral arteries are patent. No aneurys m, dissection, high-grade stenosis or arterial occlusion identified. MRI BRAIN: The patient was claustrophobic and was unable to complete the study. The axial T1, T2 and gradient e cho series were not obtained. There is no restricted diffusion to suggest acute or subacute infarct. The midline structures appear unremarkable. Normal volume and signal of the brain parenchyma. IMPRESSION: 1. Unremarkable MRA of the head. 2. No acute or subacute infarct. 3. Limited MRI of the brain secondary to the patient's inability to complete the exam. ACT 112: Negative or not required by law. The above report was generated using voice recognition software. It may contain grammatical, syntax o r spelling errors. Electronically signed by: Feroz Elliott M.D. 08/11/2022 5:02 PM
--- NOTE | 2022-08-11 17:15 | Ultrasound Report ---
ABDOMINAL ULTRASOUND, RIGHT UPPER QUADRANT HISTORY: abnl LFTs, elevated INR. COMPARISON: Abdomen and pelvis CT 08/10/2022. FINDINGS: Pancreas: The pancreatic head and tail are obscured by overlying bowel gas. The remaining portions of the pancreas are within normal limits. Liver: Mildly enlarged measuring 20 cm in length. There are 2 cysts within the right hepatic lobe wit h the largest measuring 14 mm. These appear to demonstrate thin septations. The main portal vein is p atent. No hepatic masses. Gallbladder: No gallbladder wall thickening. No gallstones. CBD: 3 mm. Right kidney: No hydronephrosis. IMPRESSION: 1. Mild hepatomegaly. 2. Normal gallbladder. No gallstones ACT 112: Negative or not required by law. Electronically signed by: Harvey Bro M.D. 08/11/2022 5:14 PM
[2022-08-11] MEDS ORDERED: PHYTONADIONE 5 MG TAB PO STA (18:58)
[2022-08-11 19:47] LABS: Estimated Average Glucose 111 mg/dl; Hemoglobin A1C 5.5 % (4.5-5.6)
--- NOTE | 2022-08-11 21:32 | Consultation ---
Date of Consultation August 11, 2022 Assessment & Plan (1) Erythrocytosis: He has a history of erythrocytosis without a history of tobacco use, pulmonary disorder, or cardiac disorder including apparent specific exclusion of interatrial shunt on today's study. He does not have a dramatic family history oxygen affinity disorder or an erythropoietin receptor defect. He does have a history of sleep apnea and has only just recently had optimization of his CPAP device. We will seek confirmatory reports but both he and his are confident that his JAK2 screen was negative previously and he indicates that his erythropoietin levels were "unremarkable." CT scan does not show evidence of splenomegaly. Sleep apnea can certainly be associated with a secondary erythrocytosis which even with improved CPAP machine may still have periodic bursts of erythropoietin and produce his current picture. The more marked initial erythrocytosis represented a further exacerbation with dehydration. Following rehydration his hemoglobin hematocrit are only marginally above normal. The combination of a negative JAK2 mutation and splenomegaly largely rules out classic polycythemia vera. JAK2 unmutated erythrocytosis is a syndrome that represents a variety of pathophysiologies some of which are "physiologic" reactions to lesser oxygen delivery particularly among which would be sleep apnea. Even among those that do not seem to be physiologic, the level of risk of thrombosis seems to be significantly less than that with classic JAK2 mutated polycythemia vera - see Joleen, et al. in Leukemia 202; 35: 2819-3955 https/nature.com/articles/v01068-462-02280-7. Their treatment algorithm suggests that neither phlebotomy/pharmacologic cytoreduction nor aspirin are routinely indicated in the absence of previous VTE or other clearly related symptoms. Phlebotomy/cytoreduction may be helpful in symptomatic excessively elevated H&H. Aspirin may be considered in patients who have other cardiovascular risk factors or [place] polycythemia. Anticoagulation would clearly be indicated in the presence of VTE It is most likely that this is a case of REBECCA related erythrocytosis and primary therapeutic intervention will be focused on optimizing his treatment for that. There have been some questions of some mildly altered mental status but MRI/MRA do not suggest any cerebrovascular compromise. Moreover, TTE does not suggest a PFO where distal venous clot might crossover to the systemic arterial circulation. Would defer to neurology and his PCP as to whether this warrants consideration for low-dose aspirin. Plan I have requested confirmatory records regarding previous JAK2 mutation screen and erythropoietin levels Optimize treatment for sleep apnea Unless neurology/hospitalist feel that aspirin is indicated for the [employer] issues, there is probably not a specific indication for phlebotomy/Hydrea nor for aspirin outside of atherosclerotic risk factors related to cerebrovascular or coronary artery disease. History of Present Illness Reason for Consultation: Patient with erythrocytosis in the context of obstructive sleep apnea which is only just now being brought under control. Attending Physician: Blake Llanos History of Present Illness Patient admitted with question of sepsis with dehydration and ENRRIQUE as well as subtle mental status changes. We are specifically consulted because of elevated hemoglobin hematocrit. 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 This was done in [place] and we have asked any records available to be faxed to us for confirmation. He does have a history of sleep apnea and is only just now getting that under control. He has no history of major tobacco use. He has no history of major cardiac issues and notably had an echocardiogram done this admission which shows normal function and no interatrial flow with contrast. He thinks his father may or may not of had some elevated hemoglobin levels but that does not seem to be a traumatic family history of erythrocytosis to suggest congenital erythropoietin receptor for oxygen affinity defects. He has no history of VTE Allergies Allergy/AdvReac Type Severity Reaction Status Date / Time iodine Allergy Severe Anaphylaxis Verified 08/22/18 09:30 codeine Allergy Intermediate Rash Verified 08/22/18 09:30 Home Medications Medication Instructions Recorded Confirmed Type albuterol sulfate 90 mcg/actuation 1 puff inhalation QID PRN SOB 08/09/18 07/29/20 History aerosol inhaler omeprazole magnesium 20 mg 20 mg PO BID 08/09/18 07/29/20 History tablet,delayed release (Prilosec OTC) bupropion HCl 200 mg tablet,12 hr 200 mg PO BID 07/29/20 07/29/20 History sustained-release dextroamphetamine sulfate 15 mg 30 mg PO BID 07/29/20 07/29/20 History capsule,extended release aspirin 81 mg tablet,delayed 81 mg PO DAILY #90 tabs 07/31/20 Rx release Patient History Medical History (Updated 08/11/22 @ 21:41 by Vance Valladares MD) Asthma Congenital glaucoma Obesity (BMI 30.0-34.9) Surgical History H/O wisdom tooth extraction History of adenoidectomy History of colonoscopy History of esophagogastroduodenoscopy (EGD) History of tonsillectomy Family History Denies family history of Myocardial infarction Stroke Social History Smoking Status: Never smoker Second Hand Exposure: No; Hx Alcohol Use: Yes Alcohol type: beer, wine and hard liquor Alcohol Intake Frequency Comment: 2-3 beers or drinks a week Hx Substance Use: No Preferred Language: Spanish Communication Ability: Effective Technical Solutions Director Required: No Beliefs That Will Affect Care: None Current Living Situation: Spouse and Family Current Living Situation Comment: Pt lives at home with spouse and son Other Information That Helps Us Care for You: No Feels Safe at Home: Yes Safety Concerns: Feels Safe At This Time Assistive Devices: CPAP and Glasses Physical Exam Physical Exam: Alert, cooperative, comfortable in no respiratory distress Lungs seem clear Abdomen is without clear splenomegaly Results & Data ([facility]) Vital Signs (Past 12 Hours) Vital Signs Temp Pulse Pulse Resp BP BP Pulse Ox 08/11/22 19:28 36.4 C L 104 H 20 136/73 97 08/11/22 16:43 102 H 08/11/22 16:07 36.8 C 111 H 20 112/61 91 08/11/22 12:11 117 H 08/11/22 12:06 36.7 C 103 H 18 113/56 L 95 O2 Del Method 08/11/22 19:28 Room Air 08/11/22 16:43 08/11/22 16:07 Room Air 08/11/22 12:11 08/11/22 12:06 Room Air Laboratory Results Abnormal lab results 08/10/22 08/10/22 08/10/22 Range/Units 21:18 21:18 21:29 WBC (4.8-10.8) K/ul RBC (4.63-6.08) M/uL Hct (40.1-51.0) % RDW Std Deviation (36.4-46.3) fL RDW Coeff of Ron (11.5-14.5) % Plt Count (130-400) K/uL Neut # (Auto) (1.4-6.5) K/uL Hill # (Auto) (0.24-0.82) K/uL Immature Gran # (Auto) (0.00-0.02) K/uL PT (9.0-12.0) Seconds INR (0.9-1.1) ABG pCO2 (35-46) mmHg ABG pO2 (80-95) mmHg ABG O2 Saturation (90-95) % Chloride 110 H (98-107) mmol/L BUN 34 H (6-23) mg/dl Creatinine 2.46 H (0.6-1.4) mg/dl Glucose 121 H (70-99(Fasting)) mg/dl Lactate (0.4-2.0) mmol/L Calcium 8.1 L D (8.5-10.1) mg/dl Total Bilirubin (0.2-1.0) mg/dl Total Creatine Kinase (30-223) U/L Troponin I High Sens (0-20) pg/ml Total Protein (6.0-8.3) gm/dl Albumin (3.4-5.0) gm/dl Urine Appearance Turbid A (Clear) Urine Protein 1+ H (Negative) Urine Glucose (UA) 1+ H (Negative) Urine Ketones Trace H (Negative) Urine Blood Trace H (Negative) Urine Nitrite Positive A (Negative) Urine Bilirubin 2+ H (Negative) Ur Leukocyte Esterase 1+ H (Negative) Urine WBC (Auto) 10-30 H (0-5) /hpf U Hyaline Cast (Auto) >30 H (0-5) /lpf U Epithel Cells (Auto) >30 H (0-5) /lpf U Amphetamin/Meth Scrn Pos H (Neg) 08/10/22 08/10/22 08/10/22 Range/Units 22:20 22:26 23:40 WBC (4.8-10.8) K/ul RBC (4.63-6.08) M/uL Hct (40.1-51.0) % RDW Std Deviation (36.4-46.3) fL RDW Coeff of Ron (11.5-14.5) % Plt Count (130-400) K/uL Neut # (Auto) (1.4-6.5) K/uL Hill # (Auto) (0.24-0.82) K/uL Immature Gran # (Auto) (0.00-0.02) K/uL PT (9.0-12.0) Seconds INR (0.9-1.1) ABG pCO2 33 L (35-46) mmHg ABG pO2 96 H (80-95) mmHg ABG O2 Saturation 98.6 H (90-95) % Chloride (98-107) mmol/L BUN 32 H (6-23) mg/dl Creatinine 2.12 H D (0.6-1.4) mg/dl Glucose (70-99(Fasting)) mg/dl Lactate 2.7 H* (0.4-2.0) mmol/L Calcium 8.4 L (8.5-10.1) mg/dl Total Bilirubin (0.2-1.0) mg/dl Total Creatine Kinase (30-223) U/L Troponin I High Sens (0-20) pg/ml Total Protein (6.0-8.3) gm/dl Albumin (3.4-5.0) gm/dl Urine Appearance (Clear) Urine Protein (Negative) Urine Glucose (UA) (Negative) Urine Ketones (Negative) Urine Blood (Negative) Urine Nitrite (Negative) Urine Bilirubin (Negative) Ur Leukocyte Esterase (Negative) Urine WBC (Auto) (0-5) /hpf U Hyaline Cast (Auto) (0-5) /lpf U Epithel Cells (Auto) (0-5) /lpf U Amphetamin/Meth Scrn (Neg) 08/11/22 08/11/22 08/11/22 Range/Units 06:01 06:01 06:01 WBC 15.07 H (4.8-10.8) K/ul RBC 6.18 H (4.63-6.08) M/uL Hct 51.3 H (40.1-51.0) % RDW Std Deviation 50.6 H (36.4-46.3) fL RDW Coeff of Ron 18.6 H (11.5-14.5) % Plt Count 442 H (130-400) K/uL Neut # (Auto) 11.79 H (1.4-6.5) K/uL Hill # (Auto) 1.45 H (0.24-0.82) K/uL Immature Gran # (Auto) 0.09 H (0.00-0.02) K/uL PT 14.5 H (9.0-12.0) Seconds INR 1.4 H (0.9-1.1) ABG pCO2 (35-46) mmHg ABG pO2 (80-95) mmHg ABG O2 Saturation (90-95) % Chloride (98-107) mmol/L BUN 34 H (6-23) mg/dl Creatinine 1.90 H (0.6-1.4) mg/dl Glucose 143 H (70-99(Fasting)) mg/dl Lactate (0.4-2.0) mmol/L Calcium 8.3 L (8.5-10.1) mg/dl Total Bilirubin 1.7 H (0.2-1.0) mg/dl Total Creatine Kinase 441 H (30-223) U/L Troponin I High Sens (0-20) pg/ml Total Protein 5.9 L D (6.0-8.3) gm/dl Albumin 3.3 L (3.4-5.0) gm/dl Urine Appearance (Clear) Urine Protein (Negative) Urine Glucose (UA) (Negative) Urine Ketones (Negative) Urine Blood (Negative) Urine Nitrite (Negative) Urine Bilirubin (Negative) Ur Leukocyte Esterase (Negative) Urine WBC (Auto) (0-5) /hpf U Hyaline Cast (Auto) (0-5) /lpf U Epithel Cells (Auto) (0-5) /lpf U Amphetamin/Meth Scrn (Neg) 08/11/22 08/11/22 08/11/22 Range/Units 06:01 11:50 14:57 WBC (4.8-10.8) K/ul RBC (4.63-6.08) M/uL Hct (40.1-51.0) % RDW Std Deviation (36.4-46.3) fL RDW Coeff of Ron (11.5-14.5) % Plt Count (130-400) K/uL Neut # (Auto) (1.4-6.5) K/uL Hill # (Auto) (0.24-0.82) K/uL Immature Gran # (Auto) (0.00-0.02) K/uL PT (9.0-12.0) Seconds INR (0.9-1.1) ABG pCO2 (35-46) mmHg ABG pO2 (80-95) mmHg ABG O2 Saturation (90-95) % Chloride (98-107) mmol/L BUN (6-23) mg/dl Creatinine (0.6-1.4) mg/dl Glucose (70-99(Fasting)) mg/dl Lactate (0.4-2.0) mmol/L Calcium (8.5-10.1) mg/dl Total Bilirubin (0.2-1.0) mg/dl Total Creatine Kinase (30-223) U/L Troponin I High Sens 73.3 H* D 89.0 H* D 81.0 H* (0-20) pg/ml Total Protein (6.0-8.3) gm/dl Albumin (3.4-5.0) gm/dl Urine Appearance (Clear) Urine Protein (Negative) Urine Glucose (UA) (Negative) Urine Ketones (Negative) Urine Blood (Negative) Urine Nitrite (Negative) Urine Bilirubin (Negative) Ur Leukocyte Esterase (Negative) Urine WBC (Auto) (0-5) /hpf U Hyaline Cast (Auto) (0-5) /lpf U Epithel Cells (Auto) (0-5) /lpf U Amphetamin/Meth Scrn (Neg) 08/11/22 Range/Units 14:57 WBC (4.8-10.8) K/ul RBC (4.63-6.08) M/uL Hct (40.1-51.0) % RDW Std Deviation (36.4-46.3) fL RDW Coeff of Ron (11.5-14.5) % Plt Count (130-400) K/uL Neut # (Auto) (1.4-6.5) K/uL Hill # (Auto) (0.24-0.82) K/uL Immature Gran # (Auto) (0.00-0.02) K/uL PT 14.8 H (9.0-12.0) Seconds INR 1.4 H (0.9-1.1) ABG pCO2 (35-46) mmHg ABG pO2 (80-95) mmHg ABG O2 Saturation (90-95) % Chloride (98-107) mmol/L BUN (6-23) mg/dl Creatinine (0.6-1.4) mg/dl Glucose (70-99(Fasting)) mg/dl Lactate (0.4-2.0) mmol/L Calcium (8.5-10.1) mg/dl Total Bilirubin (0.2-1.0) mg/dl Total Creatine Kinase (30-223) U/L Troponin I High Sens (0-20) pg/ml Total Protein (6.0-8.3) gm/dl Albumin (3.4-5.0) gm/dl Urine Appearance (Clear) Urine Protein (Negative) Urine Glucose (UA) (Negative) Urine Ketones (Negative) Urine Blood (Negative) Urine Nitrite (Negative) Urine Bilirubin (Negative) Ur Leukocyte Esterase (Negative) Urine WBC (Auto) (0-5) /hpf U Hyaline Cast (Auto) (0-5) /lpf U Epithel Cells (Auto) (0-5) /lpf U Amphetamin/Meth Scrn (Neg) Diagnostic Findings Abdomen/Pelvis CT 08/10/22 19:[address] WITHOUT CONTRAST HISTORY: Acute generalized abdominal pain with nausea and vomiting abd nv TECHNIQUE: Multiaxial CT images of the abdomen and pelvis were performed without contrast. A dose lowering technique was utilized adhering to the principles of ALARA. COMPARISON STUDY: Chest radiograph of same day FINDINGS: Study is degraded by respiratory motion artifact and limited by respiratory motion. The lung bases. No pneumatosis or pneumoperitoneum. Unremarkable spleen, pancreas, gallbladder and adrenal glands. Hepatic steatosis with hepatomegaly. 1.5 cm cyst of the hepatic dome. Unremarkable kidneys. No urolith or hydronephrosis identified. Circumferential urinary bladder wall thi ckening with partial distention. No abdominal aortic aneurysm. No lymphadenopathy identified. No bowel obstruction or bowel wall thickening. No ascites or mesenteric inflammation. Noninflamed appendix. Unremarkable soft tissues. No acute fracture identified. IMPRESSION: 1. No acute intra-abdominal or intrapelvic abnormality identified. 2. No bowel obstruction or bowel wall thickening. Normal appendix. ACT 112: Negative or not required by law. The above report was generated using voice recognition software. It may contain grammatical, syntax or spelling errors. Electronically signed by: Feroz Elliott M.D. 08/10/2022 8:46 PM Chest X-Ray 08/10/22 19:19 XR chest 1V portable HISTORY: 42 years-old Male nv acute nausea and vomiting COMPARISON: Chest radiograph 07/29/2020 TECHNIQUE: AP view of the chest FINDINGS: Cardiomediastinal and hilar silhouettes are within normal limits. No pneumothorax, pleural effusion, airspace consolidation or overt pulmonary edema. Bones of the chest appear grossly intact. IMPRESSION: No acute process. ACT 112: Negative or not required by law. The above report was generated using voice recognition software. It may contain grammatical, syntax or spelling errors. Electronically signed by: Feroz Elliott M.D. 08/10/2022 8:[address] 08/10/22 19:19 CT head/brain wo con CLINICAL HISTORY: 42 years-old Male with long onset 1800. Acutely altered mental status TECHNIQUE: Multiple axial CT images of the head were obtained without contrast. A dose lowering technique was utilized adhering to the principles of ALARA. CT DOSE: 1353.56 mGy.cm COMPARISON: Head CT 07/29/2020. FINDINGS: No acute intracranial hemorrhage, midline shift, intracranial mass, hydrocephalus, territorial ischemia or abnormal extra-axial collection. Slightly increased attenuation of the left middle cerebral artery is likely artifactual. The calvarium is intact. The paranasal sinuses, mastoid air cells, and middle ear cavities are clear. IMPRESSION: No acute intracranial abnormality. ACT 112: Negative or not required by law. The above report was generated using voice recognition software. It may contain grammatical, syntax or spelling errors. Electronically signed by: Feroz Elliott M.D. 08/10/2022 8:36 PM Gallbladder Ultrasound 08/11/22 10:17 ABDOMINAL ULTRASOUND, RIGHT UPPER QUADRANT HISTORY: abnl LFTs, elevated INR. COMPARISON: Abdomen and pelvis CT 08/10/2022. FINDINGS: Pancreas: The pancreatic head and tail are obscured by overlying bowel gas. The remaining portions of the pancreas are within normal limits. Liver: Mildly enlarged measuring 20 cm in length. There are 2 cysts within the right hepatic lobe with the largest measuring 14 mm. These appear to demonstrate thin septations. The main portal vein is patent. No hepatic masses. Gallbladder: No gallbladder wall thickening. No gallstones. CBD: 3 mm. Right kidney: No hydronephrosis. IMPRESSION: 1. Mild hepatomegaly. 2. Normal gallbladder. No gallstones ACT 112: Negative or not required by law. Electronically signed by: Harvey Bro M.D. 08/11/2022 5:14 PM Brain MRI 08/11/22 12:47 MR angio head wo con, MR brain wo con HISTORY: 42 years-old Male altered MS, headache acutely altered mental status with headache COMPARISON: MRV of same day, head CT 08/10/2022, MRA of the head 07/31/2020 TECHNIQUE: MRA of the head was obtained without the use of IV contrast utilizing 3-D [id number]-am-[id number] sequencing with reformats. All measurements were obtained according to NASCET criteria. Noncontrast rain MRI also obtained. FINDINGS: MRA: The imaged distal internal carotid arteries, middle and anterior cerebral arteries are widely patent. The imaged distal vertebral arteries, basilar and posterior cerebral arteries are patent. No aneurysm, dissection, high-grade stenosis or arterial occlusion identified. MRI BRAIN: The patient was claustrophobic and was unable to complete the study. The axial T1, T2 and gradient echo series were not obtained. There is no restricted diffusion to suggest acute or subacute infarct. The midline structures appear unremarkable. Normal volume and signal of the brain parenchyma. IMPRESSION: 1. Unremarkable MRA of the head. 2. No acute or subacute infarct. 3. Limited MRI of the brain secondary to the patient's inability to complete the exam. ACT 112: Negative or not required by law. The above report was generated using voice recognition software. It may contain grammatical, syntax or spelling errors. Electronically signed by: Feroz Elliott M.D. 08/11/2022 5:02 PM Head MRA 08/11/22 12:47 MR angio head wo con, MR brain wo con HISTORY: 42 years-old Male altered MS, headache acutely altered mental status with headache COMPARISON: MRV of same day, head CT 08/10/2022, MRA of the head 07/31/2020 TECHNIQUE: MRA of the head was obtained without the use of IV contrast utilizing 3-D ifkg-[id number]-zmiqmg sequencing with reformats. All measurements were obtained according to NASCET criteria. Noncontrast rain MRI also obtained. FINDINGS: MRA: The imaged distal internal carotid arteries, middle and anterior cerebral arteries are widely patent. The imaged distal vertebral arteries, basilar and posterior cerebral arteries are patent. No aneurysm, dissection, high-grade stenosis or arterial occlusion identified. MRI BRAIN: The patient was claustrophobic and was unable to complete the study. The axial T1, T2 and gradient echo series were not obtained. There is no restricted diffusion to suggest acute or subacute infarct. The midline structures appear unremarkable. Normal volume and signal of the brain parenchyma. IMPRESSION: 1. Unremarkable MRA of the head. 2. No acute or subacute infarct. 3. Limited MRI of the brain secondary to the patient's inability to complete the exam. ACT 112: Negative or not required by law. The above report was generated using voice recognition software. It may contain grammatical, syntax or spelling errors. Electronically signed by: Feroz Elliott M.D. 08/11/2022 5:02 PM Head/Brain Mag Res Venography 08/11/22 12:47 MR venography head wo con HISTORY: Altered mental status. Headache. TECHNIQUE: MRV of the brain was performed without contrast according to standard departmental protocol. COMPARISON STUDY: Head CT 08/10/2022. FINDINGS: The visualized internal jugular veins, sigmoid sinuses, transverse sinuses, straight sinus, vein of [place], internal cerebral veins, and superior sagittal sinus appear patent. IMPRESSION: No evidence for dural venous sinus thrombosis. ACT 112: Negative or not required by law. Electronically signed by: Harvey Bro M.D. 08/11/2022 4:32 PM PG Care Time/CCT Total # of Minutes Spent Total Time Spent with Patient: Total time spent is greater than 50% in coordination of care (as documented) at patient's floor/unit and/or counseling patient: [place] [address] Inpt Consult Level 4 Patient Type New History Expanded Problem Focused Exam Expanded Problem Focused Medical Decision Making Moderate Complexity Diagnoses Erythrocytosis D75.1
[2022-08-12] MEDS: LACTATED RINGER'S 1,000 ML IV SCH ×2 (02:36→09:13)
[2022-08-12 08:33] LABS: Basophils # (auto) 0.04 K/uL (0-0.2); Basophils % (auto) 0.6 %; Eosinophils # (auto) 0.13 K/uL (0-0.50); Eosinophils % (auto) 2.1 %; Hematocrit (blood only) 50.4 % (40.1-51.0); Hemoglobin 16.7 g/dl (14.0-18.0); Immature Granulocytes # (auto) 0.02 K/uL (0.00-0.02); Immature Granulocytes % (auto) 0.3 %; Lymphocytes % (auto) 17.8 %; Mean Corpuscular Hemoglobin 28.4 pg (25.0-34.0); Mean Corpuscular Hgb Conc 33.1 g/dL (32.0-36.0); Mean Corpuscular Volume 85.7 fL (80.0-100.0); Monocytes % (auto) 9.7 %; Neutrophils % (auto) 69.5 %; Platelet Count 332 K/uL (130-400); RDW Coefficient of Variation 17.9 % (11.5-14.5); RDW Standard Deviation 51.1 fL (36.4-46.3); Red Blood Count 5.88 M/uL (4.63-6.08); White Blood Count 6.19 K/ul (4.8-10.8)
[2022-08-12 09:04] LABS: Albumin Globulin Ratio 1.4 (0.9-2); Albumin Level 3.3 gm/dl (3.4-5.0); BUN Creatinine Ratio 12.3 (10-20); Bilirubin,Total 1.2 mg/dl (0.2-1.0); Calcium 7.9 mg/dl (8.5-10.1); Creatinine Clr Calc Pharmacy 102.8 ml/min; Est GFR (African American) 92.7 ml/min; Globulin 2.4 gm/dl (2.5-4.0); Potassium 4.7 mmol/L (3.5-5.1); Total Protein 5.7 gm/dl (6.0-8.3)
[2022-08-12 09:11] LABS: INR 1.3 (0.9-1.1); Prothrombin Time 13.4 Seconds (9.0-12.0)
[2022-08-12] MEDS: PANTOprazole 40 MG TAB PO SCH ×2 (09:13→20:26)
[2022-08-12] MEDS: ASPIRIN 81 MG ECTAB PO SCH (09:13)
[2022-08-12] MEDS: buPROPion SR 100 MG TABCR PO SCH ×2 (09:13→20:26)
[2022-08-12] MEDS ORDERED: PHYTONADIONE 5 MG TAB PO STA (10:31)
[2022-08-12] MEDS: cefTRIAXone SODIUM 2,000 MG in DEXTROSE 5% 50 ML IV SCH (12:13)
--- NOTE | 2022-08-12 13:48 | Hospitalist Progress Note ---
Date of Service August 12, 2022 Assessment & Plan (1) SIRS (systemic inflammatory response syndrome): Plan: patient presented with tachycardia, tachypnea, elevated lactate, elevated WBC count, etc. infectious source not identified, however COVID/RSV/flu negative u/a dirty but urine culture negative no obvious tick bite - lyme neg; anaplasmosis, ehrlichiosis pending RUQ u/s obtained due to abnormal LFTs - no biliary tract disease blood cx's neg I am unclear what caused his presentation and his SIRS see below follow cultures to completion (2) Acute metabolic encephalopathy: Plan: essentially resolved although continues to have mild thought blocking / word- finding difficulties MRI brain, MRA brain, and MRV without acute CVA, aneurysm, dural thrombosis, etc tox screen + for amphetamines but he takes such for ADD nothing else on tox screen checked cortisol and TSH/FT4 in am - wnl ammonia wnl B12 wnl B1 level sent -- will give thiamine 500mg IV x 1, and repeat in am, and then send home with course of PO thiamine while awaiting level altered MS 2nd to severe metabolic derangements at presentation? other issue? no evidence of meningitis on exam I spoke with Dr Sewell from [facility] who will consult tomorrow I am concerned, given his young age, that he is still having the issues with word finding difficulty, etc exact etiology has been elusive (3) Lactic acidosis: Plan: severely volume contracted at time of presentation cause of copious vomiting very uncertain but resolved with supportive care only lactate normalized (4) Elevated INR: Plan: INR 1.2 in 2019 now 1.4 at admission RUQ u/s - mildly enlared liver/fatty liver but that doesn't explain the INR platelets not low thus no TTP, etc vit K deficiency? other? vit K 5mg PO x 1 improved INR to 1.3 today will give another dose of vitamin K if INR doesn't correct will defer additional w/u to heme/onc would need to consider factor deficiencies liver disease still possible as well repeat INR am (5) Elevated bilirubin: Plan: etiology? Gilbert's? no evidence of hemolysis RUQ u/s without biliary tract disease cont supportive care bilirubin trending down - supports Gilbert's, but I don't have other bilirubin levels from the past other than 2019 (which were wnl then) repeat LFTs as outpt to trend the bili (6) ENRRIQUE (acute kidney injury): Plan: resolved stop IV fluids prerenal etioogy -- volume contraction from emesis likely led to ENRRIQUE. no obstruction on CT a/p. BMP am (7) Hyperkalemia: Plan: 2nd to ENRRIQUE K level now normal (8) Elevated troponin: Plan: myocardial demand ischemia in setting of tachycardia, ENRRIQUE, etc. no symptoms to suggest ACS. echo with nl LV Fx and normal wall motion. (9) Polycythemia: Plan: Hgb 19.9 at presentation does have chronic polycythemia and has had negative work-up for PCV in the past including a negative Jak2 mutation in September 2020 per 's report Hb improved s/p IV fluids thus, did have an element of hemoconcentration on top of chronic polycythemia heme/onc consult appreciated -- polycythemia 2nd REBECCA?? will perform overnight oximetry study on his CPAP to ensure he does not desat despite use of his CPAP machine (10) REBECCA on CPAP: Plan: cont CPAP at night. compliant w/ such at home. recent repeat study done - I do not have those results. overnight oximetry study requested tonight. (11) GERD (gastroesophageal reflux disease): Plan: Continue PPI (12) Anxiety and depression: Plan: Continue Wellbutrin. (13) ADHD: Plan: Hold dextroamphetamine during hospitalization. Tox screen shows evidence of this med. PDMP confirms chronic usage of this med. 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 (15) Weight loss: Plan: etiology?? checked TSH/FT4 in am - negative/wnl. May need outpatient EGD/colonoscopy for additional w/u, etc. (16) History of concussion: Plan: h/o multiple head injuries/concussions earlier in life perhaps this is the cause of chronic low-grade memory issues?? neuro consult requested for acute issues outpatient neuropsych testing would be helpful as well Plan very complicated presentation without clear-cut diagnosis that ties together all presenting symptoms & issues regardless he has continued to improve await neuro consult for any other recs regarding word-finding difficulties updated at bedside Admission and Anticipated Discharge Date Admission Date: August 10, 2022 Subjective patient overall feeling better appetite is robust energy improved cognition improved still with mild word finding difficulties concurs the word finding difficulties are still present but much better he stated "I feel 84% better today" no new complaints headache resolved patient reports having had a repeat sleep study recently it was not a split study despite compliance with CPAP he is always tired hence the repeat study Review of Systems Review of Systems: gen - no fevers/chills HENT - no URI sx's cv - no cp pulm - no dyspnea GI - no recurrent N/V musculo - no myalgias or arthralgias neuro - multiple head injuries/concussions earlier in life Physical Exam Physical Exam: gen - mild thought blocking improved; stuttering but able to talk in complete sentences; stuttering is at baseline; no dysarthria; no aphasia; looks much better today eyes - no nystagmus skin - dejan complexion of face; darkly tanned elsewhere mouth - MMM neck - no JVD CV - tachy, s1 s2, no murmur lungs - CTA b/l abd - soft, NT, ND, BS+, no HSM ext - no edema, pulses 2+ b/l neuro - no asterixis or tremor psych - a/o x 3 Results & Data Results & Data ([facility]) Vital Signs (Past 12 Hours) Vital Signs Temp Pulse Pulse Resp BP BP Pulse Ox 08/12/22 11:46 36.7 C 101 H 20 122/73 94 08/12/22 09:19 36.4 C L 103 H 20 153/79 H 93 08/12/22 03:27 36.5 C 87 18 129/70 96 08/12/22 03:15 90 17 100 08/12/22 02:00 91 H O2 Del Method 08/12/22 11:46 Room Air 08/12/22 09:19 Room Air 08/12/22 03:27 CPAP 08/12/22 03:15 08/12/22 02:00 Laboratory Results bmp wnl; creatinine now normal INR 1.3 CPK still 400s urine cx neg blood cx neg PG Care Time/CCT Total # of Minutes Spent Total Time Spent with Patient: Total time spent is greater than 50% in coordination of care (as documented) at patient's floor/unit and/or counseling patient: Coding Level of Care Code 79870 Subseq Hosp Care Lvl 3 Diagnoses SIRS (systemic inflammatory response syndrome) R65.10 Acute metabolic encephalopathy G93.41 Lactic acidosis E87.20 Elevated INR R79.1 Elevated bilirubin R17 ENRRIQUE (acute kidney injury) N17.9 Hyperkalemia E87.5 Elevated troponin R77.8 Polycythemia D75.1 REBECCA on CPAP G47.33; Z99.89 GERD (gastroesophageal reflux disease) K21.9 Anxiety and depression F41.9; F32.A ADHD F90.9 Congenital glaucoma Q15.0 Weight loss R63.4 History of concussion Z87.820
[2022-08-12] MEDS: PSYLLIUM or GUAR GUM FIBER POWDER PACKET PO SCH (20:25)
[2022-08-12] MEDS ORDERED: THIAMINE HCL 500 MG in SODIUM CHLORIDE 0.9% 50 ML IV STA (21:11)
[2022-08-13 07:13] LABS: INR 1.3 (0.9-1.1); Prothrombin Time 13.2 Seconds (9.0-12.0)
[2022-08-13 07:36] LABS: BUN Creatinine Ratio 11.1 (10-20); Calcium 7.9 mg/dl (8.5-10.1); Creatinine Clr Calc Pharmacy 118.3 ml/min; Est GFR (Non-African American) 94.9 ml/min; Potassium 4.2 mmol/L (3.5-5.1)
[2022-08-13] MEDS ORDERED: PHYTONADIONE 5 MG TAB PO STA (07:42)
[2022-08-13] MEDS ORDERED: THIAMINE HCL 500 MG in SODIUM CHLORIDE 0.9% 50 ML IV ONE (08:00)
[2022-08-13 08:02] LABS: Amphetamine Urine, Confirm 10500 ng/mL (<250); Methamphetamine, Ur Confirm NEGATIVE ng/mL (<250)
[2022-08-13] MEDS: buPROPion SR 100 MG TABCR PO SCH (08:19)
[2022-08-13] MEDS: ASPIRIN 81 MG ECTAB PO SCH (08:20)
[2022-08-13] MEDS: PSYLLIUM or GUAR GUM FIBER POWDER PACKET PO SCH (08:21)
[2022-08-13] MEDS: PANTOprazole 40 MG TAB PO SCH (08:21)
--- NOTE | 2022-08-13 10:58 | Neurology Consultation ---
Date of Consultation August 13, 2022 Assessment & Plan (1) Acute metabolic encephalopathy: (2) Anxiety and depression: (3) ADHD: Plan This patient experience some sort of subacute word-finding difficulties or even encephalopathy for about 2 weeks prior to admission of uncertain etiology. Currently, the patient is back to baseline and has no focal findings, meningeal signs, or encephalopathy. Laboratory studies have not been specifically revealing although he may have had an inflammatory/viral illness. MRI of the brain was unremarkable as well. There is no evidence for stroke and I do not believe this was a TIA or seizure. The patient does have a history of ADHD on high dose generic Adderall ( 30 mg twice daily). He has anxiety depression which is improved and stable on bupropion. Recommendations: 1. Since he is back to baseline and appropriate tests have been done, I have no further neurologic testing or treatment recommendations to make at this time. 2. Please contact me if I can be of further assistance with this case. Overall, I spent a total of 90 minutes with this case including review of records, review of MRI films, direct evaluation patient bedside, and discussion of the case with the patient and RN at bedside, and Dr. Llanos including diff erential diagnosis and treatment options. History of Present Illness Reason for Consultation: Patient is a 42-year-old, who I was asked to see at the request of Dr. Llanos, for neurologic evaluation regarding encephalopathy. Requesting Physician: Dr. Llanos Attending Physician: Blake Llanos History of Present Illness this patient has a history of sleep apnea for at least 10 years compliant on CPAP. He has history of anxiety depressive condition on bupropion 200 mg twice a day. He is stable without side effects. He has ADHD and has been on generic Adderall for the last 15 years, 30 mg twice a day. patient has polycythemia. In July of 2020 he was admitted with several days of confusion and "word salad". It seemed like he was not finding words correctly then. He was diagnosed with encephalopathy and it resolved within a day or so of admission. At that time, CT scan of the head was unremarkable. MRI of the brain was unremarkable as well. MR angiography of the head neck were unremarkable with no vascular stenoses or anomalies. He did not have any seizure activity. Over the last 2 weeks the patient has had some lethargy and word-finding diff iculties. He has some trouble concentrating and this was intermittent although gradually progressive over the 2 weeks. On August 10 he vomited twice. He denied headache, weakness, numbness, balance problems, vision issues, or lightheadedness/syncope. He arrived to the emergency room August 10 with a temperature of 36.9, pulse 126, respiratory rate 30, blood pressure 126/70, and O2 saturation 99%. in the medical record notes, it states that he was experiencing headache but the patient currently denies that he ever had a headache. CBC showed elevated white count of 1st. This has resolved since admission. Sed rate was less than 1. lactate, BUN, and creatinine were elevated on admission but these are all improved. CK was elevated to up over 400 but today was 267. B12, folate, procalcitonin, and TSH were normal. Lyme antibody titers were negative and his troponins were elevated. Blood in urine cultures were unremarkable. Echocardiogram was unremarkable. Because of his polycythemia he saw Dr. Cardona who did not want to initiate any specific treatment at this time. MRI of the brain was unremarkable. He has no old small vessel ischemic disease or other changes. MR angiography of the head was unremarkable. He felt about 80% back to normal yesterday and today he feels 100% back to baseline /normal. He does not have any symptoms today. Allergies Allergy/AdvReac Type Severity Reaction Status Date / Time iodine Allergy Severe Anaphylaxis Verified 08/22/18 09:30 codeine Allergy Intermediate Rash Verified 08/22/18 09:30 Home Medications Medication Instructions Recorded Confirmed Type albuterol sulfate 90 mcg/actuation 1 puff inhalation QID PRN SOB 08/09/18 07/29/20 History aerosol inhaler omeprazole magnesium 20 mg 20 mg PO BID 08/09/18 07/29/20 History tablet,delayed release (Prilosec OTC) bupropion HCl 200 mg tablet,12 hr 200 mg PO BID 07/29/20 07/29/20 History sustained-release dextroamphetamine sulfate 15 mg 30 mg PO BID 07/29/20 07/29/20 History capsule,extended release aspirin 81 mg tablet,delayed 81 mg PO DAILY #90 tabs 07/31/20 Rx release Patient History Medical History Asthma Congenital glaucoma Obesity (BMI 30.0-34.9) Surgical History H/O wisdom tooth extraction History of adenoidectomy History of colonoscopy History of esophagogastroduodenoscopy (EGD) History of tonsillectomy Family History (Updated 08/13/22 @ 10:50 by Alcides Sewell MD) Mother Diabetes Hypertension Father Anxiety Denies family history of Myocardial infarction Stroke Social History (Updated 08/13/22 @ 10:51 by Alcides Sewell MD) Smoking Status: Never smoker Second Hand Exposure: No; Hx Alcohol Use: Yes Alcohol type: beer, wine and hard liquor Alcohol Intake Frequency Comment: 2-3 beers or drinks a week Hx Substance Use: No Preferred Language: Japanese Communication Ability: Effective Adjunct Psychology Instructor Required: No Beliefs That Will Affect Care: None Current Living Situation: Spouse and Family Current Living Situation Comment: Pt lives at home with spouse and son current occupational status: employed 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 The patient is awake, alert, and attentive. Speech is without any aphasia or dysarthria, however, he has some stuttering intermittently which is chronic. The patient can name objects, repeat phrases, and has normal spontaneous speech. Mentation and thought processes are intact, with orientation to person, place and time, and normal fund of knowledge. Attention and concentration are normal. Mood and affect are normal and appropriate. General appearance and grooming are normal. Short and long-term memory are intact. Pupils are 4 mm bilaterally and reactive to light. Extraocular eye muscles are intact without nystagmus. Visual acuity and visual garcía seem normal grossly to confrontation. There are no deficits to sensation in the face in all 3 distributions of the fifth cranial nerve bilaterally. Corneal reflexes are positive bilaterally. Facial strength and symmetry was normal bilaterally. Hearing seems normal bilaterally. Palate moves well without asymmetry. There is normal sternocleidomastoid and trapezius (shoulder shrug) strength bilaterally. Tongue is midline with good strength bilaterally. Neck has a full range of motion without discomfort. There are no cervical bruits bilaterally. There are no cranial or ocular bruits. Heart is without murmur. There is a regular rhythm and rate. Cervical, thoracic, and lumbar spine are nontender to palpation. Gait is narrow based, with good arm swing, turns, and stance. stance sitting is normal. With outstretched arms there is no drift. There are no resting, postural, or action tremors. There is no ataxia with finger to nose testing. There is good facility in the hands. No other abnormal involuntary movements are noted. Motor strength is 5/5 diffusely in the arms bilaterally including deltoids, biceps, triceps, brachioradialis, wrist flexors and extensors, outside machinist supervisor, and intrinsic hand muscles. Motor strength is 5/5 diffusely in the legs bilaterally including hip flexors, quadriceps, hamstrings, gastrocnemius, tibialis anterior, tibialis posterior, and Peroneii muscles. Toe extensors are normal and there is good bulk in the extensor digitorum brevis muscles bilaterally. The limbs have good tone without rigidity or spasticity. There is no atrophy noted in the muscles. Muscle bulk is normal, there is no tenderness to palpation, no myotonia to percussion, and no fasciculations seen. Sensory examination is intact to touch and pin throughout all 4 limbs diffusely. Reflexes are 1/4 in the biceps, triceps, brachioradialis, quadriceps, and Achilles tendons bilaterally. There is no clonus bilaterally. Toes are downgoing with plantar stimulation bilaterally. Peripheral pulses are present and of normal quality distally in all 4 limbs. There is no peripheral edema noted in the limbs. Results & Data ([facility]) Vital Signs (Past 12 Hours) Vital Signs Temp Pulse Pulse Pulse Resp BP BP 08/13/22 07:35 36.5 C 84 17 128/78 08/13/22 07:12 91 H 08/13/22 04:04 36.3 C L 88 20 134/63 08/13/22 03:48 89 08/13/22 03:48 89 13 08/13/22 01:22 84 08/12/22 23:37 36.5 C 85 18 122/74 08/12/22 22:50 84 20 08/12/22 22:50 84 Pulse Ox Pulse Ox O2 Del Method O2 Del Method FiO2 08/13/22 07:35 98 Room Air 08/13/22 07:12 08/13/22 04:04 96 CPAP 08/13/22 03:48 98 CPAP 21 08/13/22 03:48 98 08/13/22 01:22 08/12/22 23:37 96 CPAP 08/12/22 22:50 98 08/12/22 22:50 97 CPAP PG Care Time/CCT Total # of Minutes Spent Total Time Spent with Patient: Total time spent is greater than 50% in coordination of care (as documented) at patient's floor/unit and/or counseling patient: Coding Level of Care Code 09745 Inpt Consult Level 5 Diagnoses Acute metabolic encephalopathy G93.41 Anxiety and depression F41.9; F32.A ADHD F90.9
--- NOTE | 2022-08-13 16:02 | Discharge Summary ---
Date of Service date of admission - August 10, 2022 date of discharge - August 13, 2022 Admission HPI Per Admitting Provider Darrick Valdez is a 42 y/o male with a PMH significant for REBECCA, GERD, depression, ADD, glaucoma, chronic left eye vision loss at baseline, and possible PCV who presents today with multiple concerns. One hour prior to presentation he developed a headache with associated vomiting and felt as though he might pass out. Prior to the headache, he had already been vomiting frequently and has been nauseous, diaphoretic, and breathing rapidly. HE also noted feeling a little mentally foggy and at bedside reports intermittent "word salad". He describes that the vomit looked dark brown, no obvious blood noted. The vomiting has been spontaneous. He has not had any fever, chills, body aches, SOB, cough, or other URI symptoms. No chest pain, palpitations, abdominal pain, diarrhea, hematochezia, melena, dysuria, or change in urinary frequency. He has no known tick bites or sick contact exposures of patients or family/friend with similar symptoms. He denies tobacco, drug, or regular alcohol use. He had a similar presentation as today two years ago, at that time he had more behavioral changes it was suspected he had polycythemia but his encephalopathy had resolved by discharge at that time without an exact cause determined. On presentation is tachycardic with HR 120s, slightly tachypneic, otherwise VS wnl, afebrile and normotensive, > 95% on RA. WBC 16.9, Hgb 19.9, PLT 510. PT 13.7, INR 1.3. BUN 35, Cr 2.6, K 6.5, lactate 3.7, t bili 1.8, d bili 0.9. Trop 61. ABG pending. EtOH and UDS pending. Blood cultures collected, pending. Imaging, including CXR, head CT, and CT A/P are without any acute findings. Principal Diagnosis 1. SIRS - etiology uncertain, but resolved 2. acute metabolic encephalopathy - resolved 3. lactic acidosis - resolved 4. acute kidney injury - resolved 5. mildly elevated INR - etiology uncertain 6. mildly elevated total bilirubin level - Gilbert's? 7. polycythemia Discharge Exam gen - mild thought blocking improved; stuttering but able to talk in complete sentences; stuttering is at baseline; no dysarthria; no aphasia eyes - no nystagmus skin - dejan complexion of face; darkly tanned elsewhere mouth - MMM neck - no JVD CV - RRR, s1 s2, no murmur lungs - CTA b/l abd - soft, NT, ND, BS+, no HSM ext - no edema, pulses 2+ b/l neuro - no asterixis or tremor psych - a/o x 3 Discharge Data Allergies Allergy/AdvReac Type Severity Reaction Status Date / Time iodine Allergy Severe Anaphylaxis Verified 08/22/18 09:30 codeine Allergy Intermediate Rash Verified 08/22/18 09:30 Consultations Hematology - Vance Valladares MD Neurology - Pj Sewell MD Procedures Performed Echocardiogram - EF 65-70%; normal LV wall motion; normal valve function; no PFO/shunt Overnight oximetry study (while on CPAP) -- no desaturation events noted Ordered Studies Abdomen/Pelvis CT 08/10/22 19:[address] WITHOUT CONTRAST HISTORY: Acute generalized abdominal pain with nausea and vomiting abd nv TECHNIQUE: Multiaxial CT images of the abdomen and pelvis were performed without contrast. A dose lowering technique was utilized adhering to the principles of ALARA. COMPARISON STUDY: Chest radiograph of same day FINDINGS: Study is degraded by respiratory motion artifact and limited by respiratory motion. The lung bases. No pneumatosis or pneumoperitoneum. Unremarkable spleen, pancreas, gallbladder and adrenal glands. Hepatic steatosis with hepatomegaly. 1.5 cm cyst of the hepatic dome. Unremarkable kidneys. No urolith or hydronephrosis identified. Circumferential urinary bladder wall thickening with partial distention. No abdominal aortic aneurysm. No lymphadenopathy identified. No bowel obstruction or bowel wall thickening. No ascites or mesenteric inflammation. Noninflamed appendix. Unremarkable soft tissues. No acute fracture identified. IMPRESSION: 1. No acute intra-abdominal or intrapelvic abnormality identified. 2. No bowel obstruction or bowel wall thickening. Normal appendix. ACT 112: Negative or not required by law. The above report was generated using voice recognition software. It may contain grammatical, syntax or spelling errors. Electronically signed by: Feroz Elliott M.D. 08/10/2022 8:46 PM Chest X-Ray 08/10/22 19:19 XR chest 1V portable HISTORY: 42 years-old Male nv acute nausea and vomiting COMPARISON: Chest radiograph 07/29/2020 TECHNIQUE: AP view of the chest FINDINGS: Cardiomediastinal and hilar silhouettes are within normal limits. No pneumothorax, pleural effusion, airspace consolidation or overt pulmonary edema. Bones of the chest appear grossly intact. IMPRESSION: No acute process. ACT 112: Negative or not required by law. The above report was generated using voice recognition software. It may contain grammatical, syntax or spelling errors. Electronically signed by: Feroz Elliott M.D. 08/10/2022 8:[address] 08/10/22 19:19 CT head/brain wo con CLINICAL HISTORY: 42 years-old Male with long onset 1800. Acutely altered mental status TECHNIQUE: Multiple axial CT images of the head were obtained without contrast. A dose lowering technique was utilized adhering to the principles of ALARA. CT DOSE: 1353.56 mGy.cm COMPARISON: Head CT 07/29/2020. FINDINGS: No acute intracranial hemorrhage, midline shift, intracranial mass, hydrocephalus, territorial ischemia or abnormal extra-axial collection. Slightly increased attenuation of the left middle cerebral artery is likely artifactual. The calvarium is intact. The paranasal sinuses, mastoid air cells, and middle ear cavities are clear. IMPRESSION: No acute intracranial abnormality. ACT 112: Negative or not required by law. The above report was generated using voice recognition software. It may contain grammatical, syntax or spelling errors. Electronically signed by: Feroz Elliott M.D. 08/10/2022 8:36 PM Gallbladder Ultrasound 08/11/22 10:17 ABDOMINAL ULTRASOUND, RIGHT UPPER QUADRANT HISTORY: abnl LFTs, elevated INR. COMPARISON: Abdomen and pelvis CT 08/10/2022. FINDINGS: Pancreas: The pancreatic head and tail are obscured by overlying bowel gas. The remaining portions of the pancreas are within normal limits. Liver: Mildly enlarged measuring 20 cm in length. There are 2 cysts within the right hepatic lobe with the largest measuring 14 mm. These appear to demonstrate thin septations. The main portal vein is patent. No hepatic masses. Gallbladder: No gallbladder wall thickening. No gallstones. CBD: 3 mm. Right kidney: No hydronephrosis. IMPRESSION: 1. Mild hepatomegaly. 2. Normal gallbladder. No gallstones ACT 112: Negative or not required by law. Electronically signed by: Harvey Bro M.D. 08/11/2022 5:14 PM Brain MRI 08/11/22 12:47 MR angio head wo con, MR brain wo con HISTORY: 42 years-old Male altered MS, headache acutely altered mental status with headache COMPARISON: MRV of same day, head CT 08/10/2022, MRA of the head 07/31/2020 TECHNIQUE: MRA of the head was obtained without the use of IV contrast utilizing 3-D [id number] sequencing with reformats. All measurements were obtained according to NASCET criteria. Noncontrast rain MRI also obtained. FINDINGS: MRA: The imaged distal internal carotid arteries, middle and anterior cerebral arteries are widely patent. The imaged distal vertebral arteries, basilar and posterior cerebral arteries are patent. No aneurysm, dissection, high-grade stenosis or arterial occlusion identified. MRI BRAIN: The patient was claustrophobic and was unable to complete the study. The axial T1, T2 and gradient echo series were not obtained. There is no restricted diffusion to suggest acute or subacute infarct. The midline structures appear unremarkable. Normal volume and signal of the brain parenchyma. IMPRESSION: 1. Unremarkable MRA of the head. 2. No acute or subacute infarct. 3. Limited MRI of the brain secondary to the patient's inability to complete the exam. ACT 112: Negative or not required by law. The above report was generated using voice recognition software. It may contain grammatical, syntax or spelling errors. Electronically signed by: Feroz Elliott M.D. 08/11/2022 5:02 PM Head MRA 08/11/22 12:47 MR angio head wo con, MR brain wo con HISTORY: 42 years-old Male altered MS, headache acutely altered mental status with headache COMPARISON: MRV of same day, head CT 08/10/2022, MRA of the head 07/31/2020 TECHNIQUE: MRA of the head was obtained without the use of IV contrast utilizing 3-D wgaa-[id number]-iqhwka sequencing with reformats. All measurements were obtained according to NASCET criteria. Noncontrast rain MRI also obtained. FINDINGS: MRA: The imaged distal internal carotid arteries, middle and anterior cerebral arteries are widely patent. The imaged distal vertebral arteries, basilar and posterior cerebral arteries are patent. No aneurysm, dissection, high-grade stenosis or arterial occlusion identified. MRI BRAIN: The patient was claustrophobic and was unable to complete the study. The axial T1, T2 and gradient echo series were not obtained. There is no restricted diffusion to suggest acute or subacute infarct. The midline structures appear unremarkable. Normal volume and signal of the brain parenchyma. IMPRESSION: 1. Unremarkable MRA of the head. 2. No acute or subacute infarct. 3. Limited MRI of the brain secondary to the patient's inability to complete the exam. ACT 112: Negative or not required by law. The above report was generated using voice recognition software. It may contain grammatical, syntax or spelling errors. Electronically signed by: Feroz Elliott M.D. 08/11/2022 5:02 PM Head/Brain Mag Res Venography 08/11/22 12:47 MR venography head wo con HISTORY: Altered mental status. Headache. TECHNIQUE: MRV of the brain was performed without contrast according to standard departmental protocol. COMPARISON STUDY: Head CT 08/10/2022. FINDINGS: The visualized internal jugular veins, sigmoid sinuses, transverse sinuses, straight sinus, vein of [place], internal cerebral veins, and superior sagittal sinus appear patent. IMPRESSION: No evidence for dural venous sinus thrombosis. ACT 112: Negative or not required by law. Electronically signed by: Harvey Bro M.D. 08/11/2022 4:32 PM Hospital Course (1) SIRS (systemic inflammatory response syndrome): patient presented with tachycardia, tachypnea, elevated lactate, elevated WBC count, etc. infectious source was never identified, however. COVID/RSV/flu negative. u/a was dirty but urine culture negative. Lyme testing, anaplasmosis, and babesiosis tests were negative. RUQ u/s obtained due to abnormal LFTs - no biliary tract disease. blood cx's negative during the stay. It was very unclear what caused his presentation and his SIRS. viral etiology? other? regardless of etiology his SIRS did resolve with IV fluids, supportive care, and time. see below. (2) Acute metabolic encephalopathy: The patient was initially mildly confused and had mild thought blocking / word- finding difficulties during his stay. MRI brain, MRA brain, and MRV failed to show acute CVA, aneurysm, dural thrombosis, etc. tox screen + for amphetamines but he takes prescribed stimulant medication for ADD. nothing else was found on tox screen. checked cortisol and TSH/FT4 - wnl ammonia wnl B12 wnl B1 level was sent and returned at 8 (normal 8-30). gave high-dose thiamine while hospitalized, and then sent him home with a course of PO thiamine 200mg BID x 1 month. low-normal thiamine levels could be contributing to chronic memory issues as reported by the patient and his spouse. Was altered MS 2nd to severe metabolic derangements at presentation? other issue? he never had evidence of meningitis during his stay. Finally, Dr Pj Sewell was consulted from [facility] to ensure no other process was present that was contributing to his neurocognitive state. Dr Sewell felt that his presenting metabolic disturbances likely caused his thought blocking/word-finding issues/etc. (3) Lactic acidosis: severely volume contracted at time of presentation cause of copious vomiting was very uncertain but resolved with supportive care only lactate normalized while here (4) Elevated INR: INR 1.2 in 2019 now 1.4 at admission RUQ u/s - mildly enlared liver/fatty liver but that doesn't explain the INR platelets not low thus no TTP, etc vit K deficiency? other? multiple doses of vitamin K were given with no significant improvement in his INR discharge INR was 1.3 differential - liver disease vs factor deficiencies vs polycythemia causing issues with the PT/INR assay leading to falsely elevated INR levels advise follow-up with hematology post-discharge for the mildly high INR as well as polycythemia (5) Elevated bilirubin: etiology? Gilbert's? no evidence of hemolysis RUQ u/s without biliary tract disease peak total bilirubin level was 1.8, improving to 1.2 before discharge with supportive care only ?Gilbert's syndrome, but I don't have other bilirubin levels from the past other than 2019 (which were wnl then) recommend repeat LFTs as outpatient to trend the bilirubin level (6) ENRRIQUE (acute kidney injury): resolved with IV fluids. peak Cr 2.6, improving to 0.99 at discharge. likely due to prerenal etioogy (volume contraction from copious emesis likely led to ENRRIQUE). no obstruction was seen on CT abd/pelvis. (7) Hyperkalemia: 2nd to ENRRIQUE resolved (8) Elevated troponin: myocardial demand ischemia in setting of tachycardia, ENRRIQUE, etc. no symptoms to suggest ACS. echo with nl LV Fx and normal wall motion. peak HS troponin was 89 (9) Polycythemia: Hgb 19.9 at presentation, improving to 16.7 at discharge does have chronic polycythemia and has had negative work-up for PCV in the past including a negative Jak2 mutation in September 2020 per report Hgb improved s/p IV fluids; thus, he did have an element of hemoconcentration on top of his chronic polycythemia heme/onc consult was completed by Dr Vance Valladares and polycythemia was thought 2nd REBECCA overnight oximetry study on his CPAP was completed to ensure he does not desaturate and this returned normal (10) REBECCA on CPAP: cont CPAP at night. compliant w/ such at home. overnight oximetry study completed during the stay (while wearing CPAP) returned normal (ie - he does not need supplemental oxygen blended into his CPAP). (11) GERD (gastroesophageal reflux disease): Continue PPI (12) Anxiety and depression: Continue Wellbutrin. (13) ADHD: We held his dextroamphetamine during the hospitalization. Tox screen showed evidence of this med. PDMP confirms chronic usage of this med. 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 (15) Weight loss: patient reported weight loss in the months leading up to this stay. etiology?? checked TSH/FT4 in am - both negative/wnl. cortisol wnl. May need outpatient EGD/colonoscopy for additional w/u, etc. (16) History of concussion: h/o multiple head injuries/concussions earlier in life perhaps this is the cause of chronic low-grade memory issues?? outpatient neuropsych testing would be helpful; advised to make appointment with [facility] for such (17) Memory difficulty: recommended neuropsych testing as outpatient replace low-normal vitamin B1 levels Total Time Total Time Spent Total Time Spent (In Minutes): 60 Discharge Plan Discharge Items Patient Disposition: Home - Self-Care Reason For Visit: Severe vomiting, Confusion, High potassium Discharge Diagnosis: 1. severe vomiting - exact cause uncertain 2. confusion and word-finding difficulties - likely related to acute kidney failure, high potassium, lactic acidosis, other metabolic causes - improved/resolved 3. acute kidney failure - resolved 4. polycythemia 5. sleep apnea 6. elevated INR - discharge INR 1.3 - cause uncertain, follow-up level needed 7. mildly elevated bilirubin level - improved 8. recent weight loss Activity: As commented below Activity Comment: light activities only until you see your family doctor Sexual Activity: Wait until after follow-up appointment Exercise/Sports: Wait until after follow-up appointment Driving/Machine Use: No driving until cognition is back to normal Non-emergency contact: Primary Care Provider Call non-emergency contact if: you have any medication questions, your symptoms worsen and you have a fever Follow-up/Referrals: [facility] [Provider Group] - 09/30/22 1:30 pm (first available - at your convenience - Neurology visit to check memory/perform memory testing Appointment with Orin Houston) Thien Keller CRNP [Primary Care Provider] - 08/18/22 10:30 am (Saturday 08/18 or Sunday 08/19 if possible) Diet: Regular Addtl Attending Provider Instructions: Mr Valdez, Benedicto were admitted to [facility] for a host of symptoms and metabolic abnormalities on your labs. You had had severe vomiting the day of admission along with confusion, headache, dizziness/feeling like you may pass out, etc. Your admission labs showed polycythemia (your hemoglobin was nearly 20), acute kidney failure (your creatinine was 2.6), high potassium, elevated lactate levels, high white blood cell count, and other abnormalities. Some of your liver tests and your INR were also abnormal. You improved with IV fluids, supportive care, and time. We did not find any obvious infections. An MRI of the brain was normal. An MRA of the brain vessels did not show aneurysm or other abnormalities. An "MRV" of the brain to exclude blood clots in the head was negative. Your echocardiogram was normal. Dr Valladares from hematology saw you in consult and felt that your polycythemia was due to sleep apnea. Dr Sewell from neurology saw you as well and felt your word-finding troubles, etc, was left over from the recent metabolic derangements. An overnight oximetry study was normal - you do not need supplemental oxygen at night-time with your CPAP. It is very uncertain what the underlying cause of your presenting illness was. If this was some form of viral infection your presenting symptoms would have been very atypical for such. With respect to the mildly elevated INR this could be due to liver disease, vitamin K deficiency, a clotting factor problem (deficiency), or a spurious reading due to your polycythemia. The INR only minimally improved with several doses of vitamin K arguing against this vitamin deficiency. Recommendations - 1. please take it easy, hydrate, rest, and perform light activities only until you see your family doctor 2. consider seeing neurology for memory testing 3. please have your CBC, electrolytes, kidney function, liver function tests, and INR all repeated at the time of your follow-up 4. take thiamine 200mg twice daily x 30 days 5. if your INR remains elevated I would suggest seeing hematology as an outpatient Return to [facility] if - * you develop fevers over 100.4 degrees * you have worsening memory, word-finding difficulties, thinking/cognition, confusion, etc * you have recurrent vomiting * you have severe headache * any other concerns Please continue to feel better! Pending Studies at Discharge: Yes Studies:: tick borne disease labs; thiamine (vitamin B1) level Stand-Alone Forms: [facility] Medium, Work/School Release, Smoking Cessation Medications and DC Order Prescriptions: New thiamine HCl (vitamin B1) 100 mg tablet 200 mg PO BID 30 Days Qty: 120 0RF Continued omeprazole magnesium [Prilosec OTC] 20 mg Tablet,Delayed Release (Dr/Ec) 20 mg PO BID albuterol sulfate 90 mcg/actuation Hfa Aerosol Inhaler 1 puff INHALATION QID PRN (Reason: SOB) dextroamphetamine sulfate 15 mg capsule, extended release 30 mg PO BID bupropion HCl 200 mg tablet sustained-release 12 hr 200 mg PO BID aspirin 81 mg tablet,delayed release (DR/EC) 81 mg PO DAILY Qty: 90 3RF Discharge Orders: Discharge Order (Routine); Ordered 08/13/22 Ordered By: Blake Llanos Admission Data Admit Date/Time: 08/10/22 21:46 Attending Provider: Blake Llanos Admit Provider: Shiraz Mclaughlin Primary Care Provider: Thien Keller Other Providers: Shiraz Mclaughlin ; Vance Valladares Emile Other Interventions: Discharge Summary Assessment (RN) Last Done: 08/13/22 16:05 Coding Level of Care Code D/C DAY MANAGEMENT >30 MINS Diagnoses SIRS (systemic inflammatory response syndrome) R65.10 Acute metabolic encephalopathy G93.41 Lactic acidosis E87.20 Elevated INR R79.1 Elevated bilirubin R17 ENRRIQUE (acute kidney injury) N17.9 Hyperkalemia E87.5 Elevated troponin R77.8 Polycythemia D75.1 REBECCA on CPAP G47.33; Z99.89 GERD (gastroesophageal reflux disease) K21.9 Anxiety and depression F41.9; F32.A ADHD F90.9 Congenital glaucoma Q15.0 Weight loss R63.4 History of concussion Z87.820 Memory difficulty R41.3
[2022-08-14 05:08] LABS: Babesia microti DNA Not Detected (Not Detected)
== END 2022-08-13 17:47 | disposition home or self-care (01) | DRG 871 ==
LOC: ED 19:01 → 4W 21:46 → SUATTDRO 21:46 → 4W 22:57